=== PATIENT | female | born 1930 | race Caucasian/White ===

== ENCOUNTER 2017-02-06 06:14 | Inpatient (IN) | payer MEDICARE, BC ==
[2017-02-06 06:47] LABS: Hematocrit 41 % (35-47); Hemoglobin 14.3 g/dl (12.0-16.0); Mean Corpuscular HGB Conc 35 g/dl (31-36); Mean Corpuscular Hemoglobin 30 pg (27-31); Mean Corpuscular Volume 87 fL (80-97); Mean Platelet Volume 9 um3 (7.4-10.4); Red Blood Count 4.73 10^6/ul (4.0-5.4); Red Cell Distribution Width 13 % (10.5-15); White Blood Count 7.2 10^3/ul (3.5-10.8)
[2017-02-06 06:59] LABS: Troponin I 0.01 ng/mL (<0.04)
[2017-02-06 07:00] LABS: Albumin 3.8 g/dL (3.2-5.2); BUN/Creatinine Ratio 19.6 (8-20); Calcium 9.2 mg/dL (8.6-10.3); EGFR African American 73.9 (>60); EGFR Non-African American 57.5 (>60); Total Bilirubin 0.7 mg/dL (0.2-1.0); Total Protein 6.8 g/dL (6.4-8.9)
[2017-02-06] MEDS ORDERED: Iodixanol* (CONTRAST) 320 MG/ML 100 ML SDV IV ONE (07:06)
--- NOTE | 2017-02-06 07:48 | RAD ---
HISTORY: Dizziness COMPARISONS: None TECHNIQUE: Multiple contiguous axial CT scans were obtained of the head without intravenous contrast. FINDINGS: HEMORRHAGE/INFARCT: There is no hemorrhage or acute infarct. MASSES/SHIFT: There is no mass or shift. EXTRA-AXIAL SPACES: There are no extra-axial fluid collections. SULCI AND VENTRICLES: The sulci and ventricles are normal in size and position for the patient's stated age. CEREBRUM: There are no focal parenchymal abnormalities. BRAINSTEM: There are no focal parenchymal abnormalities. CEREBELLUM: There are no focal parenchymal abnormalities. VESSELS: There is calcification of the cavernous segments of the internal carotid arteries bilaterally and of the distal vertebral arteries bilaterally. PARANASAL SINUSES: The paranasal sinuses are clear. ORBITS: The orbits are unremarkable. BONES AND SOFT TISSUE: No bone or soft tissue abnormalities are noted. OTHER: None IMPRESSION: NO ACUTE INTRACRANIAL PATHOLOGY.
--- NOTE | 2017-02-06 07:52 | RAD ---
INDICATION: Short of breath COMPARISON: Chest x-ray February 06, 2017 TECHNIQUE: Noncontrast axial source images were obtained from the thoracic inlet to the hemidiaphragms. Coronal and sagittal reconstructed images were acquired. The thyroid is heterogeneous with multiple low density nodules. Chest wall: There are no acute abnormalities of the bony thorax or chest wall. There is sternotomy There is no supraclavicular, infraclavicular, or axillary lymphadenopathy. Lungs : There are infiltrates. There are several subcentimeter, noncalcified parenchymal nodules likely represent chronic inflammatory foci. The largest of these measures 4 mm. The pulmonary interstitium appears normal. There are no endobronchial lesions. Cardiomediastinal structures: The heart is normal in size. There is no pericardial effusion. There is no evidence of aortic aneurysm or dissection. The pulmonary vessels appear normal. There is no mediastinal or hilar adenopathy. The esophagus appears normal. Pleura : There are no pleural-based masses or effusions. Other: There are no acute or significant CT findings of the visualized upper abdomen. IMPRESSION: POSTOPERATIVE CHANGES. PROBABLE CHRONIC INFLAMMATORY FOCI.
--- NOTE | 2017-02-06 07:56 | RAD ---
INDICATION: Short of breath COMPARISON: None TECHNIQUE: An AP portable view obtained at 0707 hours is submitted. FINDINGS: Bones/Soft Tissues: There are no acute bony findings. There is prior sternotomy. Cardiomediastinal: The cardiomediastinal silhouette is normal. Lungs: There are no infiltrates. Pleura: There are no pleural effusions. Other: None IMPRESSION: NO ACTIVE DISEASE.
[2017-02-06] MEDS ORDERED: NS 0.9% 1000 ML* 1,000 ML IV ONE (09:07)
[2017-02-06 09:29] LABS: Urine Bacteria Absent (Absent); Urine Bilirubin Negative (Negative); Urine Glucose 3+(>=500 mg/dL) (Negative); Urine Nitrite Negative (Negative)
[2017-02-06] MEDS ORDERED: Ondansetron INJ* 2 MG/ML VIAL IV ONE (09:38)
[2017-02-06] MEDS ORDERED: Insulin REGULAR(*) 1 UNITS UNIT IV PUSH ONE ×2 (09:39→12:22)
[2017-02-06] MEDS ORDERED: Gabapentin CAP(*) 100 MG PO ONE (10:47)
[2017-02-06 11:35] LABS: Urine Bacteria Absent (Absent); Urine Bilirubin Negative (Negative); Urine Glucose 3+(>=500 mg/dL) (Negative); Urine Nitrite Negative (Negative)
[2017-02-06] MEDS ORDERED: LORazepam TAB(*) 1 MG PO ONE (13:07)
[2017-02-06] MEDS ORDERED: Acetaminophen TAB* 325 MG PO PRN (15:10)
[2017-02-06] MEDS ORDERED: Dextrose 50% Syringe 50 ML* 25 GM/50 ML SYRINGE IV PUSH PRN (15:10)
[2017-02-06] MEDS ORDERED: Ondansetron INJ* 2 MG/ML VIAL IV PRN (15:10)
[2017-02-06] MEDS ORDERED: NS 0.9% 1000 ML* 1,000 ML IV SCH (15:15)
[2017-02-06 15:47] LABS: Hematocrit 39 % (35-47); Hemoglobin 13.5 g/dl (12.0-16.0); Mean Corpuscular HGB Conc 35 g/dl (31-36); Mean Corpuscular Hemoglobin 30 pg (27-31); Mean Corpuscular Volume 87 fL (80-97); Mean Platelet Volume 9 um3 (7.4-10.4); Red Blood Count 4.47 10^6/ul (4.0-5.4); Red Cell Distribution Width 13 % (10.5-15); White Blood Count 8.5 10^3/ul (3.5-10.8)
[2017-02-06 16:04] LABS: Troponin I 0.01 ng/mL (<0.04)
[2017-02-06 16:18] LABS: BUN/Creatinine Ratio 16.5 (8-20); Calcium 8.7 mg/dL (8.6-10.3); EGFR African American 74.9 (>60); EGFR Non-African American 58.2 (>60)
--- NOTE | 2017-02-06 16:50 | ED ---
Ty Douglas Auryana, scribed for Curtis Banegas MD on 02/06/17 at 0735 . Progress - Progress Note Progress Note: SIGNOUT FROM DR. CONSTANTINO TO DR. BANEGAS AT 07:[address], CT CHEST, AND CXR 87 year old female presents with SOB on initial arrival to ED. She denies SOB and CP on ED physician visit but still has nausea. She is Alert and oriented. 10:30 - SPOKE WITH FAMILY - WORRIED ABOUT PATIENT BECAUSE SHE IS UNSTEADY ON HER FEET - Results/Orders Results/Orders: CT CHEST W/ CONTRAST IMPRESSION: POSTOPERATIVE CHANGES. PROBABLE CHRONIC INFLAMMATORY FOCI. CXR IMPRESSION: NO ACTIVE DISEASE. CT BRAIN IMPRESSION: NO ACUTE INTRACRANIAL PATHOLOGY DX: DIABETIC HYPERGLYCEMIA AND PERIPHERAL NEUROPATHY Re-Evaluation - Re-Evaluation First Eval Re-Evaluation Time: 13:10 - patient does not wish to be discharged home and states that she cannot walk Course/Dx - Course Course Of Treatment: Test results WNL except for glucose 304. UA contaminated even though it was a straight cath. Influenza A/B was negative. CXR: IMPRESSION: NO ACTIVE DISEASE. HEAD CT: IMPRESSION: NO ACUTE INTRACRANIAL PATHOLOGY. CHEST CT: IMPRESSION: POSTOPERATIVE CHANGES. PROBABLE CHRONIC INFLAMMATORY FOCI. In the ED course patient was hydrated and insulin given for hyperglycemia symptoms improved. I disclosed my findings and results with the family and patient - think [place] [facility] [place]iscussed with family and patient that there are no abnormal findings for admission however the patient was unable to ambulate on her own. I tried to ambulate patient myself- patient was very weak. Discussed physical exam findings with Dr. Li who accepted the patient for admission. - Diagnoses Provider Diagnoses: Peripheral neuropathy, Diabetes mellitus with hyperglycemia, Unable to ambulate - Provider Notifications Discussed Care Of Patient With: Dr. Li Time Discussed With Above Provider: 13:40 - agrees to admit patient The documentation as recorded by the Ty owusu Auryana accurately reflects the service I personally performed and the decisions made by me, Curtis Banegas MD.
[2017-02-06] MEDS: ceFAZolin VIAL(*) 1 GM in NS 0.9% 50 ML* 50 ML IVPB SCH (16:59)
[2017-02-06] MEDS: Insulin GLARGINE(*) 1 UNITS UNIT SUBCUT SCH (17:43)
[2017-02-06] MEDS: Insulin LISPRO* 1 UNITS UNIT SUBCUT SCH (17:47)
[2017-02-06] MEDS: Gabapentin CAP(*) 100 MG PO SCH (22:06)
[2017-02-06] MEDS: Heparin VIAL(*) 5000 UNITS/ML VIAL (FIVE THOUSAND) SUBCUT SCH (22:07)
[2017-02-06] MEDS: LORazepam TAB(*) 0.5 MG PO PRN (22:17)
--- NOTE | 2017-02-06 23:16 | HP ---
HISTORY AND PHYSICAL: DATE OF ADMISSION: 02/06/17 - ROOM #444 PRIMARY CARE PROVIDER: Dr. Sarah Benavides. ATTENDING PHYSICIAN WHILE IN THE HOSPITAL: Dr. Zan Li * (report dictated by Dayne Wright NP). CHIEF COMPLAINT: Weakness. HISTORY OF PRESENT ILLNESS: Ms. Tricia Daniels is an 87-year-old female patient. She has a history of diabetes, hypertension, hyperlipidemia, breast cancer, coronary artery disease, vertigo, and neuropathy. She comes in today stating that she has not been feeling well particularly over the last 6 months. She was in and out of the hospital down in [place]. She relocated up here to be closer to her family and she has noticed that she has been having issues with weakness and having difficulty. She says that she came to the hospital today because she got up this morning, she felt like something had changed. She felt like she was more weak. She felt little lightheaded particularly with position change. She felt dizzy. She felt like she was going to faint. She pressed her Life Alert and she was brought in to the hospital. She denied having any chest pain. She denied having any shortness of breath. Denied having any abdominal pain or any nausea or vomiting. No fevers or any cough. She said that she has been having some dyspnea on exertion. She says she has not had any fevers or chills. She just felt weak, felt tired, and she was concerned. She also said that she noticed that she has had some pain on her bottom. She thinks that she may have a pimple or a sore there and she says this was bothering her as well, but is not painful now. It is only if she is in one position for too long. She denied any fevers or chills. She came in to the ER. There was concern because of the weakness and the hospitalist service was asked to evaluate for admission. PAST MEDICAL HISTORY: Significant for: 1. Diabetes. 2. Hypertension. 3. Hyperlipidemia. 4. Breast cancer. 5. CAD. 6. Vertigo. 7. Neuropathy. PAST SURGICAL HISTORY: 1. She has had a CABG. 2. Laparoscopic cholecystectomy. HOME MEDICATIONS: Include: 1. Vitamin D 1000 units p.o. daily. 2. Coreg 25 mg p.o. daily. 3. Aspirin 81 mg daily. 4. Insulin aspart sliding scale subcu a.c. 5. Fish oil 1 capsule p.o. daily. 6. Losartan 100 mg daily. 7. Lantus 18 units subcu q.p.m. 8. Lipitor 10 mg p.o. daily. 9. Amlodipine 5 mg daily. 10. Neurontin 100 mg p.o. t.i.d. ALLERGIES TO MEDICATIONS: Include no known drug allergies. FAMILY HISTORY: Her mother had a history of CVA. Father passed of old age. SOCIAL HISTORY: She does not smoke. Does not drink. Surrogate decision maker is her son. REVIEW OF SYSTEMS: There is no documented fever. She denied having any significant weight change. There was no double vision. There is no ear discharge. She denies having any rhinorrhea. There is no sore throat. No thyroid enlargement. She denies having any chest pain. There was no orthopnea. There is no nocturnal dyspnea. There is no abdominal pain. No nausea. No vomiting. There was no dysuria. There was no frequency. There was no seizure. No loss of consciousness. No pruritus. There is a skin ulceration. Review of 14 systems completed, all others negative. PHYSICAL EXAMINATION GENERAL: At this time, Ms. Daniels is an 87-year-old female. She is sitting in the ER stretcher. She does not appear to be in any acute distress. VITAL SIGNS: Blood pressure 151/63 with a pulse of 66, respirations 24, O2 sat 98%, and temperature of 99.0. HEENT: Head is atraumatic and normocephalic. Eyes: EOMs are intact. Sclerae anicteric and not pale. Throat: Oral mucosa appears to be moist. No oropharyngeal erythema. NECK: Supple. LUNGS: Clear to auscultation. No wheezes, rales, or rhonchi. HEART: Sounds S1, S2. Regular rate and rhythm. No murmurs, rubs, or gallops. ABDOMEN: Soft, flat, and nontender. Bowel sounds present. EXTREMITIES: Pulses were 2+ throughout. She is able to move all 4 extremities with 5/5 strength. NEUROLOGIC: She is awake, alert, and oriented x3. Tongue midline. Civil Engineering Project Manager are equal. No gross focal deficits. SKIN: Intact with the exception she has a stage 2 pressure ulcer, it is about 2 cm x 2 cm. It was a surrounding area of erythema noted to the sacrum. Otherwise intact. LABORATORY DATA AND DIAGNOSTIC STUDIES: Revealed WBC of 7.2, RBC of 4.73, hemoglobin of 14.3, hematocrit of 41, platelet count 195. INR of 0.95. PTT of 26.7. Sodium 136, potassium 4.0, chloride of 100, bicarb 24, BUN 18, creatinine of 0.92, glucose of 304. The lactic was 1.4, calcium 9.2. Total bili 0.7, AST 12, ALT 11, alk phos 88. Troponin 0.01. Albumin of 3.8. Urine showed high specific gravity of 1.050, 1+ protein, 1+ ketones, 1+ blood, present squamous epithelial cells, 3+ glucose. She had multiple imaging here in the ER starting out with a brain CT, which revealed no intracranial pathology. She had a chest CT, which showed postoperative changes, probable chronic inflammatory foci. There were noncalcified nodules likely representing chronic inflammatory foci. She had a chest x-ray as well which on my review, I did not appreciate any acute infiltrates. Radiology read it as no active disease. There was an EKG obtained today as well, which showed a normal sinus rhythm, rate of 75. She did have a PAC. No ST elevation. She appears to have an interventricular conduction delay. It looks like a left bundle, but there is no previous EKG for comparison. Old medical records were reviewed. ASSESSMENT AND PLAN: Ms. Daniels is an 87-year-old female patient coming in to the ER today with complaints of weakness and now on evaluation in the ED, initially, they had been trying to discharge the patient; however, there was concern because of the weakness she to do well at home and we were asked to evaluate. On evaluation, there was concern that she has a new pressure ulcer that may be some cellulitis around it. She will be admitted under observation status for: 1. Weakness: It could be related to the fact that she does have an underlying infection, I think this pressure ulcer. I am going to try her on Ancef 2 g every 8 hours. In addition to this, we will get PT evaluation and her evaluated. 2. Presyncope: At this point, again, she had an episode where she felt like she was going to faint. My plan is to go ahead and get her on telemetry, cycle her troponins, check an echo as well and follow. 3. Diabetes: She has been on lispro sliding scale and Lantus. I will check an A1c . 4. Hypertension: Continue meds as prescribed. 5. Hyperlipidemia: Continue statin therapy. 6. Coronary artery disease: Continue her beta-elizabeth, statin, and aspirin. 7. Neuropathy: We will continue Neurontin 100 t.i.d. 8. Vertigo: Continue medications as prescribed. 9. Breast cancer: She is scheduled for a lumpectomy, it sounds like in the outpatient setting. She needs to follow with her primary. 10. DVT prophylaxis: She will be placed on heparin subcu as she is high risk. 11. Code status: She wishes to be a DNR. MOLST filled out. 12. Fluids, electrolytes, and nutrition: She can have a consistent carbohydrate diet. TIME SPENT: Time spent on the admission was 60 minutes; greater than half the time was spent [id number] with the patient obtaining my history and physical, other half the time spent going over the plan of care with the patient and implementing plan of care. I did discuss the plan of care with my attending, Dr. Li; he is in agreement. DAYNE WRIGHT NP CC: Dr. Sarah Benavides * [id number]/CPS #: [id number] MTDD
[2017-02-07] MEDS: ceFAZolin VIAL(*) 1 GM in NS 0.9% 50 ML* 50 ML IVPB SCH ×3 (01:12→16:27)
[2017-02-07] MEDS: Heparin VIAL(*) 5000 UNITS/ML VIAL (FIVE THOUSAND) SUBCUT SCH ×3 (05:49→21:38)
[2017-02-07] MEDS ORDERED: Carvedilol TAB* 25 MG PO SCH (08:30)
[2017-02-07] MEDS: Insulin LISPRO* 1 UNITS UNIT SUBCUT SCH ×3 (08:34→16:35)
[2017-02-07] MEDS: Losartan TAB* 25 MG PO SCH (08:35)
[2017-02-07] MEDS: Atorvastatin* 10 MG TAB PO SCH (08:35)
[2017-02-07] MEDS: amLODIPine TAB* 5 MG PO SCH (08:35)
[2017-02-07] MEDS: Gabapentin CAP(*) 100 MG PO SCH ×3 (08:35→21:34)
[2017-02-07] MEDS: Aspirin EC Low Dose* 81 MG TAB.EC PO SCH (08:35)
--- NOTE | 2017-02-07 09:46 | ECHO ---
Patient: CARLOS BETHEA [facility] Rec#: [id number] : 1930 Date: 02/07/2017 Age: 87y Height: 165.1 cm / 65.0 in Weight: 88.5 kg / 195.1 lbs Sex: F BSA: 2 Room#: [facility] Admit Date#: 02/06/2017 Type: Inpatient Referring: Dayne Wright NP Reading: Juan Anderson MD Mold Repairer: Jessica Garza RN RDCS Transthoracic Echocardiogram Indication: Shortness of breath, near syncope BP: 143/50 HR: 70 Rhythm: NSR Findings History: CAD, CABG, HTN, HLD, DM, breast cancer, vertigo, neuropathy Technical Comments: The study is technically limited due to patient body habitus. Completed at 0930. Left Ventricle: The left ventricular chamber size is normal. There is global hypokinesis of the left ventricle with minor regional variation. There is mildly decreased left ventricular systolic function. The estimated ejection fraction is 45-50%. Ventricular septal wall motion has a post-operative appearance. There is a left ventricular septal wall motion abnormality observed, possibly due to the presence of a left bundle branch block. There is an E to A reversal in the mitral valve flow pattern suggestive of diastolic dysfunction. Left Atrium: The left atrial chamber size is normal. Right Ventricle: The right ventricular chamber size and systolic function are within normal limits. Right Atrium: The right atrial cavity size is normal. There is evidence of an atrial septal aneurysm. Aortic Valve: The aortic valve is trileaflet. The aortic valve leaflets are mildly thickened. There is no evidence of aortic regurgitation. There is no evidence of aortic stenosis. Mitral Valve: The mitral valve leaflets are mildly thickened. There is a trace of mitral regurgitation. There is no evidence of mitral stenosis. Tricuspid Valve: The tricuspid valve leaflets are normal. There is trace to mild tricuspid regurgitation. Unable to estimate the right ventricular systolic pressure. Pulmonic Valve: The pulmonic valve appears normal. There is mild pulmonic regurgitation. There is no pulmonic stenosis. Pericardium: There is no significant pericardial effusion. A pericardial fat pad is visualized. Aorta: There is no dilatation of the ascending aorta. There is no dilatation of the aortic arch. The aortic root is normal in size. Pulmonary Artery: The main pulmonary artery appears normal. Venous: The inferior vena cava appears normal in size. There is a greater than 50% respiratory change in the inferior vena cava dimension. Conclusions There is global hypokinesis of the left ventricle with minor regional variation. Ventricular septal wall motion has a post-operative appearance. There is a left ventricular septal wall motion abnormality observed, possibly due to the presence of a left bundle branch block. The estimated ejection fraction is 45-50%. There is an E to A reversal in the mitral valve flow pattern suggestive of diastolic dysfunction. There is evidence of an atrial septal aneurysm. There is a trace of mitral regurgitation. There is trace to mild tricuspid regurgitation. There is mild pulmonic regurgitation. No reports of prior studies are offered for comparison. Measurements Name Value Normal Range RVDdMajor (2D) 3.4 cm (2.2 - 4.4) RAd ISD 4CH 3.8 cm (3.4 - 4.9) RA (A4C)W 4.1 cm (2.9 - 4.6) IVSd (2D) 1 cm (0.6 - 1) LVPWd (2D) 1 cm (0.6 - 1) LVIDd (2D) 4.3 cm (3.6 - 5.4) LVIDs (2D) 3.6 cm - LV FS (2D) 16 % (25 - 45) Aortic Annulus 2.1 cm (1.4 - 2.6) Ao root diameter (2D) 2.7 cm (2.1 - 3.5) Ascending Ao 2.9 cm (2.1 - 3.4) Aortic arch 2.5 cm (1.8 - 3.4) LA dimension (AP) 2D 3.4 cm (2.3 - 3.8) LAd ISD 4CH 4.4 cm (2.9 - 5.3) LA ISD 4CH W 3.8 cm (2.5 - 4.5) Name Value Normal Range LA ESV SP 4CH (A/L) 45 ml - LA ESV SP 2CH (A/L) 56 ml - LA ESV BP (A/L) 52 ml - LA ESV BP (A/L) index 26.4 ml/m2 - LA ESV SP 4CH (MOD) 38 ml - LA ESV SP 2CH (MOD) 54 ml - Name Value Normal Range MV E-wave Vmax 0.88 m/sec - MV deceleration time 193 msec - MV A-wave Vmax 1.2 m/sec - MV E:A ratio 0.7 ratio - LV septal e' Vmax 0.05 m/sec - LV lateral e' Vmax 0.06 m/sec - LV E:e' septal ratio 17.6 ratio - LV E:e' lateral ratio 14.7 ratio - Name Value Normal Range AV Vmax 1.3 m/sec - AV VTI 30 cm - AV peak gradient 7 mmHg - AV mean gradient 4 mmHg - LVOT Vmax 1.3 m/sec - LVOT VTI 30 cm - LVOT peak gradient 7 mmHg - LVOT mean gradient 4 mmHg - JENI Vmax 0.69 m/sec - Name Value Normal Range IVC diameter 1.5 cm - Name Value Normal Range PV Vmax 1 m/sec -
--- NOTE | 2017-02-07 10:21 | PN ---
Subjective Date of Service: 02/07/17 Interval History: Patient seen and examined at bedside. She reports feeling better this morning. Denies CP, SOB, abd pain, n/v. She has not felt dizzy or weak this morning or overnight. Telemetry: strips show some missed beats concerning for Mobitz Type 1 overnight Follow up strip at 9:27 show some non-conducted P-waves that may indicate Mobitz Type II. Family History: Unchanged from Admission Social History: Unchanged from Admission Past Medical History: Unchanged from Admission Objective Active Medications: Acetaminophen (Tylenol Tab*) 650 mg PO Q4H PRN PRN Reason: FEVER/PAIN Amlodipine Besylate (Norvasc Tab*) 5 mg PO DAILY [facility] Last Admin: 02/07/17 08:35 Dose: 5 mg Aspirin (Aspirin Ec Low Dose*) 81 mg PO DAILY [facility] Last Admin: 02/07/17 08:35 Dose: 81 mg Atorvastatin Calcium (Lipitor*) 10 mg PO DAILY [facility] Last Admin: 02/07/17 08:35 Dose: 10 mg Dextrose (D50w Syringe 50 Ml*) 12.5 gm IV PUSH .FOR FS < 60 - SS PRN PRN Reason: FS < 60 Gabapentin (Neurontin Cap(*)) 100 mg PO TID [facility] Last Admin: 02/07/17 08:35 Dose: 100 mg Heparin Sodium (Porcine) (Heparin Vial(*)) 5,000 units SUBCUT Q8HR [facility] Last Admin: 02/07/17 05:49 Dose: 5,000 units Cefazolin Sodium 1 gm/ Sodium (Chloride) 50 mls @ 200 mls/hr IVPB Q8H [facility] Last Admin: 02/07/17 08:34 Dose: 200 mls/hr Insulin Glargine (Lantus(*)) 80 units SUBCUT QPM [facility] Last Admin: 02/06/17 17:43 Dose: 80 unit Insulin Human Lispro (Humalog*) 0 units SUBCUT AC [facility] PRN Reason: Protocol Last Admin: 02/07/17 08:34 Dose: 3 unit Lorazepam (Ativan Tab(*)) 0.5 mg PO Q8H PRN PRN Reason: ANXIETY Last Admin: 02/06/17 22:17 Dose: 0.5 mg Losartan Potassium (Cozaar Tab*) 100 mg PO DAILY [facility] Last Admin: 05/23/17 08:35 Dose: 100 mg Ondansetron HCl (Zofran Inj*) 4 mg IV Q6H PRN PRN Reason: NAUSEA Vital Signs 02/06/17 02/06/17 02/06/17 15:00 15:20 15:30 Temperature 98.3 F Pulse Rate 77 83 Respiratory 18 16 19 Rate Blood Pressure 162/88 147/53 150/66 (mmHg) O2 Sat by Pulse 99 99 Oximetry 02/06/17 02/06/17 02/06/17 16:00 16:15 16:57 Temperature Pulse Rate 78 73 Respiratory 17 18 Rate Blood Pressure 148/80 151/54 (mmHg) O2 Sat by Pulse 99 96 Oximetry 02/06/17 02/06/17 02/06/17 17:04 18:12 18:14 Temperature Pulse Rate 79 88 Respiratory 16 Rate Blood Pressure 154/55 134/60 (mmHg) O2 Sat by Pulse 97 Oximetry 02/06/17 02/06/17 02/06/17 19:33 20:00 22:06 Temperature 98.1 F Pulse Rate 75 Respiratory 20 20 20 Rate Blood Pressure 145/55 (mmHg) O2 Sat by Pulse 97 97 Oximetry 02/06/17 02/06/17 02/07/17 22:17 23:37 00:06 Temperature 97.3 F Pulse Rate 72 Respiratory 20 16 20 Rate Blood Pressure 135/52 (mmHg) O2 Sat by Pulse 99 Oximetry 02/07/17 02/07/17 02/07/17 00:17 02:29 03:56 Temperature 97.6 F Pulse Rate 73 Respiratory 20 16 Rate Blood Pressure 143/50 (mmHg) O2 Sat by Pulse 99 99 Oximetry 02/07/17 02/07/17 02/07/17 07:53 08:00 08:35 Temperature 97.6 F Pulse Rate 71 Respiratory 16 17 16 Rate Blood Pressure 146/53 (mmHg) O2 Sat by Pulse 97 Oximetry Oxygen Devices in Use Now: None Appearance: Elderly female, lying in bed, NAD Eyes: PERRLA Ears/Nose/Mouth/Throat: Mucous Membranes Moist Neck: NL Appearance and Movements; NL JVP Respiratory: Symmetrical Chest Expansion and Respiratory Effort, Clear to Auscultation Cardiovascular: NL Sounds; No Murmurs; No JVD, RRR Abdominal: NL Sounds; No Tenderness; No Distention Extremities: No Edema Skin: - - stage II Neurological: Alert and Oriented x 3 Lines/Tubes/Other Access: Clean, Dry and Intact Peripheral IV Nutrition: Taking PO's Result Diagrams: 02/06/17 15:40 02/06/17 15:40 Microbiology and Other Data: Microbiology 02/06/17 15:25 Nasal Screen MRSA (PCR)([facility]) - Final Nasal Mrsa Negative 02/06/17 15:46 Influenza Types A,B Antigen ([facility]) - Final Nasal Specimen received for Influenza A/B Molecular testing Assess/Plan/Problems-Billing Assessment: Ms. Daniels is an 87 yo female with a PMH of DM, HTN, HLD, BrCa, CAD, vertigo, and neuropathy who presented to the ED on 02/06 with concern for weakness and presyncope. - Patient Problems (1) Pre-syncope Comment: No episodes today. Patient's telemetry strip shows missed beats - strip appears consistent with Wenckebach. Reviewed strips with Dr. Camargo; appreciate cardiology input. Patient's carvedilol held; cardiology recommends continued monitoring over next 24 hours. Patient asymptomatic during episodes this AM. Echocardiogram does not show any severe valvular abnormalities, EF 45-50%, left ventricular septal wall motion abnormality (which is consistent with apparent LBBB on patient's EKG). (2) Weakness Code(s): R53.1 - WEAKNESS Comment: May be secondary to arrhythmias Patient also has wound, which appears to have mild cellulitis. Continue Ancef. PT consult (3) Stage II pressure ulcer Code(s): L89.92 - PRESSURE ULCER OF UNSPECIFIED SITE, STAGE 2 Comment: Appreciate wound consult. Continue Mepilex and frequent repositioning. (4) Diabetes mellitus Code(s): E11.9 - TYPE 2 DIABETES MELLITUS WITHOUT COMPLICATIONS Comment: HgbA1c 6.8 Continue Lispro SSI and Lantus. Wall Man Consult requested. (5) HTN (hypertension) Code(s): I10 - ESSENTIAL (PRIMARY) HYPERTENSION Comment: Normotensive. Continue amlodipine and losartan. (6) HLD (hyperlipidemia) Code(s): E78.5 - HYPERLIPIDEMIA, UNSPECIFIED Comment: Continue atorvastatin. (7) CAD (coronary artery disease) Code(s): I25.10 - ATHSCL HEART DISEASE OF [place] CORONARY ARTERY W/O ANG PCTRS Comment: Continue ASA and atorvastatin. Coreg held due to concern for Mobitz I heart block. (8) Neuropathy Code(s): G62.9 - POLYNEUROPATHY, UNSPECIFIED Comment: Continue gabapentin. (9) Breast cancer Code(s): C50.919 - MALIGNANT NEOPLASM OF UNSP SITE OF UNSPECIFIED FEMALE BREAST Comment: Continue outpatient follow-up. Patient to have lumpectomy. (10) DVT prophylaxis Code(s): [id number] - Comment: SQ heparin Status and Disposition: Inpatient admission. D/c to home when medically stable.
[2017-02-07] MEDS: Insulin GLARGINE(*) 1 UNITS UNIT SUBCUT SCH (18:32)
--- NOTE | 2017-02-07 20:40 | CONS ---
CARDIOLOGY CONSULTATION: DATE OF CONSULT: 02/07/17 INDICATION FOR CONSULT: Bradycardia, weakness. HISTORY OF PRESENT ILLNESS: The patient is an 87-year-old female with a history of coronary artery disease, history of coronary artery bypass surgery 15 years ago, history of diabetes, who presented to the hospital because of weakness. The patient had no specific other complaints. She denied any chest pain. She denied any shortness of breath. She denied any orthopnea. She denied any lightheadedness, dizziness, or syncope. She denied any lower extremity edema. The patient had been in [place] for 25 years and recently moved back to the area. The patient had been admitted to the hospital in [place] for similar complaints without any specific diagnosis. In speaking with the patient, she says that since she has been in the [facility], she just had progressive weakness. She says it is difficult for her to walk down the end of the magana at her assisted living facility. She denied any chest pain. She denied any shortness of breath. She denied any lightheadedness or dizziness. The patient was admitted to the hospital. The patient does have a history of recent breast cancer. She was scheduled for surgical resection today at [facility]. PAST MEDICAL HISTORY: Significant for coronary artery disease, coronary artery bypass surgery 15 years ago, hypertension, hyperlipidemia, diabetes. PAST SURGICAL HISTORY: Coronary artery bypass surgery and cholecystectomy. OUTPATIENT MEDICATIONS: 1. Vitamin D 1000 a day. 2. Coreg 25 mg b.i.d. 3. Aspirin 81 mg a day. 4. Insulin sliding scale. 5. Fish oil tablets. 6. Losartan 100 mg a day. 7. Lantus insulin 18 units q.p.m. 8. Lipitor 10 mg a day. 9. Amlodipine 5 mg a day. 10. Neurontin 100 mg t.i.d. ALLERGIES: No known drug allergies. FAMILY HISTORY: Her mother had a CVA. Father of natural causes. SOCIAL HISTORY: She is . She denies tobacco or alcohol use. PHYSICAL EXAM: Height is 5 feet 5 inches, weight is 195 pounds. Temperature 97.6, heart rate is 73, blood pressure 143/50, respiratory rate is 16, oxygen saturation 99% on room air. Sclerae anicteric. Oropharynx is pink without erythema. Carotids are 2+ without bruits. JVD is normal. Thyroid is normal. Cardiac Exam: S1 and S2 without any murmurs, rubs, or gallops. Lungs are clear to auscultation. There is no dullness to percussion. Abdomen is soft, nontender , and nondistended with normoactive bowel sounds. Extremities show no edema. She has 2+ pulses throughout. The patient is awake, alert, and oriented. She moves all 4 extremities equally. DIAGNOSTIC STUDIES/LAB DATA: CBC: Within normal limits. Chemistries: Within normal limits. Troponin levels are negative. EKG today demonstrates a normal sinus rhythm, first-degree AV block, nonspecific intraventricular conduction delay. Telemetry demonstrates first- degree AV block with intermittent second-degree heart block, type 1. Occasionally, she will have 2:1 conduction with QRS rate of 35 beats per minute. The patient reportedly had an echocardiogram recently at [facility], which was unremarkable. IMPRESSION: This is an 87-year-old female with a history of coronary artery disease, diabetes, hypertension, who was admitted to the hospital with weakness. She does not have any other clearly focalizing complaints. She denies any true syncope. She denies any lightheadedness or dizziness. She was found to have intermittent second-degree heart block type 1 on the telemetry here. She was not symptomatic when she had the 2:1 heart block. In general, I think the patient has some underlying conduction abnormality based on her EKG. At this point, my recommendations are to discontinue her Coreg and observe her on telemetry. The patient may require an outpatient Holter monitor. The patient will follow up with Dr. Morelos as an outpatient. CC: Dr. Morelos, Cardiology, [facility]* [id number]/[facility] #: [id number] [facility]
[2017-02-08] MEDS: LORazepam TAB(*) 0.5 MG PO PRN ×2 (01:01→22:54)
[2017-02-08] MEDS: ceFAZolin VIAL(*) 1 GM in NS 0.9% 50 ML* 50 ML IVPB SCH ×3 (01:02→16:35)
[2017-02-08] MEDS: Heparin VIAL(*) 5000 UNITS/ML VIAL (FIVE THOUSAND) SUBCUT SCH ×3 (05:49→22:55)
[2017-02-08] MEDS: Gabapentin CAP(*) 100 MG PO SCH ×3 (09:19→22:56)
[2017-02-08] MEDS: Atorvastatin* 10 MG TAB PO SCH (09:19)
[2017-02-08] MEDS: amLODIPine TAB* 5 MG PO SCH (09:19)
[2017-02-08] MEDS: Losartan TAB* 25 MG PO SCH (09:19)
[2017-02-08] MEDS: Insulin LISPRO* 1 UNITS UNIT SUBCUT SCH ×4 (09:19→18:15)
[2017-02-08] MEDS: Aspirin EC Low Dose* 81 MG TAB.EC PO SCH (09:19)
--- NOTE | 2017-02-08 13:12 | PN ---
Subjective Date of Service: 02/08/17 - CC: VILLANUEVA and weakness Interval History: The patient was examined in her room in the presence of her two sons. The patient feels better today, able to walk around the nurses station better. The patient denies dyspnea lying in bed, did not sleep well due to roommate. No chest pain, nausea, diaphoresis with dyspnea or ever. Per patient when she came here in October she was able to walk in [place] well , now has to rest due to SOB. Sons expressed concerns about VILLANUEVA, the patient's ability to manage in independent living, not consistently taking medications and glucose control suboptimal. DIet choices not optimal for diabetes. They also are concerned about general malaise present for months, neuopathy that sounds like DM neuropathy and recent diagnosis of breast CA and coordination of care. No one feels the patient has had a stress test in [facility] recently. She was scheduled for an OP echo. Medications Active Medications: Acetaminophen (Tylenol Tab*) 650 mg PO Q4H PRN PRN Reason: FEVER/PAIN Amlodipine Besylate (Norvasc Tab*) 5 mg PO DAILY [facility] Last Admin: 02/08/17 09:19 Dose: 5 mg Aspirin (Aspirin Ec Low Dose*) 81 mg PO DAILY [facility] Last Admin: 02/08/17 09:19 Dose: 81 mg Atorvastatin Calcium (Lipitor*) 10 mg PO DAILY [facility] Last Admin: 02/08/17 09:19 Dose: 10 mg Dextrose (D50w Syringe 50 Ml*) 12.5 gm IV PUSH .FOR FS < 60 - SS PRN PRN Reason: FS < 60 Gabapentin (Neurontin Cap(*)) 100 mg PO TID [facility] Last Admin: 02/08/17 09:19 Dose: 100 mg Heparin Sodium (Porcine) (Heparin Vial(*)) 5,000 units SUBCUT Q8HR [facility] Last Admin: 02/08/17 05:49 Dose: 5,000 units Cefazolin Sodium 1 gm/ Sodium (Chloride) 50 mls @ 200 mls/hr IVPB Q8H [facility] Last Admin: 02/08/17 09:18 Dose: 200 mls/hr Insulin Glargine (Lantus(*)) 80 units SUBCUT QPM [facility] Last Admin: 02/07/17 18:32 Dose: 80 unit Insulin Human Lispro (Humalog*) 0 units SUBCUT AC [facility] PRN Reason: Protocol Last Admin: 02/08/17 12:28 Dose: 9 unit Lorazepam (Ativan Tab(*)) 0.5 mg PO Q8H PRN PRN Reason: ANXIETY Last Admin: 02/08/17 01:01 Dose: 0.5 mg Losartan Potassium (Cozaar Tab*) 100 mg PO DAILY [facility] Last Admin: 02/08/17 09:19 Dose: 100 mg Ondansetron HCl (Zofran Inj*) 4 mg IV Q6H PRN PRN Reason: NAUSEA Objective Vital Signs: Temp Pulse Resp BP Pulse Ox 98.1 F 72 18 134/52 99 02/08/17 07:29 02/08/17 07:29 02/08/17 11:19 02/08/17 07:29 02/08/17 07:29 Oxygen Devices in Use Now: Nasal Cannula Appearance: Elderly woman, centripital obesity, seated, comfortable. Eyes: No Scleral Icterus, PERRLA Ears/Nose/Mouth/Throat: Clear Oropharnyx, Mucous Membranes Moist Neck: NL Appearance and Movements; NL JVP, Trachea Midline, No Thyroid Enlargement, Masses Respiratory: Symmetrical Chest Expansion and Respiratory Effort, Clear to Auscultation Cardiovascular: NL Sounds; No Murmurs; No JVD, RRR Abdominal: NL Sounds; No Tenderness; No Distention Extremities: No Clubbing, Cyanosis - trace edema, no redness today. Skin: No Rash or Ulcers Neurological: Alert and Oriented x 3 Lines/Tubes/Other Access: Clean, Dry and Intact Peripheral IV Nutrition: Taking PO's Laboratory Results: 02/06/17 15:40 02/06/17 15:40 INR (Anticoag Therapy) 0.98 (0.89-1.11) 02/06/17 15:40 APTT 26.7 seconds (26.0-36.3) 02/06/17 06:20 Total Bilirubin 0.70 mg/dL (0.2-1.0) 02/06/17 06:20 AST 12 U/L (13-39) L 02/06/17 06:20 ALT 11 U/L (7-52) 02/06/17 06:20 Alkaline Phosphatase 88 U/L (34-104) 02/06/17 06:20 Total Protein 6.8 g/dL (6.4-8.9) 02/06/17 06:20 Albumin 3.8 g/dL (3.2-5.2) 02/06/17 06:20 Globulin 3.0 g/dL (2-4) 02/06/17 06:20 Albumin/Globulin Ratio 1.3 (1-3) 02/06/17 06:20 02/06/17 02/06/17 15:40 19:08 Troponin I 0.01 0.01 Diagnostic Imaging: CT CHEST W/ CONTRAST IMPRESSION: POSTOPERATIVE CHANGES. PROBABLE CHRONIC INFLAMMATORY FOCI. CXR IMPRESSION: NO ACTIVE DISEASE. CT BRAIN IMPRESSION: NO ACUTE INTRACRANIAL PATHOLOGY Echo: EF 45-50%, diastolic dysfunction, good valve function. EKG Data: Monitor: NSR, 2nd degree HB type 1 with sleep. Assessment/Plan 87 yo with distant CABG, mild CM, diabetes, recently diagnosed breast CA admitted for VILLANUEVA, progressive and a decline in functional ability and weakness. Wenkebach heart block noted and Coreg stopped. Mild clinical improvment overnight. Points of Discussion: Shortness of breath: large differential: Diastolic dysfunction/CHF Chronotropic incompetence Anginal equivelent Deconditioning and more. Consider addition of a low dose diuretic, HCTZ or lasix + KCl. Salt avoidance. Lexiscan myoview. Generalized weakness has a large differential. Coreg could have been a factor. Statin could impact. If B12, Vit D, thyroid, Lyme and other metabolic abnormalities have not been looked into I would do so. Diabetes alone could be the main factor. TOMAS in differential. Bradycardia I don't feel accounts for symptoms, at least in total, but agree with holding. Stay off for now and continue tele. monitor. No indication for a pacemaker at this point.
--- NOTE | 2017-02-08 13:19 | PN ---
Subjective Date of Service: 02/08/17 Interval History: Patient seen and examined at bedside. Sons Jaocb and Espinoza accompanying patient. The patient reports a progressive weakness that goes back approximately 6 months. The sons report that the patient has been in the hospital for multiple evaluations (3 times in [place]) with no acute findings to explain her symptoms. She does have known breast cancer and is due for a lumpectomy. The patient also has diabetes with untreated neuropathy. The patient admits to becoming increasingly more tired and weak but the acuity of this is unclear, per the sons. They endorse some deconditioning over the past few weeks. Concern also expressed for her ability to safely function in independent living at [place]. They are trying to move her into the assisted living section. They also voice concern for medication non-compliance and poor food choices, given the patient's diabetes. Patient states she has been feeling "a little better than normal" while she's here. Denies CP, SOB at rest, abd pain, n/v. On occasion will feel dizzy but cannot find any pattern to it. States she was able to walk farther today than before, but she did become tired. Family History: Unchanged from Admission Social History: Unchanged from Admission Past Medical History: Unchanged from Admission Objective Active Medications: Acetaminophen (Tylenol Tab*) 650 mg PO Q4H PRN PRN Reason: FEVER/PAIN Amlodipine Besylate (Norvasc Tab*) 5 mg PO DAILY [facility] Last Admin: 02/08/17 09:19 Dose: 5 mg Aspirin (Aspirin Ec Low Dose*) 81 mg PO DAILY [facility] Last Admin: 02/08/17 09:19 Dose: 81 mg Atorvastatin Calcium (Lipitor*) 10 mg PO DAILY [facility] Last Admin: 02/08/17 09:19 Dose: 10 mg Dextrose (D50w Syringe 50 Ml*) 12.5 gm IV PUSH .FOR FS < 60 - SS PRN PRN Reason: FS < 60 Gabapentin (Neurontin Cap(*)) 100 mg PO TID [facility] Last Admin: 02/08/17 09:19 Dose: 100 mg Heparin Sodium (Porcine) (Heparin Vial(*)) 5,000 units SUBCUT Q8HR [facility] Last Admin: 02/08/17 05:49 Dose: 5,000 units Cefazolin Sodium 1 gm/ Sodium (Chloride) 50 mls @ 200 mls/hr IVPB Q8H [facility] Last Admin: 02/08/17 09:18 Dose: 200 mls/hr Insulin Glargine (Lantus(*)) 80 units SUBCUT QPM [facility] Last Admin: 02/07/17 18:32 Dose: 80 unit Insulin Human Lispro (Humalog*) 0 units SUBCUT AC [facility] PRN Reason: Protocol Last Admin: 02/08/17 12:28 Dose: 9 unit Lorazepam (Ativan Tab(*)) 0.5 mg PO Q8H PRN PRN Reason: ANXIETY Last Admin: 02/08/17 01:01 Dose: 0.5 mg Losartan Potassium (Cozaar Tab*) 100 mg PO DAILY [facility] Last Admin: 02/08/17 09:19 Dose: 100 mg Ondansetron HCl (Zofran Inj*) 4 mg IV Q6H PRN PRN Reason: NAUSEA Vital Signs 02/07/17 02/07/17 02/07/17 15:03 15:53 20:00 Temperature 98.1 F Pulse Rate 63 Respiratory 20 22 20 Rate Blood Pressure 130/48 (mmHg) O2 Sat by Pulse 98 99 Oximetry 02/07/17 02/07/17 02/07/17 20:19 21:34 23:15 Temperature 97.9 F Pulse Rate 67 Respiratory 20 20 20 Rate Blood Pressure 137/48 (mmHg) O2 Sat by Pulse 99 Oximetry 02/07/17 02/08/17 02/08/17 23:34 01:01 03:01 Temperature 97.7 F Pulse Rate 72 Respiratory 20 22 16 Rate Blood Pressure 143/52 (mmHg) O2 Sat by Pulse 99 Oximetry 02/08/17 02/08/17 02/08/17 03:55 07:29 08:00 Temperature 97.5 F 98.1 F Pulse Rate 65 72 Respiratory 20 20 17 Rate Blood Pressure 138/48 134/52 (mmHg) O2 Sat by Pulse 100 99 Oximetry 02/08/17 02/08/17 09:19 11:19 Temperature Pulse Rate Respiratory 17 18 Rate Blood Pressure (mmHg) O2 Sat by Pulse Oximetry Oxygen Devices in Use Now: None Appearance: Elderly female, OOB to chair, in NAD Eyes: PERRLA Ears/Nose/Mouth/Throat: Mucous Membranes Moist Neck: NL Appearance and Movements; NL JVP Respiratory: Symmetrical Chest Expansion and Respiratory Effort Cardiovascular: NL Sounds; No Murmurs; No JVD, RRR Abdominal: NL Sounds; No Tenderness; No Distention Extremities: - - trace pretibial BLE edema Skin: - - sacral wound Neurological: Alert and Oriented x 3 Lines/Tubes/Other Access: Clean, Dry and Intact Peripheral IV Nutrition: Taking PO's Result Diagrams: 02/06/17 15:40 02/06/17 15:40 Microbiology and Other Data: Microbiology 02/06/17 15:25 Nasal Screen MRSA (PCR)([facility]) - Final Nasal Mrsa Negative 02/06/17 15:46 Influenza Types A,B Antigen ([facility]) - Final Nasal Specimen received for Influenza A/B Molecular testing Assess/Plan/Problems-Billing Assessment: Ms. Daniels is an 87 yo female with a PMH of DM, HTN, HLD, BrCa, CAD, vertigo, and neuropathy who presented to the ED on 02/06 with concern for weakness and presyncope. - Patient Problems (1) Pre-syncope Comment: No presyncopal or syncopal episodes noted by pt or nursing. Patient's carvedilol stopped for Wenckebach seen on telemetry. Patient continues to have episodes of intermittent second degree heart block with 2:1 conduction. Patient appears asymptomatic during 2:1 conduction. Echocardiogram does not show any severe valvular abnormalities, EF 45-50%, left ventricular septal wall motion abnormality (which is consistent with apparent LBBB on patient's EKG). Outpatient stress test with primary barn boss recommended. (2) Weakness Code(s): R53.1 - WEAKNESS Comment: May be secondary to arrhythmias Patient also has wound, which appears to have mild cellulitis. Continue Ancef. PT consult (3) Stage II pressure ulcer Code(s): L89.92 - PRESSURE ULCER OF UNSPECIFIED SITE, STAGE 2 Comment: Appreciate wound consult. Continue Mepilex and frequent repositioning. (4) Diabetes mellitus Code(s): E11.9 - TYPE 2 DIABETES MELLITUS WITHOUT COMPLICATIONS Comment: HgbA1c 6.8 Continue Lispro SSI and Lantus. Card Folder Consult requested. (5) HTN (hypertension) Code(s): I10 - ESSENTIAL (PRIMARY) HYPERTENSION Comment: Normotensive. Continue amlodipine and losartan. (6) HLD (hyperlipidemia) Code(s): E78.5 - HYPERLIPIDEMIA, UNSPECIFIED Comment: Continue atorvastatin. (7) CAD (coronary artery disease) Code(s): I25.10 - ATHSCL HEART DISEASE OF [place] CORONARY ARTERY W/O ANG PCTRS Comment: Continue ASA and atorvastatin. Coreg held due to concern for Mobitz I heart block. (8) Neuropathy Code(s): G62.9 - POLYNEUROPATHY, UNSPECIFIED Comment: Continue gabapentin. (9) Breast cancer Code(s): C50.919 - MALIGNANT NEOPLASM OF UNSP SITE OF UNSPECIFIED FEMALE BREAST Comment: Continue outpatient follow-up. Patient to have lumpectomy at [facility]. Will need to be rescheduled, as it was scheduled for earlier this week. (10) DVT prophylaxis Code(s): [id number] - Comment: SQ heparin Status and Disposition: Inpatient admission. Discharge planning in progress. Patient likely to need STR or assisted living. Family aware and making arrangements.
[2017-02-08 13:24] LABS: TSH (Thyroid Stimulating Horm) 2.2 mcIU/mL (0.34-5.60)
[2017-02-08] MEDS ORDERED: Hydrochlorothiazide TAB* 25 MG PO ONE (13:29)
[2017-02-08 13:31] LABS: Free T4 0.95 ng/dL (0.61-1.12)
[2017-02-08] MEDS ORDERED: Dextrose 50% Syringe 50 ML* 25 GM/50 ML SYRINGE IV PUSH PRN (13:33)
[2017-02-08] MEDS ORDERED: PPD Reading NOTE* (*USE PPD ORDER SET*) ONE (14:01)
[2017-02-08] MEDS ORDERED: PPD test dose* 5 TU/0.1 ML TEST (*USE PPD ORDER SET*) INTRADERM ONE (15:00)
[2017-02-08] MEDS: Insulin GLARGINE(*) 1 UNITS UNIT SUBCUT SCH (18:17)
[2017-02-09] MEDS: ceFAZolin VIAL(*) 1 GM in NS 0.9% 50 ML* 50 ML IVPB SCH ×2 (01:03→10:00)
[2017-02-09 05:46] LABS: Calcium 8.4 mg/dL (8.6-10.3); EGFR African American 79.9 (>60); EGFR Non-African American 62.1 (>60); Potassium 3.4 mmol/L (3.5-5.0)
[2017-02-09] MEDS: Heparin VIAL(*) 5000 UNITS/ML VIAL (FIVE THOUSAND) SUBCUT SCH ×3 (06:50→20:54)
[2017-02-09] MEDS: Insulin LISPRO* 1 UNITS UNIT SUBCUT SCH ×7 (07:19→17:57)
[2017-02-09] MEDS ORDERED: Potassium Chlor TAB* 20 MEQ TAB.ER PO ONE ×2 (07:47→10:52)
[2017-02-09] MEDS: Gabapentin CAP(*) 100 MG PO SCH ×3 (09:17→20:54)
[2017-02-09] MEDS: Losartan TAB* 25 MG PO SCH (09:18)
[2017-02-09] MEDS: Atorvastatin* 10 MG TAB PO SCH (09:18)
[2017-02-09] MEDS: Aspirin EC Low Dose* 81 MG TAB.EC PO SCH (09:18)
[2017-02-09] MEDS: Cholecalciferol TAB* 1000 UNITS PO SCH (09:18)
[2017-02-09] MEDS: amLODIPine TAB* 5 MG PO SCH (09:18)
[2017-02-09] MEDS: Hydrochlorothiazide TAB* 25 MG PO SCH (11:54)
--- NOTE | 2017-02-09 12:22 | PN ---
Subjective Date of Service: 02/09/17 Interval History: Patient seen and examined at bedside. Patient in agreement to [facility] at [place], pending approval. Denies CP, SOB, abd pain, n/v. Reports getting better with endurance. No acute concerns. Family History: Unchanged from Admission Social History: Unchanged from Admission Past Medical History: Unchanged from Admission Objective Active Medications: Acetaminophen (Tylenol Tab*) 650 mg PO Q4H PRN PRN Reason: FEVER/PAIN Amlodipine Besylate (Norvasc Tab*) 5 mg PO DAILY [facility] Last Admin: 02/09/17 09:18 Dose: 5 mg Aspirin (Aspirin Ec Low Dose*) 81 mg PO DAILY [facility] Last Admin: 02/09/17 09:18 Dose: 81 mg Atorvastatin Calcium (Lipitor*) 10 mg PO DAILY [facility] Last Admin: 02/09/17 09:18 Dose: 10 mg Cephalexin HCl (Keflex Cap*) 500 mg PO QID [facility] Cholecalciferol (Vitamin D Tab*) 1,000 units PO DAILY [facility] Last Admin: 02/09/17 09:18 Dose: 1,000 units Dextrose (D50w Syringe 50 Ml*) 12.5 gm IV PUSH .FOR FS < 60 - SS PRN PRN Reason: FS < 60 Gabapentin (Neurontin Cap(*)) 100 mg PO TID [facility] Last Admin: 02/09/17 09:17 Dose: 100 mg Heparin Sodium (Porcine) (Heparin Vial(*)) 5,000 units SUBCUT Q8HR [facility] Last Admin: 02/09/17 06:50 Dose: 5,000 units Hydrochlorothiazide (Hydrodiuril Tab*) 12.5 mg PO DAILY [facility] Last Admin: 02/09/17 11:54 Dose: 12.5 mg Insulin Glargine (Lantus(*)) 80 units SUBCUT QPM [facility] Last Admin: 02/08/17 18:17 Dose: 80 unit Insulin Human Lispro (Humalog*) 0 units SUBCUT AC [facility] PRN Reason: Protocol Last Admin: 02/09/17 07:19 Dose: Not Given Insulin Human Lispro (Humalog*) 0 units SUBCUT AC [facility] PRN Reason: Protocol Last Admin: 02/09/17 09:21 Dose: 3 unit Lorazepam (Ativan Tab(*)) 0.5 mg PO Q8H PRN PRN Reason: ANXIETY Last Admin: 02/08/17 22:54 Dose: 0.5 mg Losartan Potassium (Cozaar Tab*) 100 mg PO DAILY [facility] Last Admin: 02/09/17 09:18 Dose: 100 mg Ondansetron HCl (Zofran Inj*) 4 mg IV Q6H PRN PRN Reason: NAUSEA Pharmacy Profile Note (Ppd Reading Note*) 1 note .SEE ORDER .ONCE [facility] Stop: 02/10/17 15:01 Vital Signs 02/08/17 02/08/17 02/08/17 13:35 14:31 15:44 Temperature 97.2 F 97.7 F Pulse Rate 77 71 Respiratory 20 12 24 Rate Blood Pressure 147/49 149/47 (mmHg) O2 Sat by Pulse 100 99 Oximetry 02/08/17 02/08/17 02/08/17 16:31 19:28 20:00 Temperature 98.2 F Pulse Rate 73 Respiratory 16 16 16 Rate Blood Pressure 133/48 (mmHg) O2 Sat by Pulse 100 100 Oximetry 02/08/17 02/08/17 02/08/17 22:54 22:56 23:29 Temperature 98.0 F Pulse Rate 74 Respiratory 20 20 18 Rate Blood Pressure 142/52 (mmHg) O2 Sat by Pulse 99 Oximetry 02/09/17 02/09/17 02/09/17 00:54 00:56 04:06 Temperature 97.3 F Pulse Rate 63 Respiratory 20 20 16 Rate Blood Pressure 139/46 (mmHg) O2 Sat by Pulse 98 Oximetry 02/09/17 02/09/17 02/09/17 07:19 07:43 09:17 Temperature 98.0 F Pulse Rate 66 Respiratory 18 18 18 Rate Blood Pressure 148/47 (mmHg) O2 Sat by Pulse 99 99 Oximetry Oxygen Devices in Use Now: None Appearance: Elderly female, OOB to chair, NAD Eyes: PERRLA Ears/Nose/Mouth/Throat: Mucous Membranes Moist Neck: NL Appearance and Movements; NL JVP Respiratory: Symmetrical Chest Expansion and Respiratory Effort, Clear to Auscultation Cardiovascular: NL Sounds; No Murmurs; No JVD, RRR Abdominal: NL Sounds; No Tenderness; No Distention Extremities: - - trace BLE edema Skin: No Rash or Ulcers Neurological: Alert and Oriented x 3, NL Muscle Strength and Tone Lines/Tubes/Other Access: Clean, Dry and Intact Peripheral IV Nutrition: Taking PO's Result Diagrams: 02/06/17 15:40 02/09/17 05:04 Microbiology and Other Data: Microbiology 02/06/17 15:25 Nasal Screen MRSA (PCR)([facility]) - Final Nasal Mrsa Negative 02/06/17 15:46 Influenza Types A,B Antigen ([facility]) - Final Nasal Specimen received for Influenza A/B Molecular testing Assess/Plan/Problems-Billing Assessment: Ms. Daniels is an 87 yo female with a PMH of DM, HTN, HLD, BrCa, CAD, vertigo, and neuropathy who presented to the ED on 02/06 with concern for weakness and presyncope. - Patient Problems (1) Pre-syncope Comment: No presyncopal or syncopal episodes noted by pt or nursing. Patient's carvedilol stopped for Wenckebach seen on telemetry. Fewer episodes of intermittent second degree heart block with 2:1 conduction. Patient appears asymptomatic during 2:1 conduction. Echocardiogram does not show any severe valvular abnormalities, EF 45-50%, left ventricular septal wall motion abnormality (which is consistent with apparent LBBB on patient's EKG). Outpatient stress test with primary general car yard supervisor recommended. (2) Weakness Code(s): R53.1 - WEAKNESS Comment: With dyspnea - consider deconditioning, anginal equivalent, diastolic dysfunction Carvedilol discontinued. HCTZ started at low dose Outpatient cardiology follow up recommended Continue PT (3) Stage II pressure ulcer Code(s): L89.92 - PRESSURE ULCER OF UNSPECIFIED SITE, STAGE 2 Comment: Appreciate wound consult. Continue cephalexin. Continue Mepilex and frequent repositioning. (4) Diabetes mellitus Code(s): E11.9 - TYPE 2 DIABETES MELLITUS WITHOUT COMPLICATIONS Comment: HgbA1c 6.8 Continue Lispro SSI and Lantus. Database Administrator Consult requested. (5) HTN (hypertension) Code(s): I10 - ESSENTIAL (PRIMARY) HYPERTENSION Comment: Normotensive. Continue amlodipine and losartan. (6) HLD (hyperlipidemia) Code(s): E78.5 - HYPERLIPIDEMIA, UNSPECIFIED Comment: Continue atorvastatin. (7) CAD (coronary artery disease) Code(s): I25.10 - ATHSCL HEART DISEASE OF [place] CORONARY ARTERY W/O ANG PCTRS Comment: Continue ASA and atorvastatin. Coreg held due to concern for Mobitz I heart block. (8) Neuropathy Code(s): G62.9 - POLYNEUROPATHY, UNSPECIFIED Comment: Continue gabapentin. (9) Breast cancer Code(s): C50.919 - MALIGNANT NEOPLASM OF UNSP SITE OF UNSPECIFIED FEMALE BREAST Comment: Continue outpatient follow-up. Patient to have lumpectomy at [facility]. Will need to be rescheduled, as it was scheduled for earlier this week. (10) DVT prophylaxis Code(s): [id number] - Comment: SQ heparin Status and Disposition: Inpatient admission. Discharge planning in progress. Plan for d/c to [facility] tomorrow.
[2017-02-09] MEDS: Cephalexin CAP* 500 MG PO SCH ×3 (13:12→20:54)
[2017-02-09] MEDS: Insulin GLARGINE(*) 1 UNITS UNIT SUBCUT SCH (17:55)
[2017-02-09] MEDS ORDERED: Meclizine TAB* 12.5 MG PO ONE (18:10)
[2017-02-09] MEDS ORDERED: Meclizine TAB* 12.5 MG PO PRN (18:10)
[2017-02-09] MEDS: LORazepam TAB(*) 0.5 MG PO PRN (22:19)
--- NOTE | 2017-02-10 04:46 | DS ---
DISCHARGE SUMMARY: DATE OF ADMISSION: 02/06/17 DATE OF DISCHARGE: 02/10/17 PROVIDER: Frank Rodrigues NP ATTENDING PHYSICIAN: Jahaira Phelna MD* (as dictated by Frank Rodrigues NP) PRIMARY CARE PHYSICIANS: Sarah Benavides MD as well as Dr. Gus Morelos. CONSULTING PHYSICIANS: Cachorro Camargo MD and Pina Tong MD of Cardiology. PRIMARY DISCHARGE DIAGNOSES: 1. Weakness, suspect secondary to physical deconditioning and mild exacerbation of diastolic heart failure. 2. Sacral pressure ulcer, stage 2 with cellulitis. 3. 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 4. Diabetic peripheral neuropathy. SECONDARY DISCHARGE DIAGNOSES: 1. Type 2 diabetes. 2. Breast cancer. The patient is due for a lumpectomy at [facility]. 3. Hypertension. 4. Hyperlipidemia. 5. Coronary artery disease. 6. Vertigo. MEDICATIONS AT DISCHARGE: 1. Cholecalciferol 1000 units daily. 2. Aspirin 81 mg daily. 3. NovoLog insulin sliding scale a.c. and at bedtime. 4. [place]-3 fatty acids 1000 mg daily. 5. Losartan potassium 100 mg daily. 6. Lantus 60 units subcu q.p.m. 7. Atorvastatin 10 mg daily. 8. Amlodipine 5 mg daily. 9. Hydrochlorothiazide 12.5 mg daily. This is a new medication. 10. Miralax 17 gm daily. 11. Gabapentin 100 mg t.i.d. This is a new medication. 12. Cephalexin 500 mg q.i.d. Continue for 4 additional days. This is a new medication. DIAGNOSTIC TESTING DURING THIS ADMISSION: Transthoracic echocardiogram. Conclusions: There is global hypokinesis of the left ventricle with minor regional variation. Ventricular septal wall motion has a postoperative appearance. There is a left ventricular septal wall motion abnormality observed , possibly due to the presence of a left bundle-branch block. The estimated ejection fraction is 45% to 50%. There is an E/A reversal on the mitral valve flow pattern suggestive of diastolic dysfunctions. There is evidence of an atrial septal aneurysm. There is a trace of mitral regurgitation. There is [id number] tricuspid regurgitation. There is mild pulmonic regurgitation. No reports of prior studies are offered for comparison. CT of brain: No acute intracranial pathology. CT chest, impression: Postoperative changes. Probable chronic inflammatory foci. HOSPITAL COURSE OF STAY: For full details, please refer to the H and P provided by nurse practitioner, Dayne Wright, on 02/06/17. In summary, Ms. Daniels is an 87-year-old female who recently moved up here from [place]. She has been living at [facility]. The patient endorses a 6-month history of not feeling well and progressive weakness. She also reports at [place] that she has had increasing difficulty getting from her room to the dining area in order to get her meals. She has been having to take frequent breaks. She also reports lightheadedness or positional changes. The patient does report a recent diagnosis of breast cancer and states that she is due for a lumpectomy. She also reports that she has had soreness to her buttocks and that it becomes painful if she stays in one position for too long. During her evaluation in the ER, the patient was noted to have sacral pressure ulcer staged as II with some surrounding cellulitis. She was admitted and started on Ancef. Her other workup was benign as her labs were normal and her UA did not show any concern for infection. Her EKG upon initial evaluation was normal sinus rhythm with left bundle-branch block. There were no previous EKGs for comparison. The patient was monitored on telemetry also sometimes during that she maybe having presyncopal versus the dizziness she reported. The patient was noted to have first- degree heart block with intermittent second-degree heart block with 2:1 AV conduction on telemetry. She remained asymptomatic during these events and had no specific complaints that were comparable to complaints in the outpatient setting. She actually did report feeling better here in the hospital while receiving fluids and her antibiotics. We did have a physical therapy evaluation and continued therapy here in the hospital. It was felt that the patient does display some significant deconditioning and would benefit from subacute rehab. In addition, she has a deconditioning. The patient's son met with the team and expressed concerns for medication noncompliance, most likely secondary to the patient's forgetting. She does admit that it is difficult for her to manage her medications as well as get to the dining magana and have her food. She is also unaware of correct food choices to make for her diabetes. She would welcome more help. The family is trying to get her into [facility]; however, in the interim period, they are open to her going to [facility] for subacute rehab. In regards to the patient's weakness and dyspnea with exertion, it was felt that this maybe secondary to some mild diastolic heart failure with some mild exacerbation. Also question of anginal equivalence and chronotropic incompetence. The patient has seen Dr. Morelos of [facility] since moving up here. She was encouraged to follow up with Dr. Morelos for an outpatient chemical stress test. This was shared with the patient's son. Additionally, she is also to follow up at [facility] to reschedule her lumpectomy that she is due for. Her generalized weakness does have a large differential diagnosis to consider. We did stop her carvedilol secondary to the heart block. She states that she has been on her statin for quite some time; however, it maybe worth considering stopping her statin in the future if his weakness persists. The patient's TSH and thyroid function look normal. He B12 is within normal limits. She does have a mildly low vitamin D, but is currently taking vitamin D supplements, although the compliance of this is uncertain at this point in time. Her Lyme serology was also negative as well as her flu swab. Again, the patient does not have any sign of urinary tract infection. In regards to her pressure ulcer, the patient has responded well with the antibiotics and will continue this for a full 7 days of treatment. The patient should also work on glucose control. We did do an overnight pulse oximetry, which did not show any significant desaturation events. Per Cardiology, there was no indication for a pacemaker at this point. 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 CONCERNS AT DISCHARGE: Ms. Daniels is discharged to [facility] on 02/10/17. OUTPATIENT FOLLOWUP NEEDS: The patient needs to have a chemical stress arranged through her primary care provider's office. She also needs to have her lumpectomy rescheduled with [facility]. Her PCP should also reevaluate her pressure ulcer to the sacrum. The patient has been started on low-dose hydrochlorothiazide as she does demonstrate trace bilateral lower extremity edema in addition to her complaints of dyspnea. She is also newly started on gabapentin for her neuropathy and should be monitored for tolerance of medication and further titration. DIET: Low-sodium diabetic diet. ACTIVITY: As tolerated. CONDITION: Stable. DISPOSITION: To [facility]. TIME SPENT: Time spent on this discharge was approximately 50 minutes. Again, this is only a brief summary of the patient's hospital course of stay. For full details, please refer to the full medical record. If you have any further questions or need further assistance, please feel free to contact me at . FRANK RODRIGUES NP CC: Jahaira Phelan MD; Dr. Benavides; Dr. Morelos* [id number]/CPS #: [id number]
[2017-02-10] MEDS: Heparin VIAL(*) 5000 UNITS/ML VIAL (FIVE THOUSAND) SUBCUT SCH (05:35)
--- NOTE | 2017-02-10 09:45 | PN ---
Subjective Date of Service: 02/10/17 Interval History: Patient seen and examined at [facility]. Patient reports improvement in dizziness last evening, after receiving meclizine. Denies SOB, chest pain, n/v. Patient in agreement with plan for d/c to [place] for [facility]. Requested a shower before discharge. Family History: Unchanged from Admission Social History: Unchanged from Admission Past Medical History: Unchanged from Admission Objective Active Medications: Acetaminophen (Tylenol Tab*) 650 mg PO Q4H PRN PRN Reason: FEVER/PAIN Amlodipine Besylate (Norvasc Tab*) 5 mg PO DAILY [facility] Last Admin: 02/09/17 09:18 Dose: 5 mg Aspirin (Aspirin Ec Low Dose*) 81 mg PO DAILY [facility] Last Admin: 02/09/17 09:18 Dose: 81 mg Atorvastatin Calcium (Lipitor*) 10 mg PO DAILY [facility] Last Admin: 02/09/17 09:18 Dose: 10 mg Cephalexin HCl (Keflex Cap*) 500 mg PO QID [facility] Last Admin: 02/09/17 20:54 Dose: 500 mg Cholecalciferol (Vitamin D Tab*) 1,000 units PO DAILY [facility] Last Admin: 02/09/17 09:18 Dose: 1,000 units Dextrose (D50w Syringe 50 Ml*) 12.5 gm IV PUSH .FOR FS < 60 - SS PRN PRN Reason: FS < 60 Last Admin: 02/10/17 07:36 Dose: 12.5 gm Gabapentin (Neurontin Cap(*)) 100 mg PO TID [facility] Last Admin: 02/09/17 20:54 Dose: 100 mg Heparin Sodium (Porcine) (Heparin Vial(*)) 5,000 units SUBCUT Q8HR [facility] Last Admin: 02/10/17 05:35 Dose: 5,000 units Hydrochlorothiazide (Hydrodiuril Tab*) 12.5 mg PO DAILY [facility] Last Admin: 02/09/17 11:54 Dose: 12.5 mg Insulin Glargine (Lantus(*)) 60 units SUBCUT QPM [facility] Insulin Human Lispro (Humalog*) 0 units SUBCUT AC [facility] PRN Reason: Protocol Last Admin: 02/09/17 17:57 Dose: 2 unit Insulin Human Lispro (Humalog*) 0 units SUBCUT AC [facility] PRN Reason: Protocol Last Admin: 02/09/17 17:46 Dose: Not Given Lorazepam (Ativan Tab(*)) 0.5 mg PO Q8H PRN PRN Reason: ANXIETY Last Admin: 02/09/17 22:19 Dose: 0.5 mg Losartan Potassium (Cozaar Tab*) 100 mg PO DAILY [facility] Last Admin: 02/09/17 09:18 Dose: 100 mg Meclizine HCl (Antivert Tab*) 12.5 mg PO Q8HR PRN PRN Reason: VERTIGO Ondansetron HCl (Zofran Inj*) 4 mg IV Q6H PRN PRN Reason: NAUSEA Pharmacy Profile Note (Ppd Reading Note*) 1 note .SEE ORDER .ONCE [facility] Stop: 02/10/17 15:01 Vital Signs 02/09/17 02/09/17 02/09/17 11:15 13:12 15:11 Temperature 98.2 F 98.4 F Pulse Rate 80 77 Respiratory 20 16 20 Rate Blood Pressure 137/55 149/54 (mmHg) O2 Sat by Pulse 100 99 Oximetry 02/09/17 02/09/17 02/09/17 15:12 19:49 20:00 Temperature 97.9 F Pulse Rate 76 Respiratory 17 20 18 Rate Blood Pressure 140/52 (mmHg) O2 Sat by Pulse 97 97 Oximetry 02/09/17 02/09/17 02/10/17 20:54 22:19 00:19 Temperature Pulse Rate Respiratory 18 18 16 Rate Blood Pressure (mmHg) O2 Sat by Pulse Oximetry 02/10/17 00:32 Temperature 97.7 F Pulse Rate 66 Respiratory 16 Rate Blood Pressure 127/43 (mmHg) O2 Sat by Pulse 98 Oximetry Oxygen Devices in Use Now: None Appearance: Elderly female, OOB to chair, NAD Eyes: PERRLA Ears/Nose/Mouth/Throat: Mucous Membranes Moist Neck: NL Appearance and Movements; NL JVP Respiratory: Symmetrical Chest Expansion and Respiratory Effort, Clear to Auscultation Cardiovascular: NL Sounds; No Murmurs; No JVD, RRR Abdominal: NL Sounds; No Tenderness; No Distention Extremities: - - trace pretibial edema Skin: - - sacral pressure ulcer, surrounding skin non-erythmatous Neurological: Alert and Oriented x 3 Lines/Tubes/Other Access: Clean, Dry and Intact Peripheral IV Nutrition: Taking PO's Result Diagrams: 02/06/17 15:40 02/09/17 05:04 Microbiology and Other Data: Microbiology 02/06/17 15:25 Nasal Screen MRSA (PCR)([facility]) - Final Nasal Mrsa Negative 02/06/17 15:46 Influenza Types A,B Antigen ([facility]) - Final Nasal Specimen received for Influenza A/B Molecular testing Assess/Plan/Problems-Billing Assessment: Ms. Daniels is an 87 yo female with a PMH of DM, HTN, HLD, BrCa, CAD, vertigo, and neuropathy who presented to the ED on 02/06 with concern for weakness and presyncope. - Patient Problems (1) [place] (type) I (Wenckebach's) atrioventricular block Code(s): I44.1 - ATRIOVENTRICULAR BLOCK, SECOND DEGREE Comment: Improved after stopping carvedilol Intermittent second degree heart block with 2:1 conduction. Patient appears asymptomatic during 2:1 conduction. Echocardiogram does not show any severe valvular abnormalities, EF 45-50%, left ventricular septal wall motion abnormality (which is consistent with apparent LBBB on patient's EKG). Outpatient stress test with primary research professional recommended. (2) Diastolic CHF Code(s): I50.30 - UNSPECIFIED DIASTOLIC (CONGESTIVE) HEART FAILURE Comment: Mild acute on chronic exacerbation suspected Patient with dyspnea, large differential to consider in addition to diastolic dysfunction Continue HCTZ - edema improved Outpatient cardiology follow-up (3) Weakness Code(s): R53.1 - WEAKNESS Comment: With dyspnea - consider deconditioning, anginal equivalent, diastolic dysfunction Carvedilol discontinued. HCTZ started at low dose Outpatient cardiology follow up recommended Continue PT (4) Stage II pressure ulcer Code(s): L89.92 - PRESSURE ULCER OF UNSPECIFIED SITE, STAGE 2 Comment: Appreciate wound consult. Continue cephalexin. Continue Mepilex and frequent repositioning. (5) Diabetes mellitus Code(s): E11.9 - TYPE 2 DIABETES MELLITUS WITHOUT COMPLICATIONS Comment: HgbA1c 6.8 Continue Lispro SSI and Lantus. Lantus decreased due to hypoglycemia this AM. Tool And Die Assembler Consult requested. (6) HTN (hypertension) Code(s): I10 - ESSENTIAL (PRIMARY) HYPERTENSION Comment: Normotensive. Continue amlodipine and losartan. (7) HLD (hyperlipidemia) Code(s): E78.5 - HYPERLIPIDEMIA, UNSPECIFIED Comment: Continue atorvastatin. (8) CAD (coronary artery disease) Code(s): I25.10 - ATHSCL HEART DISEASE OF [place] CORONARY ARTERY W/O ANG PCTRS Comment: Continue ASA and atorvastatin. Coreg held due to concern for Mobitz I heart block. (9) Neuropathy Code(s): G62.9 - POLYNEUROPATHY, UNSPECIFIED Comment: Continue gabapentin. (10) Breast cancer Code(s): C50.919 - MALIGNANT NEOPLASM OF UNSP SITE OF UNSPECIFIED FEMALE BREAST Comment: Continue outpatient follow-up. Patient to have lumpectomy at [facility]. Will need to be rescheduled, as it was scheduled for earlier this week. (11) DVT prophylaxis Code(s): AHU2964 - Comment: SQ heparin Status and Disposition: Inpatient admission. Discharge planning in progress. D/c to [facility].
[2017-02-10] MEDS: Insulin LISPRO* 1 UNITS UNIT SUBCUT SCH ×2 (10:04→10:05)
[2017-02-10] MEDS: Atorvastatin* 10 MG TAB PO SCH (10:17)
[2017-02-10] MEDS: Gabapentin CAP(*) 100 MG PO SCH (10:17)
[2017-02-10] MEDS: amLODIPine TAB* 5 MG PO SCH (10:18)
[2017-02-10] MEDS: Losartan TAB* 25 MG PO SCH (10:18)
[2017-02-10] MEDS: Cholecalciferol TAB* 1000 UNITS PO SCH (10:20)
[2017-02-10] MEDS: Hydrochlorothiazide TAB* 25 MG PO SCH (10:20)
[2017-02-10] MEDS: Cephalexin CAP* 500 MG PO SCH (10:22)
[2017-02-10] MEDS ORDERED: Polyethylene Glycol 3350* 17 GM PACKET PO SCH (11:00)
[2017-02-10 11:57] VITALS: BP 137/42
[2017-02-10] MEDS: Aspirin EC Low Dose* 81 MG TAB.EC PO SCH (12:23)
[2017-02-10] MEDS ORDERED: PPD Reading 48-72 HRS NOTE SCH (15:00)
[2017-02-10] MEDS ORDERED: Insulin GLARGINE(*) 1 UNITS UNIT SUBCUT SCH (18:00)
== END 2017-02-10 13:20 | DRG 308 ==
LOC: ED 06:14 → MED 14:36 → MEDTELE 15:36
PROVIDERS: ADMIT Hospitalist; ATTEND Internal Medicine
DX: I44.1 Atrioventricular block, second degree (principal); I50.33 Acute on chronic diastolic (congestive) heart failure; L89.152 Pressure ulcer of sacral region, stage 2; I25.3 Aneurysm of heart; E11.42 Type 2 diabetes mellitus with diabetic polyneuropathy; I42.9 Cardiomyopathy, unspecified; I11.0 Hypertensive heart disease with heart failure; L03.818 Cellulitis of other sites; C50.919 Malignant neoplasm of unspecified site of unspecified female breast; E11.628 Type 2 diabetes mellitus with other skin complications; E11.649 Type 2 diabetes mellitus with hypoglycemia without coma; E11.65 Type 2 diabetes mellitus with hyperglycemia; E78.5 Hyperlipidemia, unspecified; I25.10 Atherosclerotic heart disease of native coronary artery without angina pectoris; I44.7 Left bundle-branch block, unspecified; I08.1 Rheumatic disorders of both mitral and tricuspid valves; R55 Syncope and collapse; R53.1 Weakness; R42 Dizziness and giddiness; Z95.1 Presence of aortocoronary bypass graft; Z90.49 Acquired absence of other specified parts of digestive tract; Z82.3 Family history of stroke; Z79.82 Long term (current) use of aspirin; Z79.4 Long term (current) use of insulin
CPT/HCPCS: 36415; 70450; 71010; 71260; 80048; 80053; 81003; 81015; 82306; 82607; 83036; 83605; 84439; 84443; 84484; 85025; 85610; 85730; 86618; 87040; 87086; 87502; 87641; 93005; 93306; 94762; A9270-GY; J0690; J1644; J2405; Q9967

== ENCOUNTER 2017-04-24 16:14 | Emergency (ER) | payer MEDICARE, BC ==
--- NOTE | 2017-04-24 16:46 | UC ---
General HPI - HPI Summary HPI Summary: just feels bad head feels foggy, son believes she is out of some medicine, patient states she did take her Ativan today, denies chest pain pressure.stands and pivots to bed without difficulty - History of Current Complaint Chief Complaint: UCGeneralIllness Stated Complaint: HEAD FEELS FOGGY,PA FEELS SICK Time Seen by Provider: 04/24/17 16:25 Hx Obtained From: Patient, Family/Web Search Evaluator Onset/Duration: Gradual Onset, Lasting Days, Worse Since - today Timing: Constant Onset Severity: Moderate Current Severity: Moderate Character: feels foggy in here head, no focal neurodeficits feels like this has been going on for days but is worse today Associated Signs & Symptoms: Positive: Confusion - "Foggy", Other - patient feels this could be her anxiety as well - Allergy/Home Medications Allergies/Adverse Reactions: Allergies Allergy/AdvReac Type Severity Reaction Status Date / Time No Known Allergies Allergy Verified 04/24/17 17:57 Home Medications: Home Medications Acetaminophen TAB* [Tylenol TAB*] 2 tab PO Q4HR PRN 04/24/17 [History Confirmed 04/24/17] Bisacodyl [Dulcolax] 1 supp PRN 04/24/17 [History] Insulin Glargine [Lantus Solostar 5x3 ML PENS] 10 units SUBCUT DAILY 04/24/17 [ History Confirmed 04/24/17] LORazepam TAB(*) [Ativan 0.5 MG TAB (*)] 1 tab PO Q8HR PRN 04/24/17 [History Confirmed 04/24/17] Multiple Vitamins W/ Minerals [Multi Vitamin and Mineral] 1 tab PO DAILY [History Confirmed 04/24/17] PMH/Surg Hx/FS Hx/Imm Hx Previously Healthy: No Endocrine History: Diabetes Cardiovascular History: Cardiac Disease, Hypertension Psychological History: Anxiety, Depression - Surgical History Surgical History: Yes Surgery Procedure, Year, and Place: TRIPLE BYPASS - Family History Known Family History: Positive: None - Social History Occupation: Retired Lives: Alone Alcohol Use: None Substance Use Type: None Smoking Status (MU): Never Smoked Tobacco - Immunization History Most Recent Influenza Vaccination: unk Most Recent Pneumonia Vaccination: unk Review of Systems Constitutional: Negative Skin: Negative Eyes: Negative ENT: Negative Respiratory: Negative Cardiovascular: Negative Gastrointestinal: Negative Genitourinary: Negative Motor: Negative Neurovascular: Negative Musculoskeletal: Negative Neurological: Headache Psychological: Anxious All Other Systems Reviewed And Are Negative: Yes Physical Exam Triage Information Reviewed: Yes Appearance: No Pain Distress, Ill-Appearing - chronic---no acute distress, Obese Vital Signs Reviewed: Yes Eye Exam: Normal Eyes: Positive: Conjunctiva Clear ENT Exam: Normal ENT: Positive: Normal ENT inspection, Hearing grossly normal, Pharynx normal, TMs normal. Negative: Nasal congestion, Nasal drainage, Trismus, Muffled/ hoarse voice Dental Exam: Normal Neck exam: Normal Neck: Positive: Supple, Nontender, No Lymphadenopathy Respiratory Exam: Normal Respiratory: Positive: Chest non-tender, Lungs clear, Normal breath sounds, No respiratory distress, No accessory muscle use Cardiovascular Exam: Normal Cardiovascular: Positive: RRR, No Murmur, Pulses Normal, Brisk Capillary Refill Abdominal Exam: Normal Abdomen Description: Positive: Nontender, No Organomegaly, Soft Bowel Sounds: Positive: Present Musculoskeletal Exam: Normal Musculoskeletal: Positive: Strength Intact, ROM Intact, No Edema Neurological Exam: Normal Neurological: Positive: Alert, Muscle Tone Normal Psychological Exam: Normal Skin Exam: Normal Diagnostics - Laboratory Diagnostic Studies Completed/Ordered: FSBS 286 Course/Dx - Course Course Of Treatment: d/c with sons driving her to hospital for further evaluation - Differential Dx - Multi-Symptom Differential Diagnoses: Cardiac Ischemia, Metabolic Abnormality, Sepsis, Urinary Tract Infection Provider Diagnoses: Fatigue, hypertension Discharge - Discharge Plan Condition: Guarded Disposition: HOME Referrals: Miles Georges MD [Primary Care Provider] - As Soon As Possible Additional Instructions: We recommend immediate follow up in the emergency department---
[2017-04-24 16:55] VITALS: BP 149/66
== END 2017-04-24 17:22 | disposition home or self-care (01) ==
LOC: UCEAST 16:14
DX: R53.83 Other fatigue (principal); I10 Essential (primary) hypertension; F41.9 Anxiety disorder, unspecified; F32.9 Major depressive disorder, single episode, unspecified; E11.9 Type 2 diabetes mellitus without complications; Z79.4 Long term (current) use of insulin
CPT/HCPCS: 93005; 99212; G0463

== ENCOUNTER 2017-04-24 17:52 | Emergency (ER) | payer MEDICARE ==
[2017-04-24] MEDS ORDERED: LORazepam TAB(*) 1 MG PO ONE (20:22)
[2017-04-24] MEDS ORDERED: Gabapentin CAP(*) 100 MG PO ONE (20:23)
[2017-04-24] MEDS ORDERED: NS 0.9% 1000 ML* 1,000 ML IV ONE (20:24)
[2017-04-24 20:51] LABS: Venous Bicarbonate HCO3 21.3 mmol/L (24-28)
[2017-04-24 20:52] LABS: Hematocrit 39 % (35-47); Hemoglobin 13.4 g/dl (12.0-16.0); Mean Corpuscular HGB Conc 34 g/dl (31-36); Mean Corpuscular Hemoglobin 30 pg (27-31); Mean Corpuscular Volume 88 fL (80-97); Mean Platelet Volume 9 um3 (7.4-10.4); Red Blood Count 4.44 10^6/ul (4.0-5.4); Red Cell Distribution Width 12 % (10.5-15); White Blood Count 12.8 10^3/ul (3.5-10.8)
[2017-04-24 21:05] LABS: Albumin 4.2 g/dL (3.2-5.2); BUN/Creatinine Ratio 18.8 (8-20); C Reactive Protein 6.25 mg/L (< 5.00); Calcium 9.8 mg/dL (8.6-10.3); EGFR African American 70.4 (>60); EGFR Non-African American 54.7 (>60); Potassium 4.5 mmol/L (3.5-5.0); Total Bilirubin 0.6 mg/dL (0.2-1.0); Total Protein 7.2 g/dL (6.4-8.9)
--- NOTE | 2017-04-24 21:14 | RAD ---
INDICATION: Hyperglycemia COMPARISON: Most recent comparison chest x-rays dated February 06, 2017 TECHNIQUE: Single AP portable view of the chest was obtained. FINDINGS: Image quality is compromised due to the relative inferiority of a portable chest x-ray. Postsurgical findings stable from the previous chest x-ray include sternotomy wires and a surgical clip overlying the left of midline below left hemithorax. The heart and mediastinum exhibit normal size and contour. There is atherosclerotic calcification overlying the arch of the aorta. The lungs are grossly clear. There is no evidence of a large pleural effusion. Visualized bones are normal for the patient's age. IMPRESSION: No radiographic evidence for acute cardiopulmonary abnormality on this portable chest x-ray.
[2017-04-24 22:03] VITALS: BP 143/36
[2017-04-24 22:18] LABS: Urine Bacteria Absent (Absent); Urine Bilirubin Negative (Negative); Urine Glucose 2+(150 mg/dL) (Negative); Urine Nitrite Negative (Negative)
--- NOTE | 2017-04-25 00:02 | ED ---
I, Kevin,Atilio, scribed for Bigg Osborne MD on 04/24/17 at 2025 . HPI Diabetic - HPI Summary HPI Summary: This 87 y/o female presents to ED for elevated blood glucose since a week ago. Pt is a resident in assisted living unit of [facility]. Son present at bedside reports elevated blood sugar throughout beginning of April, with highest being 370. Positive general weakness, near syncope, and nausea. Negative dysuria, CP, or SOB. PMHx is significant for known DM that is controlled with 10 unit of Lantus every morning and 60 units every night. Pt last ate 0500 AM this morning. BG is 264 today. Other PMHx includes phase I breast CA, CAD s/p triple bypass, DM, and peripheral neuropathy. Negative CHF. - History Of Current Complaint Chief Complaint: EDDiabeticProb Time Seen by Provider: 04/24/17 20:03 Hx Obtained From: Patient, Family/Business Rules Analyst - son and present at bedside , Medical Records Onset/Duration: Lasting Weeks, Still Present Timing: Constant - 1 week Character: Alert Associated Signs & Symptoms: Nausea - Allergies/Home Medications Allergies/Adverse Reactions: Allergies Allergy/AdvReac Type Severity Reaction Status Date / Time No Known Allergies Allergy Verified 04/24/17 17:57 PMH/Surg Hx/FS Hx/Imm Hx Endocrine/Hematology History: Reports: Hx Diabetes Denies: Hx Thyroid Disease Cardiovascular History: Reports: Hx Hypertension Respiratory History: Denies: Hx Asthma, Hx Chronic Obstructive Pulmonary Disease (COPD) GI History: Denies: Hx Ulcer - Cancer History Cancer Type, Location and Year: RECENT DX BREAST - Surgical History Surgery Procedure, Year, and Place: TRIPLE BYPASS Infectious Disease History: No Infectious Disease History: Reports: Hx Shingles Denies: Hx Clostridium Difficile, Hx Hepatitis, Hx Human Immunodeficiency Virus (HIV), Hx of Known/Suspected MRSA, Hx Tuberculosis, Hx Known/Suspected VRE , Hx Known/Suspected VRSA, History Other Infectious Disease, Traveled Outside the [place] in Last 30 Days - Family History Known Family History: Positive: Other - Positive CVA - Social History Alcohol Use: None Substance Use Type: Reports: None Smoking Status (MU): Never Smoked Tobacco Review of Systems Negative: Fever Positive: Other - Elevated blood glucose Positive: Nausea. Negative: Vomiting Positive: frequency - Increased. Negative: dysuria Positive: Weakness - general, Syncope - near All Other Systems Reviewed And Are Negative: Yes Physical Exam - Summary Physical Exam Summary: The patient is well-nourished in no acute distress and in no acute pain. Decreased skin turgor HEENT: The head is normocephalic and atraumatic. The pupils are equal and reactive. The conjunctivae are clear and without drainage. Nares are patent and without drainage. Mouth reveals DRY mucous membranes and the throat is without erythema and exudate. The external ears are intact. The ear canals are patent and without drainage. The tympanic membranes are intact. Neck is supple with full range of motion and non-tender. There are no carotid bruits. There is no neck vein distension. Respiratory: Chest is non-tender. Lungs are clear to auscultation and breath sounds are symmetrical and equal. Cardiovascular: Heart is regular rate and rhythm. There is no murmur or rub auscultated. There is no peripheral edema and pulses are symmetrical and equal. Abdomen: The abdomen is soft and non-tender. There are normal bowel sounds heard in all four quadrants and there is no organomegaly palpated. Musculoskeletal: There is no back pain noted. Extremities are non-tender with full range of motion. There is THREE SECOND capillary refill. There is no peripheral edema or calf tenderness elicited. Neurological: Patient is alert and oriented to person, place and time. The patient has symmetrical motor strength in all four extremities. Cranial nerves are grossly intact. Deep tendon reflexes are symmetrical and equal in all four extremities. Psychiatric: The patient has an appropriate affect but noted anxious. Triage Information Reviewed: Yes Vital Signs On Initial Exam: Initial Vitals Temp Pulse Resp BP Pulse Ox 98.0 F 80 16 148/49 99 04/24/17 17:57 04/24/17 17:57 04/24/17 17:57 04/24/17 17:57 04/24/17 17:57 Vital Signs Reviewed: Yes - Coty Coma Scale Coma Scale Total: 15 Diagnostics - Vital Signs Vital Signs Temp Pulse Resp BP Pulse Ox 04/24/17 19:41 79 132/86 98 04/24/17 19:00 83 98 04/24/17 18:17 77 98 04/24/17 18:08 98.4 F 81 16 152/52 98 04/24/17 17:57 98.0 F 80 16 148/49 99 - Laboratory Lab Results: Lab Results 04/24/17 04/24/17 04/24/17 Range/Units 20:43 20:43 20:43 WBC 12.8 H (3.5-10.8) 10^3/ul RBC 4.44 (4.0-5.4) 10^6/ul Hgb 13.4 (12.0-16.0) g/dl Hct 39 (35-47) % MCV 88 (80-97) fL MCH 30 (27-31) pg MCHC 34 (31-36) g/dl RDW 12 (10.5-15) % Plt Count 277 (150-450) 10^3/ul MPV 9 (7.4-10.4) um3 Neut % (Auto) 70.3 (38-83) % Lymph % (Auto) 19.8 L (25-47) % [place] % (Auto) 9.0 (1-9) % Eos % (Auto) 0.4 (0-6) % Baso % (Auto) 0.5 (0-2) % Absolute Neuts (auto) 9.0 H (1.5-7.7) 10^3/ul Absolute Lymphs (auto) 2.5 (1.0-4.8) 10^3/ul Absolute Monos (auto) 1.1 H (0-0.8) 10^3/ul Absolute Eos (auto) 0.1 (0-0.6) 10^3/ul Absolute Basos (auto) 0.1 (0-0.2) 10^3/ul Absolute Nucleated RBC 0 10^3/ul Nucleated RBC % 0 VBG pH (7.33-7.43) VBG pCO2 (41-51) mmHg VBG pO2 (35-45) mmHg VBG HCO3 (24-28) mmol/L VBG O2 Saturation (70-80) % VBG Base Excess (0-4) Sodium 129 L (133-145) mmol/L Potassium 4.5 (3.5-5.0) mmol/L Chloride 97 L (101-111) mmol/L Carbon Dioxide 24 (22-32) mmol/L Anion Gap 8 (2-11) mmol/L BUN 18 (6-24) mg/dL Creatinine 0.96 H (0.51-0.95) mg/dL Est GFR ( Amer) 70.4 (>60) Est GFR (Non-Af Amer) 54.7 (>60) BUN/Creatinine Ratio 18.8 (8-20) Glucose 186 H (70-100) mg/dL POC Glucose (mg/dL) (70-100) mg/dL Lactic Acid 1.2 (0.5-2.0) mmol/L Calcium 9.8 (8.6-10.3) mg/dL Total Bilirubin 0.60 (0.2-1.0) mg/dL AST 14 (13-39) U/L ALT 12 (7-52) U/L Alkaline Phosphatase 91 (34-104) U/L C-Reactive Protein 6.25 H (< 5.00) mg/L Total Protein 7.2 (6.4-8.9) g/dL Albumin 4.2 (3.2-5.2) g/dL Globulin 3.0 (2-4) g/dL Albumin/Globulin Ratio 1.4 (1-3) Urine Color Urine Appearance Urine pH (5-9) Ur Specific [place] (1.010-1.030) Urine Protein (Negative) Urine Ketones (Negative) Urine Blood (Negative) Urine Nitrate (Negative) Urine Bilirubin (Negative) Urine Urobilinogen (Negative) Ur Leukocyte Esterase (Negative) Urine WBC (Auto) (Absent) Urine RBC (Auto) (Absent) Ur Squamous Epith Cells (Absent) Urine Bacteria (Absent) Urine Glucose (Negative) 04/24/17 04/24/17 04/24/17 Range/Units 20:43 22:00 22:15 WBC (3.5-10.8) 10^3/ul RBC (4.0-5.4) 10^6/ul Hgb (12.0-16.0) g/dl Hct (35-47) % MCV (80-97) fL MCH (27-31) pg MCHC (31-36) g/dl RDW (10.5-15) % Plt Count (150-450) 10^3/ul MPV (7.4-10.4) um3 Neut % (Auto) (38-83) % Lymph % (Auto) (25-47) % [place] % (Auto) (1-9) % Eos % (Auto) (0-6) % Baso % (Auto) (0-2) % Absolute Neuts (auto) (1.5-7.7) 10^3/ul Absolute Lymphs (auto) (1.0-4.8) 10^3/ul Absolute Monos (auto) (0-0.8) 10^3/ul Absolute Eos (auto) (0-0.6) 10^3/ul Absolute Basos (auto) (0-0.2) 10^3/ul Absolute Nucleated RBC 10^3/ul Nucleated RBC % VBG pH 7.38 (7.33-7.43) VBG pCO2 35 L (41-51) mmHg VBG pO2 33 L (35-45) mmHg VBG HCO3 21.3 L (24-28) mmol/L VBG O2 Saturation 72.7 (70-80) % VBG Base Excess -3.9 L (0-4) Sodium (133-145) mmol/L Potassium (3.5-5.0) mmol/L Chloride (101-111) mmol/L Carbon Dioxide (22-32) mmol/L Anion Gap (2-11) mmol/L BUN (6-24) mg/dL Creatinine (0.51-0.95) mg/dL Est GFR ( Amer) (>60) Est GFR (Non-Af Amer) (>60) BUN/Creatinine Ratio (8-20) Glucose (70-100) mg/dL POC Glucose (mg/dL) 235 H (70-100) mg/dL Lactic Acid (0.5-2.0) mmol/L Calcium (8.6-10.3) mg/dL Total Bilirubin (0.2-1.0) mg/dL AST (13-39) U/L ALT (7-52) U/L Alkaline Phosphatase (34-104) U/L C-Reactive Protein (< 5.00) mg/L Total Protein (6.4-8.9) g/dL Albumin (3.2-5.2) g/dL Globulin (2-4) g/dL Albumin/Globulin Ratio (1-3) Urine Color Yellow Urine Appearance Cloudy Urine pH 5.0 (5-9) Ur Specific [place] 1.012 (1.010-1.030) Urine Protein 1+(30 mg/dl) H (Negative) Urine Ketones Negative (Negative) Urine Blood 1+ H (Negative) Urine Nitrate Negative (Negative) Urine Bilirubin Negative (Negative) Urine Urobilinogen Negative (Negative) Ur Leukocyte Esterase 2+ H (Negative) Urine WBC (Auto) 3+(>20/hpf) H (Absent) Urine RBC (Auto) 1+(3-5/hpf) H (Absent) Ur Squamous Epith Cells Present H (Absent) Urine Bacteria Absent (Absent) Urine Glucose 2+(150 mg/dl) H (Negative) Result Diagrams: 04/24/17 20:43 04/24/17 20:43 Lab Statement: Any lab studies that have been ordered have been reviewed, and results considered in the medical decision making process. - Radiology CXR Xray Interpretation: No Acute Changes - No radiographic evidence for acute cardiopulmonary abnormality on this portable chest x-ray. Radiology Interpretation Completed By: Radiologist Re-Evaluation - Re-Evaluation First Eval Re-Evaluation Time: 22:23 Comment: MD in room to update son and on UA, Blood work, and CXR. Diabetic Course/Dx - Course Assessment/Plan: This 87 y/o female with known DM presents to ED due to elevated glucose since a week ago. Son and present at bedside shows [facility] report with blood glucose as high as 370. Pt is currently taking Lantus 10 units in morning and 60 units at night. They also expresses concern over acute on chronic peripheral neuropathy and dosage strength of Lorazepam. Blood work is noted with mildly elevated WBC and CRP, blood glucose of 235. UA is noted with 3+ WBC, 1+ RBC, and 2+ Leuk. Pt is given lorazepam and gabapentin to symptomatically treated her aggravated neuropathy. Pt is stable for discharge. Plan of care involving discharge and outpatient f/u is discussed with and son, and they are agreeable. - Diagnoses Differential Dx: Diabetic Ketoacidosis, Hyperglycemia, Pneumonia, Pyelonephritis , Other - anxiety Provider Diagnoses: Hyperglycemia, UTI (urinary tract infection) Discharge - Discharge Plan Condition: Stable Disposition: HOME Prescriptions: Ciprofloxacin TAB* [Cipro 500 MG TAB*] 500 mg PO BID #14 tab LORazepam TAB(*) [Ativan 1 MG TAB (*)] 1 mg PO Q8H PRN #15 tab MDD 3 PRN Reason: anxiety Patient Education Materials: Ciprofloxacin (By mouth), Lorazepam (By mouth), Diabetic Hyperglycemia (ED) Referrals: Miles Georges MD [Primary Care Provider] - 2 Days Additional Instructions: Increase your morning Lantus to 20 units. Lorazepam 1 mg tid PRN. Please take Cipro as instructed. The documentation as recorded by the Kevin owusu Soohyun accurately reflects the service I personally performed and the decisions made by me, Bigg Osborne MD.
== END 2017-04-24 22:46 | disposition home or self-care (01) ==
LOC: ED 17:52
DX: R73.9 Hyperglycemia, unspecified (principal); N39.0 Urinary tract infection, site not specified; R53.1 Weakness; R11.0 Nausea
CPT/HCPCS: 36415; 71010; 80053; 81003; 81015; 82803; 83605; 85025; 86140; 87086; 99285; A9270-GY

== ENCOUNTER 2017-08-11 14:21 | Inpatient (IN) | payer MEDICARE ==
--- NOTE | 2017-08-11 15:37 | RAD ---
HISTORY: Shortness of breath and cough COMPARISONS: April 24, 2017 VIEWS: 1: frontal portable view of the chest at 3:10 PM FINDINGS: LINES AND TUBES: None. CARDIOMEDIASTINAL SILHOUETTE: The cardiomediastinal silhouette is normal for portable technique. PLEURA: The costophrenic angles are sharp. No pleural abnormalities are noted. LUNG PARENCHYMA: The lungs are clear. ABDOMEN: The upper abdomen is clear. There is no subphrenic gas. BONES AND SOFT TISSUES: The patient is status post median sternotomy. IMPRESSION: NO ACTIVE CARDIOPULMONARY DISEASE.
[2017-08-11 16:14] LABS: Hematocrit 34 % (35-47); Hemoglobin 11.6 g/dl (12.0-16.0); Mean Corpuscular HGB Conc 35 g/dl (31-36); Mean Corpuscular Hemoglobin 29 pg (27-31); Mean Corpuscular Volume 84 fL (80-97); Mean Platelet Volume 8 um3 (7.4-10.4); Red Blood Count 3.97 10^6/ul (4.0-5.4); Red Cell Distribution Width 13 % (10.5-15); White Blood Count 11.4 10^3/ul (3.5-10.8)
[2017-08-11 16:30] LABS: Albumin 3.9 g/dL (3.2-5.2); BUN/Creatinine Ratio 21.8 (8-20); C Reactive Protein 2.79 mg/L (< 5.00); EGFR African American 60.1 (>60); EGFR Non-African American 46.8 (>60); Globulin 2.7 g/dL (2-4); Potassium 4.4 mmol/L (3.5-5.0); Total Bilirubin 0.4 mg/dL (0.2-1.0); Total Protein 6.6 g/dL (6.4-8.9)
[2017-08-11] MEDS ORDERED: guaiFENesin ER TAB 600 MG PO ONE (17:26)
[2017-08-11] MEDS ORDERED: Polyethylene Glycol 3350* 17 GM PACKET PO PRN (19:15)
[2017-08-11] MEDS ORDERED: Acetaminophen TAB* 325 MG PO PRN (19:15)
[2017-08-11] MEDS ORDERED: Dextrose 50% Syringe 50 ML* 25 GM/50 ML SYRINGE IV PUSH PRN (19:16)
[2017-08-11] MEDS: NS 0.9% 1000 ML* 1,000 ML IV SCH (20:42)
[2017-08-11] MEDS: Insulin LISPRO* 1 UNITS UNIT SUBCUT SCH (21:30)
[2017-08-11] MEDS: guaiFENesin ER TAB 600 MG PO SCH (21:32)
[2017-08-11] MEDS: Gabapentin CAP(*) 300 MG PO SCH (21:32)
[2017-08-11] MEDS: LORazepam TAB(*) 1 MG PO SCH (21:32)
--- NOTE | 2017-08-11 21:32 | RAD ---
HISTORY: Left foot pain TECHNIQUE: Multiple transverse and longitudinal ultrasound images were obtained of the veins of the left lower extremity using grayscale, color Doppler, and spectral Doppler imaging with and without compression and with augmentation. FINDINGS: VEINS: The common femoral vein, deep femoral vein, femoral vein and popliteal vein are compressible throughout their course, with normal flow on color Doppler imaging and normal response to augmentation on spectral Doppler imaging. SOFT TISSUES: Grossly normal. No large popliteal fossa cyst was identified. IMPRESSION: No sonographic evidence of deep vein thrombosis.
[2017-08-11] MEDS: Heparin VIAL(*) 5000 UNITS/ML VIAL (FIVE THOUSAND) SUBCUT SCH (21:35)
--- NOTE | 2017-08-11 22:14 | HP ---
CC: Dr. Georges * HISTORY AND PHYSICAL: DATE OF ADMISSION: 08/11/17 PRIMARY CARE PROVIDER: Dr. Georges. CHIEF COMPLAINT: Shortness of breath, cough and difficulty bringing up mucus. HISTORY OF PRESENT ILLNESS: Ms. Daniels is an 87-year-old female who has a history of hypertension, hyperlipidemia, past history of breast cancer, type 2 diabetes, coronary artery disease and diabetic neuropathy, who presents to the emergency room with complaints of shortness of breath, cough and the inability to bring up sputum. The patient states for approximately the last 1 week, she has had cold-like symptoms. Initially, she was not having any problems bringing up any mucus. Today after lunch she noted because she was unable bring up phlegm that she felt like stuck in her throat and she felt short of breath. Because of this she presented to the emergency room. She did receive a dose of Mucinex in the emergency room and feels much better now. While in the ER, lab work was obtained, which revealed low sodium level and for this the patient is being admitted for further treatment. PAST MEDICAL HISTORY: 1. Type 2 diabetes. 2. Hypertension. 3. Hyperlipidemia. 4. Breast cancer. 5. Coronary artery disease. 6. Diabetic neuropathy. PAST SURGICAL HISTORY: 1. CABG. 2. Lap carlos. 3. Bilateral cataract extraction. MEDICATIONS: 1. MiraLax 17 g p.o. daily p.r.n. constipation. 2. Tylenol 650 mg p.o. q.4 hours p.r.n. pain. 3. Lantus 50 units subcutaneous q.a.m. and 30 units subcutaneous q. p.m. 4. Zoloft 25 mg p.o. daily. 5. Gabapentin 300 mg p.o. t.i.d. 6. Lorazepam 1 mg p.o. b.i.d. 7. Multivitamin 1 tablet p.o. daily. 8. Vitamin D 2000 units p.o. daily. 9. Losartan 100 mg p.o. daily. 10. Hydrochlorothiazide 25 mg p.o. daily. 11. Lipitor 10 mg p.o. daily. 12. Aspirin 81 mg p.o. daily. 13. Arimidex 1 mg p.o. daily. 14. Amlodipine 5 mg p.o. daily. ALLERGIES: No known drug allergies. FAMILY HISTORY: Mother of complications from a stroke. She also had hypertension. Father approximately at age 100, but his cause of unknown. SOCIAL HISTORY: The patient is a lifelong nonsmoker. She does not drink alcohol. She lives at the assisted-living portion of [facility]. She is . She has 2 sons who are both listed as her healthcare proxy. REVIEW OF SYSTEMS: A complete 11-system review of systems is obtained, pertinent positives and negatives are as per HPI; and in addition, she complains of a wound on her buttocks, that has been present for sometimes, which she used to follow in the wound clinic, but has been discharged from the wound clinic recently. PHYSICAL EXAMINATION GENERAL: The patient is a well developed elderly female sitting in the stretcher in no acute distress. VITAL SIGNS: Blood pressure 148/79, pulse 87, respirations 20, temp 99.0, O2 sat 98% on room air. HEENT: Pupils are equal. They are round. There is evidence of prior cataract extraction. Extraocular muscles are intact. Oropharynx is clear. Oral mucosa is moist. There is no submandibular, cervical, or supraclavicular adenopathy. Thyroid is not enlarged. No thyroid nodules are noted. PULMONARY: Lungs are clear to auscultation bilaterally, though breast sounds are diminished in all lung hills. CARDIAC: Normal S1, S2. Regular rate and rhythm. I do not appreciate any murmurs. There is asymmetry of the lower extremities with the left calf being larger than the right. There is trace edema of the left. ABDOMEN: Bowel sounds present. Abdomen is soft, nontender and nondistended. MUSCULOSKELETAL: There is no cyanosis or clubbing of the digits. There is full active range of motion of all 4 extremities. NEUROLOGIC: Cranial nerves II through XII are grossly intact. Sensation is intact to light touch throughout. Strength is 5/5 and symmetric in both upper and lower extremities bilaterally. PSYCH: The patient is alert. She is oriented x3. Affect appears appropriate. SKIN: Warm and dry. There are no rashes. There does appear to be some petechiae to the bilateral lower extremities that the patient states has been present since her previous hospitalizations. DIAGNOSTIC STUDIES/LAB DATA: WBC 11.4, hemoglobin 11.6, hematocrit 34, platelets 285. Sodium 122, potassium 4.4, chloride 89, CO2 of 25, BUN 24, creatinine 1.10, glucose 248, calcium 9.0. Bilirubin 0.4, AST 14, ALT 14, alk phos 26. CPK 33, troponin 0, CRP 2.79, BNP 27, albumin 3.9. Chest x-ray: No active cardiopulmonary disease. EKG reveals normal sinus rhythm without any acute ST-T wave abnormalities. There are, however, perhaps biphasic to inverted Q wave anteriorly. ASSESSMENT AND PLAN: Ms. Daniels is an 87-year-old female with a history of hypertension, hyperlipidemia and type 2 diabetes, who presents to the emergency room with complaints of shortness of breath, cough and inability to bring up sputum, but is found to have hyponatremia and for this she is being admitted under observation status. 1. Cough and sputum and shortness of breath. This likely represents a viral illness. The patient's white blood cell count is mildly elevated at 11.4. This will be followed tomorrow as well as her fever curve and if the white blood cell count increases or she develops fever, we will go ahead and start azithromycin for perhaps of bacterial bronchitis, if not this likely represents a viral illness and does not need any treatment other than conservative management. 2. Hyponatremia. This is likely multifactorial, likely secondary to poor oral intake as it appears that she is likely volume depleted as her sodium and chloride are low and her creatinine is higher than her baseline. She will be started on normal saline at 100 mL per hour. A followup sodium level will be obtained tomorrow morning. Additionally, she is on hydrochlorothiazide at baseline and this likely is contributing. I am going to stop her hydrochlorothiazide and we will need to monitor her sodium level and blood pressure off this medication. 3. Hypertension. The patient's blood pressure is mildly elevated. At this time, I am stopping her hydrochlorothiazide, so we will need to follow this. If her blood pressure becomes markedly elevated we will need to consider adding an additional agent as at this point she should be be off the hydrochlorothiazide. 4. Type 2 diabetes. The patient will be maintained on her usual dose of Lantus and additionally she will be started on a lispro sliding scale with fingersticks q.a.c., h.s. Hemoglobin A1c will be added to labs from the ER. 5. Hyperlipidemia. The patient will be continued on her usual dose of Lipitor. 6. History of breast cancer. The patient will continue on Arimidex. 7. Coronary artery disease. No complaints of chest pain at this point. Troponin is negative. Continue aspirin and Lipitor. 8. Diabetic neuropathy. Continue gabapentin though the patient states that she does not feel it helps very much. 9. DVT prophylaxis. According to the Adult Thrombosis Prophylaxis Risk Factor Assessment Guide, the patient has a total risk factor score of 5 making her the highest risk, heparin 5000 units subcutaneous q.8 hours is going to be utilized for DVT prophylaxis. 10. Code status is DNR. Again the patient indicates that both sons are her healthcare proxy. TIME SPENT: Sixty five minutes were spent admitting this patient. [id number]/CPS #: [id number] DORI
[2017-08-12] MEDS: Heparin VIAL(*) 5000 UNITS/ML VIAL (FIVE THOUSAND) SUBCUT SCH ×3 (07:12→21:44)
[2017-08-12 07:16] LABS: Hematocrit 32 % (35-47); Hemoglobin 11.2 g/dl (12.0-16.0); Mean Corpuscular HGB Conc 35 g/dl (31-36); Mean Corpuscular Hemoglobin 30 pg (27-31); Mean Corpuscular Volume 84 fL (80-97); Mean Platelet Volume 8 um3 (7.4-10.4); Red Blood Count 3.77 10^6/ul (4.0-5.4); Red Cell Distribution Width 13 % (10.5-15); White Blood Count 9.7 10^3/ul (3.5-10.8)
[2017-08-12 07:31] LABS: BUN/Creatinine Ratio 22.8 (8-20); Calcium 8.7 mg/dL (8.6-10.3); EGFR African American 66.4 (>60); EGFR Non-African American 51.6 (>60); Potassium 3.8 mmol/L (3.5-5.0)
--- NOTE | 2017-08-12 07:33 | ED ---
Micki Douglas Gabriel, scribed for Curtis Banegas MD on 08/11/17 at 1505 . Respiratory - HPI Summary HPI Summary: This patient is a 87 year old F BIBA to [facility] with a chief complaint of difficulty breathing since a few hours ago. Patient denies cough, rhinorrhea, fever, chest pain, and n/v/d. - History of Current Complaint Chief Complaint: EDShortnessOfBreath Stated Complaint: DIFFICULTY BREATHING Hx Obtained From: Patient Onset/Duration: Sudden Onset, Resolved Pain Intensity: 0 Alleviating Factor(s): Spontaneous Resolution Associated Signs and Symptoms: Negative - cough, rhinorrhea, fever, chest pain, and n/v/d. - Allergy/Home Medications Allergies/Adverse Reactions: Allergies Allergy/AdvReac Type Severity Reaction Status Date / Time No Known Allergies Allergy Verified 04/24/17 17:57 Home Medications: Home Medications Acetaminophen TAB* [Tylenol TAB*] 650 mg PO Q4H PRN 08/11/17 [History Confirmed 08/11/17] Anastrozole (NF) [Arimidex (NF)] 1 mg PO DAILY 08/11/17 [History Confirmed 08/11] Aspirin Low Dose CHEW TAB* [Aspirin Low Dose TAB*] 81 mg PO DAILY 08/11/17 [ History Confirmed 08/11/17] Cholecalciferol TAB* [Vitamin D TAB*] 2,000 units PO DAILY 08/11/17 [History Confirmed 08/11/17] Gabapentin CAP(*) [Neurontin 300 CAP(*)] 300 mg PO TID 08/11/17 [History Confirmed 08/11/17] Hydrochlorothiazide TAB* [Hydrodiuril TAB*] 25 mg PO DAILY 08/11/17 [History Confirmed 08/11/17] Insulin GLARGINE(*) [Lantus(*)] 30 units SUBCUT QPM 08/11/17 [History Confirmed 08/11/17] Insulin GLARGINE(*) [Lantus(*)] 50 units SUBCUT QAM 08/11/17 [History Confirmed 08/11/17] LORazepam TAB(*) [Ativan 1 MG TAB (*)] 1 mg PO BID MDD 2mg 08/11/17 [History Confirmed 08/11/17] Losartan TAB* [Cozaar TAB*] 100 mg PO DAILY 08/11/17 [History Confirmed 08/11/17 ] Multivitamins/Minerals TAB* [Theragran/minerals TAB*] 1 tab PO DAILY 08/11/17 [ History Confirmed 08/11/17] Polyethylene Glycol 3350* [Miralax*] 17 gm PO DAILY PRN 08/11/17 [History Confirmed 08/11/17] Sertraline* [Zoloft*] 25 mg PO DAILY 08/11/17 [History Confirmed 08/11/17] amLODIPine TAB* [Norvasc 5 mg TAB*] 5 mg PO DAILY 08/11/17 [History Confirmed ] PMH/Surg Hx/FS Hx/Imm Hx Previously Healthy: No Endocrine/Hematology History: Reports: Hx Diabetes Denies: Hx Thyroid Disease Cardiovascular History: Reports: Hx Hypertension Respiratory History: Denies: Hx Asthma, Hx Chronic Obstructive Pulmonary Disease (COPD) GI History: Denies: Hx Ulcer - Cancer History Cancer Type, Location and Year: RECENT DX BREAST - Surgical History Surgery Procedure, Year, and Place: TRIPLE BYPASS Infectious Disease History: No Infectious Disease History: Reports: Hx Shingles Denies: Hx Clostridium Difficile, Hx Hepatitis, Hx Human Immunodeficiency Virus (HIV), Hx of Known/Suspected MRSA, Hx Tuberculosis, Hx Known/Suspected VRE , Hx Known/Suspected VRSA, History Other Infectious Disease, Traveled Outside the [place] in Last 30 Days - Family History Known Family History: Positive: None, Other - Positive CVA - Social History Alcohol Use: None Substance Use Type: Reports: None Smoking Status (MU): Never Smoked Tobacco Review of Systems Negative: Fever Negative: Nasal Discharge Negative: Chest Pain Negative: Cough Negative: Vomiting, Diarrhea, Nausea All Other Systems Reviewed And Are Negative: Yes Physical Exam - Summary Physical Exam Summary: VITAL SIGNS: Reviewed. GENERAL: ~Patient is an elderly female who is lying comfortable in the stretcher. ~Patient is not in any acute respiratory distress. HEAD AND FACE: No signs of trauma. ~No ecchymosis, hematomas or skull depressions. No sinus tenderness. EYES: PERRLA, EOMI x 2, No injected conjunctiva, no nystagmus. EARS: Ear canals and tympanic membranes are within normal limits. MOUTH: Oropharynx within normal limits. NECK: Supple, trachea is midline, no adenopathy, no JVD, no carotid bruit, no c- spine tenderness, neck with full ROM. CHEST: Symmetric, no tenderness at palpation LUNGS: Clear to auscultation bilaterally. No wheezing or crackles. CVS: Regular rate and rhythm, S1 and S2 present, no murmurs or gallops appreciated. ABDOMEN: Soft, non-tender. No signs of distention. No rebound no guarding, and no masses palpated. Bowel sounds are normal. EXTREMITIES: FROM in all major joints, no edema, no cyanosis or clubbing. NEURO: Alert and oriented x 3. No acute neurological deficits. Speech is normal and follows commands. SKIN: Dry and warm Triage Information Reviewed: Yes Vital Signs On Initial Exam: Initial Vitals Temp Pulse Resp BP Pulse Ox 99 F 87 20 148/79 98 08/11/17 14:29 08/11/17 14:29 08/11/17 14:29 08/11/17 14:29 08/11/17 14:29 Vital Signs Reviewed: Yes Diagnostics - Vital Signs Vital Signs Temp Pulse Resp BP Pulse Ox 08/11/17 14:29 99 F 87 20 148/79 98 - Laboratory Result Diagrams: 08/11/17 16:01 08/11/17 16:01 Lab Statement: Any lab studies that have been ordered have been reviewed, and results considered in the medical decision making process. - Radiology CXR Radiology Interpretation Completed By: Radiologist - NO ACTIVE CARDIOPULMONARY DISEASE., ED physician has reviewed this radiology report and agrees. - EKG 15:07 Cardiac Rate: NL EKG Rhythm: Sinus Rhythm - 86 BPM EKG Interpretation: no ST elevations Disposition - Course Assessment/Plan: Labs without any significant abnormalities except for slight anemia and sodium level of 122. EKG shows a NSR at 86 BPM w/o ST elevations.CXR impression shows no acute pathology. In the ED course an IV access was obtained. 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 Pt was started with IV fluids, at this point I discussed the findings with Dr. Nielsen who accepted the patient for acute hyponatremia. Pt is hemodynamically stable, alert and oriented x3. - Diagnoses Provider Diagnoses: Hyponatremia Discharge - Discharge Plan Condition: Stable Disposition: ADMITTED TO [facility] Referrals: Miles Georges MD [Primary Care Provider] - The documentation as recorded by the Micki owusu Gabriel accurately reflects the service I personally performed and the decisions made by me, Curtis Banegas MD.
[2017-08-12] MEDS: Insulin LISPRO* 1 UNITS UNIT SUBCUT SCH ×4 (08:36→21:29)
[2017-08-12] MEDS ORDERED: amLODIPine TAB* 5 MG PO SCH (09:00)
[2017-08-12] MEDS: CMCS: Anastrozole (NF) 1 MG TAB PO SCH (09:34)
[2017-08-12] MEDS: Insulin GLARGINE(*) 1 UNITS UNIT SUBCUT SCH (09:34)
[2017-08-12] MEDS: Losartan TAB* 25 MG PO SCH (09:35)
[2017-08-12] MEDS: LORazepam TAB(*) 1 MG PO SCH ×3 (09:35→21:18)
[2017-08-12] MEDS: Gabapentin CAP(*) 300 MG PO SCH ×3 (09:35→21:18)
[2017-08-12] MEDS: Multivitamins/Minerals TAB PO SCH (09:35)
[2017-08-12] MEDS: guaiFENesin ER TAB 600 MG PO SCH ×2 (09:35→21:18)
[2017-08-12] MEDS: Aspirin Low Dose CHEW TAB* 81 MG PO SCH (09:35)
[2017-08-12] MEDS: Sertraline* 25 MG TAB PO SCH (09:35)
[2017-08-12] MEDS: Atorvastatin* 10 MG TAB PO SCH (09:35)
[2017-08-12] MEDS: Cholecalciferol TAB* 1000 UNITS PO SCH (09:35)
[2017-08-12] MEDS: NS 0.9% 1000 ML* 1,000 ML IV SCH (11:54)
--- NOTE | 2017-08-12 13:48 | PN ---
Subjective Date of Service: 08/12/17 Interval History: Pt is feeling better today than yesterday. She states she has not had any more issues with cough or feeling like she could not bring up sputum. She is anxious and would like to go home. Family History: Unchanged from Admission Social History: Unchanged from Admission Past Medical History: Unchanged from Admission Objective Active Medications: Acetaminophen (Tylenol Tab*) 650 mg PO Q4H PRN PRN Reason: PAIN Amlodipine Besylate (Norvasc Tab*) 5 mg PO DAILY [facility] Last Admin: 08/12/17 09:35 Dose: 5 mg Anastrozole (Arimidex (Nf)) 1 mg PO DAILY [facility] Last Admin: 08/12/17 09:34 Dose: 1 mg Aspirin (Aspirin Low Dose Tab*) 81 mg PO DAILY [facility] Last Admin: 08/12/17 09:35 Dose: 81 mg Atorvastatin Calcium (Lipitor*) 10 mg PO DAILY [facility] Last Admin: 08/12/17 09:35 Dose: 10 mg Cholecalciferol (Vitamin D Tab*) 2,000 units PO DAILY [facility] Last Admin: 08/12/17 09:35 Dose: 2,000 units Dextrose (D50w Syringe 50 Ml*) 12.5 gm IV PUSH .FOR FS < 60 - SS PRN PRN Reason: FS < 60 Gabapentin (Neurontin Cap(*)) 300 mg PO TID [facility] Last Admin: 08/12/17 09:35 Dose: 300 mg Guaifenesin (Mucinex*) 600 mg PO BID [facility] Last Admin: 08/12/17 09:35 Dose: 600 mg Heparin Sodium (Porcine) (Heparin Vial(*)) 5,000 units SUBCUT Q8HR [facility] Last Admin: 08/12/17 07:12 Dose: Not Given Sodium Chloride (Ns 0.9% 1000 Ml*) 1,000 mls @ 100 mls/hr IV PER RATE [facility] Last Admin: 08/12/17 11:54 Dose: 100 mls/hr Insulin Glargine (Lantus(*)) 30 units SUBCUT QPM [facility] Insulin Glargine (Lantus(*)) 50 units SUBCUT QAM [facility] Last Admin: 08/12/17 09:34 Dose: 50 units Insulin Human Lispro (Humalog*) 0 units SUBCUT ACHS [facility] PRN Reason: Protocol Last Admin: 08/12/17 12:26 Dose: 9 units Lorazepam (Ativan Tab(*)) 1 mg PO BID [facility] Last Admin: 08/12/17 09:35 Dose: 1 mg Losartan Potassium (Cozaar Tab*) 100 mg PO DAILY [facility] Last Admin: 08/12/17 09:35 Dose: 100 mg Multivitamins/Minerals (Theragran/Minerals Tab*) 1 tab PO DAILY [facility] Last Admin: 08/12/17 09:35 Dose: 1 tab Polyethylene Glycol/Electrolytes (Miralax*) 17 gm PO DAILY PRN PRN Reason: CONSTIPATION Sertraline HCl (Zoloft*) 25 mg PO DAILY [facility] Last Admin: 08/12/17 09:35 Dose: 25 mg Vital Signs 08/11/17 08/11/17 08/11/17 20:30 21:00 21:32 Temperature 97.5 F Pulse Rate 78 Respiratory 18 16 16 Rate Blood Pressure 157/90 (mmHg) O2 Sat by Pulse 100 Oximetry 08/11/17 08/12/17 08/12/17 23:31 00:05 03:30 Temperature 97.5 F 97.9 F Pulse Rate 79 83 Respiratory 16 20 12 Rate Blood Pressure 144/51 149/54 (mmHg) O2 Sat by Pulse 98 99 Oximetry 08/12/17 08/12/17 08/12/17 04:21 07:38 09:35 Temperature 97.8 F Pulse Rate 84 Respiratory 12 20 Rate Blood Pressure 148/54 (mmHg) O2 Sat by Pulse 99 Oximetry 08/12/17 11:52 Temperature Pulse Rate Respiratory 18 Rate Blood Pressure (mmHg) O2 Sat by Pulse Oximetry Oxygen Devices in Use Now: None Appearance: Elderly female sitting in a chair, eating lunch, NAD Eyes: No Scleral Icterus Ears/Nose/Mouth/Throat: Mucous Membranes Moist Respiratory: Symmetrical Chest Expansion and Respiratory Effort, Clear to Auscultation - diminished breath sounds in all lung hills Cardiovascular: NL Sounds; No Murmurs; No JVD, RRR, - - trace LE edema Abdominal: NL Sounds; No Tenderness; No Distention Extremities: No Clubbing, Cyanosis Skin: No Rash or Ulcers, No Nodules or Sclerosis Neurological: Alert and Oriented x 3 Result Diagrams: 08/12/17 06:57 08/12/17 06:57 Microbiology and Other Data: Microbiology 08/11/17 20:45 Influenza Types A,B Antigen (HUGO) - Final Nasopharyngeal Specimen received for Influenza A/B Molecular testing Assess/Plan/Problems-Billing Ms Daniels is an 87 yo F who has a h/o HTN, HLD, type II DM and a h/o breast cancer who presented to the ER with c/o cough and a difficult time bringing up sputum and was found to have significant hyponatremia. - Patient Problems (1) Hyponatremia Current Visit: Yes Status: Acute Code(s): E87.1 - HYPO-OSMOLALITY AND HYPONATREMIA SNOMED Code(s): 73198219 Comment: Likely secondary to volume depletion. Na level is improving with hydration. Her creatinine was up slightly compared to her baseline but this too is improving with NS. Will continue fluids overnight again tonight and likely home tomorrow. (2) Diabetes mellitus Current Visit: Yes Status: Chronic Code(s): E11.9 - TYPE 2 DIABETES MELLITUS WITHOUT COMPLICATIONS SNOMED Code(s): 75378286 Comment: Sugars have fluctuated quite a bit but her HbA1c is acceptable at 7.2%. I would rather her sugars run high than low at her advanced age. (3) CAD (coronary artery disease) Current Visit: Yes Status: Chronic Code(s): I25.10 - ATHSCL HEART DISEASE OF [place] CORONARY ARTERY W/O ANG PCTRS SNOMED Code(s): 12076535 Comment: Continue ASA and atorvastatin. (4) HLD (hyperlipidemia) Current Visit: Yes Status: Acute Code(s): E78.5 - HYPERLIPIDEMIA, UNSPECIFIED SNOMED Code(s): 71814346 Comment: Continue atorvastatin. (5) HTN (hypertension) Current Visit: Yes Status: Chronic Code(s): I10 - ESSENTIAL (PRIMARY) HYPERTENSION SNOMED Code(s): 10818222 Comment: BP is moderately elevated off the HCTZ. Will increase the amlodipine and monitor the BP. (6) Neuropathy Current Visit: Yes Status: Acute Code(s): G62.9 - POLYNEUROPATHY, UNSPECIFIED SNOMED Code(s): 290492663 Comment: Continue gabapentin. (7) DVT prophylaxis Current Visit: Yes Status: Acute Code(s): WXI0025 - SNOMED Code(s): 484112897 Comment: SQ heparin (8) DNR (do not resuscitate) Current Visit: Yes Status: Acute
[2017-08-12] MEDS ORDERED: Insulin GLARGINE(*) 1 UNITS UNIT SUBCUT SCH (18:00)
[2017-08-12 21:52] LABS: Urine Bilirubin Negative (Negative); Urine Glucose 2+(150 mg/dL) (Negative); Urine Nitrite Negative (Negative)
[2017-08-13] MEDS: NS 0.9% 1000 ML* 1,000 ML IV SCH (01:19)
[2017-08-13 03:39] VITALS: BP 138/49
[2017-08-13 05:08] LABS: BUN/Creatinine Ratio 25.3 (8-20); Calcium 8.5 mg/dL (8.6-10.3); EGFR African American 74.9 (>60); EGFR Non-African American 58.2 (>60); Potassium 3.7 mmol/L (3.5-5.0)
[2017-08-13] MEDS: Heparin VIAL(*) 5000 UNITS/ML VIAL (FIVE THOUSAND) SUBCUT SCH (05:50)
[2017-08-13] MEDS: Insulin LISPRO* 1 UNITS UNIT SUBCUT SCH ×2 (08:41→12:05)
[2017-08-13] MEDS ORDERED: amLODIPine TAB* 5 MG PO SCH (09:00)
[2017-08-13] MEDS: Insulin GLARGINE(*) 1 UNITS UNIT SUBCUT SCH (09:16)
[2017-08-13] MEDS: CMCS: Anastrozole (NF) 1 MG TAB PO SCH (09:16)
[2017-08-13] MEDS: Multivitamins/Minerals TAB PO SCH (09:17)
[2017-08-13] MEDS: Cholecalciferol TAB* 1000 UNITS PO SCH (09:17)
[2017-08-13] MEDS: LORazepam TAB(*) 1 MG PO SCH (09:17)
[2017-08-13] MEDS: Gabapentin CAP(*) 300 MG PO SCH (09:17)
[2017-08-13] MEDS: Losartan TAB* 25 MG PO SCH (09:17)
[2017-08-13] MEDS: guaiFENesin ER TAB 600 MG PO SCH (09:18)
[2017-08-13] MEDS: Aspirin Low Dose CHEW TAB* 81 MG PO SCH (09:18)
[2017-08-13] MEDS: Sertraline* 25 MG TAB PO SCH (09:18)
[2017-08-13] MEDS: Atorvastatin* 10 MG TAB PO SCH (09:18)
--- NOTE | 2017-08-13 09:30 | PN ---
Subjective Date of Service: 08/13/17 Interval History: Pt is feeling well. She is anxious to go home. She denies any SOB. No pain. No issues with BMs. Family History: Unchanged from Admission Social History: Unchanged from Admission Past Medical History: Unchanged from Admission Objective Active Medications: Acetaminophen (Tylenol Tab*) 650 mg PO Q4H PRN PRN Reason: PAIN Amlodipine Besylate (Norvasc Tab*) 10 mg PO DAILY [facility] Last Admin: 08/13/17 09:17 Dose: 10 mg Anastrozole (Arimidex (Nf)) 1 mg PO DAILY [facility] Last Admin: 08/13/17 09:16 Dose: 1 mg Aspirin (Aspirin Low Dose Tab*) 81 mg PO DAILY [facility] Last Admin: 08/13/17 09:18 Dose: 81 mg Atorvastatin Calcium (Lipitor*) 10 mg PO DAILY [facility] Last Admin: 08/13/17 09:18 Dose: 10 mg Cholecalciferol (Vitamin D Tab*) 2,000 units PO DAILY [facility] Last Admin: 08/13/17 09:17 Dose: 2,000 units Dextrose (D50w Syringe 50 Ml*) 12.5 gm IV PUSH .FOR FS < 60 - SS PRN PRN Reason: FS < 60 Gabapentin (Neurontin Cap(*)) 300 mg PO TID [facility] Last Admin: 08/13/17 09:17 Dose: 300 mg Guaifenesin (Mucinex*) 600 mg PO BID [facility] Last Admin: 08/13/17 09:18 Dose: 600 mg Heparin Sodium (Porcine) (Heparin Vial(*)) 5,000 units SUBCUT Q8HR [facility] Last Admin: 08/13/17 05:50 Dose: Not Given Sodium Chloride (Ns 0.9% 1000 Ml*) 1,000 mls @ 100 mls/hr IV PER RATE [facility] Last Admin: 08/13/17 01:19 Dose: 100 mls/hr Insulin Glargine (Lantus(*)) 30 units SUBCUT QPM [facility] Last Admin: 08/12/17 17:23 Dose: 30 units Insulin Glargine (Lantus(*)) 50 units SUBCUT QAM [facility] Last Admin: 08/13/17 09:16 Dose: 50 units Insulin Human Lispro (Humalog*) 0 units SUBCUT ACHS [facility] PRN Reason: Protocol Last Admin: 08/13/17 08:41 Dose: Not Given Lorazepam (Ativan Tab(*)) 1 mg PO TID [facility] Last Admin: 08/13/17 09:17 Dose: 1 mg Losartan Potassium (Cozaar Tab*) 100 mg PO DAILY [facility] Last Admin: 08/13/17 09:17 Dose: 100 mg Multivitamins/Minerals (Theragran/Minerals Tab*) 1 tab PO DAILY [facility] Last Admin: 08/13/17 09:17 Dose: 1 tab Polyethylene Glycol/Electrolytes (Miralax*) 17 gm PO DAILY PRN PRN Reason: CONSTIPATION Sertraline HCl (Zoloft*) 25 mg PO DAILY [facility] Last Admin: 08/13/17 09:18 Dose: 25 mg Vital Signs 08/12/17 08/12/17 08/12/17 14:32 15:22 16:40 Temperature 97.6 F Pulse Rate 80 Respiratory 18 18 Rate Blood Pressure 151/45 (mmHg) O2 Sat by Pulse 99 Oximetry 08/12/17 08/12/17 08/12/17 19:40 20:00 21:18 Temperature 98.0 F Pulse Rate 86 Respiratory 24 16 16 Rate Blood Pressure 154/49 (mmHg) O2 Sat by Pulse 98 Oximetry 08/13/17 08/13/17 08/13/17 00:14 00:20 03:35 Temperature 98.4 F 98.0 F Pulse Rate 73 72 Respiratory 12 18 20 Rate Blood Pressure 132/58 138/49 (mmHg) O2 Sat by Pulse 100 99 Oximetry 08/13/17 09:17 Temperature Pulse Rate Respiratory 16 Rate Blood Pressure (mmHg) O2 Sat by Pulse Oximetry Oxygen Devices in Use Now: None Appearance: Elderly female sitting up in bed, NAD Eyes: No Scleral Icterus Ears/Nose/Mouth/Throat: Mucous Membranes Moist Respiratory: Symmetrical Chest Expansion and Respiratory Effort, Clear to Auscultation - diminished breath sounds in all lung hills Cardiovascular: NL Sounds; No Murmurs; No JVD, RRR, No Edema Abdominal: NL Sounds; No Tenderness; No Distention Extremities: No Clubbing, Cyanosis Skin: No Rash or Ulcers, No Nodules or Sclerosis Neurological: Alert and Oriented x 3 Result Diagrams: 08/12/17 06:57 08/13/17 04:37 Microbiology and Other Data: Microbiology 08/11/17 20:45 Influenza Types A,B Antigen (HUGO) - Final Nasopharyngeal Specimen received for Influenza A/B Molecular testing Assess/Plan/Problems-Billing Ms Daniels is an 87 yo F who has a h/o HTN, HLD, type II DM and a h/o breast cancer who presented to the ER with c/o cough and a difficult time bringing up sputum and was found to have significant hyponatremia. - Patient Problems (1) Hyponatremia Current Visit: Yes Status: Acute Code(s): E87.1 - HYPO-OSMOLALITY AND HYPONATREMIA SNOMED Code(s): 83865522 Comment: Na slowly improving. At this point will d/c pt home to get follow up labs on 08/15/17 to ensure her Na continues to improve. Encourage good oral intake. (2) Diabetes mellitus Current Visit: Yes Status: Chronic Code(s): E11.9 - TYPE 2 DIABETES MELLITUS WITHOUT COMPLICATIONS SNOMED Code(s): 62706474 Comment: Sugars have fluctuated quite a bit but her HbA1c is acceptable at 7.2%. I would rather her sugars run high than low at her advanced age. Continue lantus 50 units qAM and 30 units qPM. (3) CAD (coronary artery disease) Current Visit: Yes Status: Chronic Code(s): I25.10 - ATHSCL HEART DISEASE OF [place] CORONARY ARTERY W/O ANG PCTRS SNOMED Code(s): 35911773 Comment: Continue ASA and atorvastatin. (4) HLD (hyperlipidemia) Current Visit: Yes Status: Acute Code(s): E78.5 - HYPERLIPIDEMIA, UNSPECIFIED SNOMED Code(s): 25078687 Comment: Continue atorvastatin. (5) HTN (hypertension) Current Visit: Yes Status: Chronic Code(s): I10 - ESSENTIAL (PRIMARY) HYPERTENSION SNOMED Code(s): 01225700 Comment: Continue increased amlodipine and losartan. Monitor pressures as an outpatient. (6) Neuropathy Current Visit: Yes Status: Acute Code(s): G62.9 - POLYNEUROPATHY, UNSPECIFIED SNOMED Code(s): 426110405 Comment: Continue gabapentin. (7) DVT prophylaxis Current Visit: Yes Status: Acute Code(s): LNG6329 - SNOMED Code(s): 387042811 Comment: SQ heparin (8) DNR (do not resuscitate) Current Visit: Yes Status: Acute Status and Disposition: d/c home
--- NOTE | 2017-08-13 12:43 | DS ---
CC: Dr. Miles Georges MD * DISCHARGE SUMMARY: DATE OF ADMISSION: 08/11/17. DATE OF DISCHARGE: 08/13/17. PRIMARY CARE PROVIDER: Miles Georges MD. PRINCIPAL DIAGNOSES: 1. Hyponatremia - likely secondary to volume depletion and hydrochlorothiazide use. 2. Viral upper respiratory tract infection. SECONDARY DIAGNOSES: 1. Type 2 diabetes. 2. Hypertension. 3. Coronary artery disease. 4. Hyperlipidemia. 5. Diabetic neuropathy. DISCHARGE MEDICATIONS: 1. MiraLax 17 g p.o. daily p.r.n. constipation. 2. Tylenol 650 mg p.o. q. 4 hours p.r.n. pain. 3. Lantus 50 units subcutaneous q.a.m., 30 units subcutaneous q.p.m. 4. Zoloft 25 mg p.o. daily. 5. Gabapentin 300 mg p.o. t.i.d. 6. Ativan 1 mg p.o. b.i.d. 7. Multivitamin one tab p.o. daily. 8. Vitamin D 2000 units p.o. daily. 9. Losartan 100 mg p.o. daily. 10. Lipitor 10 mg p.o. daily. 11. Aspirin 81 mg p.o. daily. 12. Amlodipine 10 mg p.o. daily (new dose). Discontinued medications: Hydrochlorothiazide. HOSPITAL COURSE: Ms. Daniels is an 87-year-old female who for approximately one week prior to admission had complaints of cough and congestion. She ultimately presented to the emergency room on 08/11/17 with complaints of cough and a feeling of just cannot bring up sputum, as well as mild shortness of breath. She is diagnosed with a viral URI and management was felt to only needed to be symptomatic. However, she was found to be hyponatremic. The patient was admitted for management of hyponatremia. It was felt that this is likely secondary to volume depletion and hydrochlorothiazide use. The patient's hydrochlorothiazide has been discontinued and she received IV fluid hydration through the course of her hospitalization. The patient's sodium level improved from 122 to 128 on the day of discharge. The patient at this point is very interested to be discharged home. She is eating and drinking well. I feel the patient is stable for discharge home today, 08/13/17. She needs to have a followup BMP on 08/15/17 to ensure sodium level is at least stable, but hopefully improving. During the course of the hospitalization, the patient's blood pressure was noted to be moderately elevated. This was off her usual dose of hydrochlorothiazide. Because of this, her amlodipine dose is being increased to 10 mg p.o. daily. The patient will need to have her blood pressure checked as an outpatient to ensure it does not go too low. FOLLOWUP CONCERNS: The patient is being discharged home today, 08/13/17. She is to follow up with Dr. Georges in the next 4 to 7 days. She is to have a BMP on 08/15/17. ACTIVITY LEVEL: As tolerated. DIET: Diabetic heart healthy. CONDITION ON DISCHARGE: Stable. TIME SPENT: Thirty-five minutes was spent discharging this patient. [id number]/CPS #: [id number] MTDD
== END 2017-08-13 12:45 | disposition home or self-care (01) | DRG 641 ==
LOC: ED 14:21 → MED 19:12 → OBSVTOIN 08-12 13:41
PROVIDERS: ADMIT Hospitalist; ATTEND Hospitalist
DX: E87.1 Hypo-osmolality and hyponatremia (principal); E11.40 Type 2 diabetes mellitus with diabetic neuropathy, unspecified; C50.919 Malignant neoplasm of unspecified site of unspecified female breast; E86.9 Volume depletion, unspecified; I25.10 Atherosclerotic heart disease of native coronary artery without angina pectoris; I11.9 Hypertensive heart disease without heart failure; E78.5 Hyperlipidemia, unspecified; T50.2X5A Adverse effect of carbonic-anhydrase inhibitors, benzothiadiazides and other diuretics, initial encounter; X58.XXXA Exposure to other specified factors, initial encounter; J06.9 Acute upper respiratory infection, unspecified; Y92.009 Unspecified place in unspecified non-institutional (private) residence as the place of occurrence of the external cause; Z95.1 Presence of aortocoronary bypass graft; Z79.1 Long term (current) use of non-steroidal anti-inflammatories (NSAID); Z79.82 Long term (current) use of aspirin; Z79.4 Long term (current) use of insulin; Z79.899 Other long term (current) drug therapy; Z82.3 Family history of stroke; Z66 Do not resuscitate
CPT/HCPCS: 36415; 71010; 80048; 80053; 81003; 82550; 83036; 83880; 84484; 85025; 85027; 86140; 87502; 93005; A9270-GY; J1644

== ENCOUNTER → 2017-08-15 12:28 | Emergency (ER) | payer MEDICARE ==
[~2017-08-15 12:28] MED LIST: Gabapentin CAP(*) 300 MG PO ONE; Insulin GLARGINE(*) 1 UNITS UNIT SUBCUT ONE; NS 0.9% 1000 ML* 1,000 ML IV ONE
[2017-08-15 13:38] LABS: Hematocrit 33 % (35-47); Hemoglobin 11.3 g/dl (12.0-16.0); Mean Corpuscular HGB Conc 34 g/dl (31-36); Mean Corpuscular Hemoglobin 29 pg (27-31); Mean Corpuscular Volume 85 fL (80-97); Mean Platelet Volume 8 um3 (7.4-10.4); Red Blood Count 3.87 10^6/ul (4.0-5.4); Red Cell Distribution Width 13 % (10.5-15); White Blood Count 9.6 10^3/ul (3.5-10.8)
[2017-08-15 13:54] LABS: Albumin 3.7 g/dL (3.2-5.2); BUN/Creatinine Ratio 17.5 (8-20); C Reactive Protein 4.48 mg/L (< 5.00); Calcium 8.9 mg/dL (8.6-10.3); EGFR African American 69.5 (>60); EGFR Non-African American 54.1 (>60); Globulin 2.7 g/dL (2-4); Magnesium 2.1 mg/dL (1.9-2.7); Potassium 4.4 mmol/L (3.5-5.0); Total Bilirubin 0.3 mg/dL (0.2-1.0); Total Protein 6.4 g/dL (6.4-8.9)
[2017-08-15 13:55] LABS: Troponin I 0.02 ng/mL (<0.04)
[2017-08-15 14:30] LABS: TSH (Thyroid Stimulating Horm) 1.41 mcIU/mL (0.34-5.60)
--- NOTE | 2017-08-15 14:35 | RAD ---
Indication: Weakness. Vomiting. Cardiac disease. Comparison: February 06, 2017 CT. Technique: Sitting AP and lateral chest views. Report: No pulmonary infiltrate, focal pulmonary lesion, pleural effusion, pneumothorax. Median sternotomy wires and mediastinal vascular clips. Negative for cardiomegaly. Unremarkable central pulmonary vasculature and mediastinal contours accounting for leftward rotation. Negative for free air beneath the diaphragm. Thoracic degenerative spondylosis. IMPRESSION: No evidence for acute intrathoracic disease.
[2017-08-15 16:43] LABS: Urine Bacteria Absent (Absent); Urine Bilirubin Negative (Negative); Urine Glucose 1+(50 mg/dL) (Negative); Urine Nitrite Negative (Negative)
--- NOTE | 2017-08-16 00:33 | ED ---
Micki Douglas Gabriel, caleibed for Preet Beltran on 08/16/17 at 0029 . Progress - Progress Note Progress Note: This patient was signed out from Dr. Banegas, pending disposition, awaiting MHE. MHE was done deeming the patient as stable with depression. The patients condition is stable and will be discharged to home with Dx of depression. - Consult/PCP Time Called: 23:46 Course/Dx - Diagnoses Provider Diagnoses: Depression The documentation as recorded by the Micki owusu Gabriel accurately reflects the service I personally performed and the decisions made by Devin swan Emmanuel.
[2017-08-16 00:50] VITALS: BP 174/64
== END ==
LOC: ED 12:28
DX: F32.9 Major depressive disorder, single episode, unspecified (principal)
CPT/HCPCS: 36415; 71020; 80053; 81003; 81015; 82550; 83605; 83735; 83880; 84443; 84484; 85025; 86140; 93005; 96360; 99284; A9270-GY

== ENCOUNTER → 2017-08-16 12:38 | Emergency (ER) | payer MEDICARE ==
[~2017-08-16 12:38] MED LIST changes: -Gabapentin CAP(*) 300 MG PO ONE; -Insulin GLARGINE(*) 1 UNITS UNIT SUBCUT ONE; +Ketorolac INJ* 15 MG/ML 1 ML VIAL IV PUSH ONE; +LORazepam INJ* 2 MG/ML 1 ML VIAL IV PUSH ONE; +Morphine INJ* 2 MG/ML 1 ML CARPUJECT IV ONE; +Morphine INJ* 2 MG/ML 1 ML SYRINGE (TWO MG - NEW SYRINGE VERSION) IV ONE; +Morphine INJ* 2 MG/ML 1 ML SYRINGE (TWO MG - NEW SYRINGE VERSION) ONE; +Ondansetron INJ* 2 MG/ML VIAL IV ONE; +Ondansetron INJ* 2 MG/ML VIAL ONE; +Ondansetron ODT TAB* 4 MG PO ONE
[2017-08-16 14:15] LABS: Hematocrit 34 % (35-47); Hemoglobin 11.8 g/dl (12.0-16.0); Mean Corpuscular HGB Conc 35 g/dl (31-36); Mean Corpuscular Hemoglobin 30 pg (27-31); Mean Corpuscular Volume 86 fL (80-97); Mean Platelet Volume 8 um3 (7.4-10.4); Red Blood Count 3.98 10^6/ul (4.0-5.4); Red Cell Distribution Width 13 % (10.5-15); White Blood Count 10.5 10^3/ul (3.5-10.8)
[2017-08-16 14:22] LABS: Albumin 3.7 g/dL (3.2-5.2); BUN/Creatinine Ratio 17.1 (8-20); Calcium 9.3 mg/dL (8.6-10.3); EGFR African American 84.4 (>60); EGFR Non-African American 65.6 (>60); Globulin 2.9 g/dL (2-4); Potassium 4.1 mmol/L (3.5-5.0); Total Bilirubin 0.5 mg/dL (0.2-1.0); Total Protein 6.6 g/dL (6.4-8.9)
--- NOTE | 2017-08-16 14:56 | RAD ---
Indication: Headaches. CT of the brain was performed without IV contrast. Ventricular structures are midline. No midline shift is noted. The extraction spaces are unremarkable. There is no evidence of intracranial mass or hemorrhage. No other high or low density lesions are identified. Mastoid air cells and paranasal sinuses are unremarkable. IMPRESSION: No intracranial mass or hemorrhage is noted.
--- NOTE | 2017-08-16 15:06 | RAD ---
INDICATION: Occipital headache. COMPARISON: No relevant prior exams available on the [facility] PACS for comparison. TECHNIQUE: Multidetector CT images foramen magnum to lung apices without contrast. Multiplanar reformation. REPORT: Normal vertebral alignment accounting for exam positioning without spondylolisthesis or subluxation at any level. Negative for cervical vertebral body or posterior element fracture. Negative for paravertebral hematoma. Multilevel degenerative spondylosis and facet joint osteoarthritis. Multilevel mild uncinate process spurring. No compelling significant acquired spinal stenosis evident. IMPRESSION: Negative for traumatic cervical spine injury.
--- NOTE | 2017-08-16 16:53 | ED ---
Magan Douglas Benjamin, scribed for Deonte Fuentes MD on 08/16/17 at 1341 . Headache - HPI Summary HPI Summary: 87yo female c/o back and occipital headache. Pt comes from [place] with her symptoms. Pt also reports photophobia. Denies N/V. Denies SI. Pt feels dehydrated, but states drinking a few bottles of water this morning. - History Of Current Complaint Chief Complaint: EDGeneral Stated Complaint: GENERAL WEAKNESS Time Seen by Provider: 08/16/17 13:33 Hx Obtained From: Patient Onset/Duration: Sudden Onset, Started hours ago, Still Present Initially Headache Was: Moderate Currently Pain Is: Moderate Timing: Constant Location of Headache: Occipital Radiates to: back pain Associated Signs And Symptoms: Negative - Allergies/Home Medications Allergies/Adverse Reactions: Allergies Allergy/AdvReac Type Severity Reaction Status Date / Time No Known Allergies Allergy Verified 04/24/17 17:57 PMH/Surg Hx/FS Hx/Imm Hx Endocrine/Hematology History: Reports: Hx Diabetes Denies: Hx Thyroid Disease Cardiovascular History: Reports: Hx Hypertension, Other Cardiovascular Problems/ Disorders - DIABETIC Respiratory History: Denies: Hx Asthma, Hx Chronic Obstructive Pulmonary Disease (COPD) GI History: Denies: Hx Ulcer Sensory History: Reports: Hx Hearing Problem - pt hard of hearing, has no hearing aids Denies: Hx Contacts or Glasses, Hx Hearing Aid Opthamlomology History: Denies: Hx Contacts or Glasses - Cancer History Cancer Type, Location and Year: RECENT DX BREAST - Surgical History Surgery Procedure, Year, and Place: TRIPLE BYPASS Infectious Disease History: No Infectious Disease History: Reports: Hx Shingles Denies: Hx Clostridium Difficile, Hx Hepatitis, Hx Human Immunodeficiency Virus (HIV), Hx of Known/Suspected MRSA, Hx Tuberculosis, Hx Known/Suspected VRE , Hx Known/Suspected VRSA, History Other Infectious Disease, Traveled Outside the [place] in Last 30 Days - Family History Known Family History: Positive: Other - Positive CVA - Social History Alcohol Use: None Substance Use Type: Reports: None Smoking Status (MU): Never Smoked Tobacco Review of Systems Constitutional: Negative Eyes: Negative ENT: Negative Cardiovascular: Negative Respiratory: Negative Gastrointestinal: Negative Genitourinary: Negative Positive: no symptoms reported Positive: Myalgia - back pain Skin: Negative Positive: Headache Psychological: Normal All Other Systems Reviewed And Are Negative: Yes Physical Exam - Summary Physical Exam Summary: VITAL SIGNS: Reviewed. GENERAL: Patient is an elderly FEMALE who is lying somewhat uncomfortable in the stretcher. Patient is not in any acute respiratory distress. HEAD AND FACE: No signs of trauma. No ecchymosis, hematomas or skull depressions. No sinus tenderness. EYES: PERRLA, EOMI x 2, No injected conjunctiva, no nystagmus. EARS: Hearing grossly intact. Ear canals and tympanic membranes are within normal limits. MOUTH: Oropharynx within normal limits. NECK: Supple, trachea is midline, no adenopathy, no JVD, no carotid bruit, no c- spine tenderness, neck with full ROM. CHEST: Symmetric, no tenderness at palpation LUNGS: Clear to auscultation bilaterally. No wheezing or crackles. CVS: Regular rate and rhythm, S1 and S2 present, no murmurs or gallops appreciated. ABDOMEN: Soft, non-tender. No signs of distention. No rebound no guarding, and no masses palpated. Bowel sounds are normal. EXTREMITIES: FROM in all major joints, no edema, no cyanosis or clubbing. NEURO: Alert and oriented x 3. No acute neurological deficits. Speech is normal and follows commands. SKIN: Dry and warm Psych: Pt denies SI. Triage Information Reviewed: Yes Vital Signs On Initial Exam: Initial Vitals Temp Pulse Resp BP Pulse Ox 97.8 F 85 17 175/79 99 08/16/17 13:11 08/16/17 13:11 08/16/17 13:11 08/16/17 13:11 08/16/17 13:11 Vital Signs Reviewed: Yes Diagnostics - Vital Signs Vital Signs Temp Pulse Resp BP Pulse Ox 08/16/17 13:11 97.8 F 85 17 175/79 99 - Laboratory Result Diagrams: 08/16/17 14:00 08/16/17 14:00 Lab Statement: Any lab studies that have been ordered have been reviewed, and results considered in the medical decision making process. - CT CT Brain CT Interpretation: No Acute Changes CT Interpretation Completed By: Radiologist - ED physician has reviewed this radiology report and agrees. C-spine CT CT Interpretation: No Acute Changes CT Interpretation Completed By: Radiologist - ED physician has reviewed this radiology report and agrees. Re-Evaluation - Re-Evaluation First Eval Re-Evaluation Time: 15:58 Comment: Pt is still complaining of a MACK Headache Course/Dx - Course Course Of Treatment: 87yo female c/o back and occipital headache. Pt comes from [place] with her symptoms. Pt also reports photophobia. Denies N/V. Denies SI. Pt feels dehydrated, but states drinking a few bottles of water this morning. - Diagnoses Provider Diagnoses: Headache Discharge - Discharge Plan Condition: Stable Disposition: HOME Patient Education Materials: General Headache (ED) Referrals: Miles Georges MD [Primary Care Provider] - The documentation as recorded by the Magan owusu Benjamin accurately reflects the service I personally performed and the decisions made by me, Deonte Fuentes MD.
[2017-08-16 17:21] VITALS: BP 160/49
== END | disposition home or self-care (01) ==
LOC: ED 12:38
DX: R51 Headache (principal); E11.9 Type 2 diabetes mellitus without complications; I10 Essential (primary) hypertension; Z95.1 Presence of aortocoronary bypass graft
CPT/HCPCS: 36415; 70450; 72125; 80053; 85025; 85610; 85730; 96360; 96374; 96375; 96376; 99284; A9270-GY; J1885; J2060; J2270; J2405

== ENCOUNTER 2017-08-19 17:56 | Inpatient (IN) | payer MEDICARE ==
[2017-08-19] MEDS ORDERED: Morphine INJ* 4 MG/ML 1 ML CARPUJECT IV ONE (19:25)
[2017-08-19] MEDS ORDERED: Ondansetron INJ* 2 MG/ML VIAL IV ONE (19:25)
[2017-08-19] MEDS ORDERED: NS 0.9% 1000 ML* 1,000 ML IV SCH (19:30)
[2017-08-19 20:40] LABS: Hematocrit 34 % (35-47); Hemoglobin 11.9 g/dl (12.0-16.0); Mean Corpuscular HGB Conc 35 g/dl (31-36); Mean Corpuscular Hemoglobin 30 pg (27-31); Mean Corpuscular Volume 84 fL (80-97); Mean Platelet Volume 7 um3 (7.4-10.4); Red Cell Distribution Width 13 % (10.5-15); White Blood Count 9.3 10^3/ul (3.5-10.8)
[2017-08-19 20:54] LABS: ALT 18 U/L (7-52); AST 17 U/L (13-39); Albumin 3.9 g/dL (3.2-5.2); Alkaline Phosphatase 68 U/L (34-104); Anion Gap 7 mmol/L (2-11); BUN/Creatinine Ratio 15.1 (8-20); Blood Urea Nitrogen 13 mg/dL (6-24); C Reactive Protein < 1.00 mg/L (< 5.00); CO2 Carbon Dioxide 26 mmol/L (22-32); Calcium 8.9 mg/dL (8.6-10.3); Chloride 101 mmol/L (101-111); EGFR African American 79.9 (>60); EGFR Non-African American 62.1 (>60); Globulin 2.6 g/dL (2-4); Glucose 102 mg/dL (70-100); Potassium 3.8 mmol/L (3.5-5.0); Sodium 134 mmol/L (133-145); Total Protein 6.5 g/dL (6.4-8.9)
[2017-08-19] MEDS ORDERED: Iodixanol* (CONTRAST) 320 MG/ML 100 ML SDV IV ONE (21:08)
[2017-08-20] MEDS ORDERED: Ibuprofen TAB* 600 MG PO ONE (00:39)
[2017-08-20 00:48] LABS: Urine Bacteria 1+ (Absent); Urine Bilirubin Negative (Negative); Urine Glucose Negative (Negative); Urine Nitrite Negative (Negative)
--- NOTE | 2017-08-20 00:48 | ED ---
Sherri Douglas Emily, scribed for Ramses Jennings MD on 08/19/17 at 1923 . Complex/Multi-Sys Presentation - HPI Summary HPI Summary: This patient is an 87 year old F [facility] to [facility] with a chief complaint of neck and back of head pain that began today. 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 The patient rates the pain 5/10 in severity. Symptoms aggravated by nothing. Symptoms alleviated by nothing. Patient denies CP, weakness, SOB, and dyspnea. Pt reports having similar symptoms previously. - History Of Current Complaint Chief Complaint: EDNeckComplaint Time Seen by Provider: 08/19/17 19:12 Hx Obtained From: Patient Onset/Duration: Sudden Onset, Lasting Hours, Still Present Timing: Constant, Hours Severity Currently: Moderate Severity Initially: Severe Associated Signs And Symptoms: Positive: Other - Negative CP, weakness, SOB, and dyspnea - Allergies/Home Medications Allergies/Adverse Reactions: Allergies Allergy/AdvReac Type Severity Reaction Status Date / Time No Known Allergies Allergy Verified 04/24/17 17:57 PMH/Surg Hx/FS Hx/Imm Hx Previously Healthy: No Endocrine/Hematology History: Reports: Hx Diabetes Denies: Hx Thyroid Disease Cardiovascular History: Reports: Hx Hypertension, Other Cardiovascular Problems/ Disorders - DIABETIC Respiratory History: Denies: Hx Asthma, Hx Chronic Obstructive Pulmonary Disease (COPD) GI History: Denies: Hx Ulcer Sensory History: Reports: Hx Hearing Problem - pt hard of hearing, has no hearing aids Denies: Hx Contacts or Glasses, Hx Hearing Aid Opthamlomology History: Denies: Hx Contacts or Glasses - Cancer History Cancer Type, Location and Year: RECENT DX BREAST - Surgical History Surgery Procedure, Year, and Place: TRIPLE BYPASS Infectious Disease History: No Infectious Disease History: Reports: Hx Shingles Denies: Hx Clostridium Difficile, Hx Hepatitis, Hx Human Immunodeficiency Virus (HIV), Hx of Known/Suspected MRSA, Hx Tuberculosis, Hx Known/Suspected VRE , Hx Known/Suspected VRSA, History Other Infectious Disease, Traveled Outside the [place] in Last 30 Days - Family History Known Family History: Positive: Other - Positive CVA - Social History Occupation: Retired Lives: Alone Alcohol Use: None Substance Use Type: Reports: None Smoking Status (MU): Never Smoked Tobacco Review of Systems Negative: Chest Pain Positive: Other - Negative dyspnea. Negative: Shortness Of Breath Positive: Other - Positive back of head and neck pain Negative: Weakness All Other Systems Reviewed And Are Negative: Yes Physical Exam Triage Information Reviewed: Yes Vital Signs On Initial Exam: Initial Vitals Temp Pulse Resp BP Pulse Ox 99.6 F 81 20 156/49 98 08/19/17 18:08 08/19/17 18:08 08/19/17 18:08 08/19/17 18:08 08/19/17 18:08 Vital Signs Reviewed: Yes Appearance: Positive: Well-Appearing, No Pain Distress Skin: Positive: Warm, Skin Color Reflects Adequate Perfusion, Dry Head/Face: Positive: Normal Head/Face Inspection Eyes: Positive: EOMI, EFFIE ENT: Positive: Normal ENT inspection Neck: Positive: Supple, Nontender Respiratory/Lung Sounds: Positive: Clear to Auscultation, Breath Sounds Present Cardiovascular: Positive: RRR Abdomen Description: Positive: Nontender, Soft Bowel Sounds: Positive: Present Musculoskeletal: Positive: Normal, Strength/ROM Intact Neurological: Positive: Normal, Sensory/Motor Intact, Alert, Oriented to Person Place, Time Psychiatric: Positive: Affect/Mood Appropriate - [place] Coma Scale Coma Scale Total: 15 Diagnostics - Vital Signs Vital Signs Temp Pulse Resp BP Pulse Ox 08/19/17 19:00 73 143/45 97 08/19/17 18:30 77 142/57 97 08/19/17 18:10 80 97 08/19/17 18:08 99.6 F 81 20 156/49 98 - Laboratory Lab Results: Lab Results 08/19/17 08/19/17 08/19/17 Range/Units 20:30 20:30 20:30 WBC 9.3 (3.5-10.8) 10^3/ul RBC 4.00 (4.0-5.4) 10^6/ul Hgb 11.9 L (12.0-16.0) g/dl Hct 34 L (35-47) % MCV 84 (80-97) fL MCH 30 (27-31) pg MCHC 35 (31-36) g/dl RDW 13 (10.5-15) % Plt Count 295 (150-450) 10^3/ul MPV 7 L (7.4-10.4) um3 Neut % (Auto) 70.3 (38-83) % Lymph % (Auto) 20.5 L (25-47) % Tucker % (Auto) 8.5 (1-9) % Eos % (Auto) 0.3 (0-6) % Baso % (Auto) 0.4 (0-2) % Absolute Neuts (auto) 6.5 (1.5-7.7) 10^3/ul Absolute Lymphs (auto) 1.9 (1.0-4.8) 10^3/ul Absolute Monos (auto) 0.8 (0-0.8) 10^3/ul Absolute Eos (auto) 0 (0-0.6) 10^3/ul Absolute Basos (auto) 0 (0-0.2) 10^3/ul Absolute Nucleated RBC 0 10^3/ul Nucleated RBC % 0 INR (Anticoag Therapy) 1.05 H (0.77-1.02) APTT 28.3 (26.0-36.3) seconds Sodium 134 (133-145) mmol/L Potassium 3.8 (3.5-5.0) mmol/L Chloride 101 (101-111) mmol/L Carbon Dioxide 26 (22-32) mmol/L Anion Gap 7 (2-11) mmol/L BUN 13 (6-24) mg/dL Creatinine 0.86 (0.51-0.95) mg/dL Est GFR ( Amer) 79.9 (>60) Est GFR (Non-Af Amer) 62.1 (>60) BUN/Creatinine Ratio 15.1 (8-20) Glucose 102 H (70-100) mg/dL Calcium 8.9 (8.6-10.3) mg/dL Total Bilirubin 0.40 (0.2-1.0) mg/dL AST 17 (13-39) U/L ALT 18 (7-52) U/L Alkaline Phosphatase 68 (34-104) U/L C-Reactive Protein < 1.00 (< 5.00) mg/L Total Protein 6.5 (6.4-8.9) g/dL Albumin 3.9 (3.2-5.2) g/dL Globulin 2.6 (2-4) g/dL Albumin/Globulin Ratio 1.5 (1-3) Result Diagrams: 08/19/17 20:30 08/19/17 20:30 Lab Statement: Any lab studies that have been ordered have been reviewed, and results considered in the medical decision making process. - CT Head CTA CT Interpretation Completed By: Radiologist - Head CTA reveals, per radiologist , calcification in the bilateral carotid siphon with mild to moderate narrowing. The bilateral anterior cerebral arteries, middle cerebral arteries and posterior cerebral arteries are patent. The basilar artery is patent. No AV malformation or aneurysmal dilation is identified. No abnormally enhancing lesion is seen in the brain parenchyma. ED physician has reviewed this radiology report and agrees. Neck CTA CT Interpretation Completed By: Radiologist - Neck CTA reveals, per radiologist , calcification at right carotid bifurcation and the origin of the right internal carotid artery with 50-70% moderate stenosis by NASCET criteria. Left carotid palpation calcification with less than 30% stenosis. No evidence of carotid dissection. Calcification at the origin of the right vertebral artery with mild narrowing. The rest of the right vertebral artery and the entire left vertebral artery is patent without evidence of dissection. Multiple low-density cysts versus nodules in the bilateral thyroid lobes. Status post median sternotomy. ED physician has reviewed this radiology report and agrees. Re-Evaluation - Re-Evaluation First Eval Re-Evaluation Time: 20:05 Change: Unchanged Comment: Discussed plan of care with pt. Second Eval Re-Evaluation Time: 23:45 Comment: Discussed plan of care with pt. Complex Multi-Symp Course/Dx Course Of Treatment: ADMIT HOSPITALIST - Diagnoses Provider Diagnoses: Neck pain, Headache - Physician Notifications Discussed Care Of Patient With: Rema Teixeira Time Discussed With Above Provider: 00:13 Instructed by Provider To: Other - Consult with Dr. Teixeira (hospitalist) at 0013. She agrees to admit pt. Discharge - Discharge Plan Condition: Stable Disposition: ADMITTED TO [facility] Referrals: Miles Georges MD [Primary Care Provider] - The documentation as recorded by the Sherri owusu Emily accurately reflects the service I personally performed and the decisions made by me, Ramses Jennings MD.
[2017-08-20] MEDS ORDERED: Morphine INJ* 2 MG/ML 1 ML CARPUJECT IV ONE (01:41)
[2017-08-20] MEDS ORDERED: Al Hydrox/Mg Hydrox/Simet LIQ* 30 ML UDC PO PRN (01:41)
[2017-08-20] MEDS ORDERED: Acetaminophen TAB* 325 MG PO PRN (01:41)
[2017-08-20] MEDS ORDERED: Morphine INJ* 2 MG/ML 1 ML SYRINGE (TWO MG - NEW SYRINGE VERSION) IV PRN (01:41)
[2017-08-20] MEDS ORDERED: Docusate CAP* 100 MG PO PRN (01:41)
[2017-08-20] MEDS ORDERED: NS 0.9% 1000 ML* 1,000 ML IV SCH (01:45)
[2017-08-20] MEDS ORDERED: Dextrose 50% Syringe 50 ML* 25 GM/50 ML SYRINGE IV PUSH PRN ×2 (01:52→12:56)
[2017-08-20] MEDS ORDERED: Ketorolac INJ* 15 MG/ML 1 ML VIAL IV PUSH PRN (02:04)
[2017-08-20] MEDS ORDERED: oxyCODONE/Acetamin 5/325 MG* TAB ONE (02:11)
[2017-08-20] MEDS: oxyCODONE/Acetamin 5/325 MG* TAB PO PRN ×2 (02:12→11:26)
[2017-08-20] MEDS: Heparin VIAL(*) 5000 UNITS/ML VIAL (FIVE THOUSAND) SUBCUT SCH ×3 (04:17→20:46)
[2017-08-20] MEDS: clonazePAM TAB(*) 0.5 MG PO PRN ×2 (05:27→11:26)
--- NOTE | 2017-08-20 05:35 | HP ---
CC: Miles Georges MD HISTORY AND PHYSICAL: DATE OF ADMISSION: 08/20/17 TIME OF EVALUATION: 0100. PRIMARY CARE PHYSICIAN: Miles Georges MD CHIEF COMPLAINT: Headache. HISTORY OF PRESENT ILLNESS: This is an 87-year-old female with a past medical history of breast cancer, on hormonal therapy, and diabetic, who presents to the emergency room with complaints of headache. Note, this is her fourth visit to the emergency room in the past 5 days. The patient states she feels sick. She came to the emergency room on 08/15/17 with vomiting and headache. She came on 08/16/17 with generalized weakness and then she returned on 08/18/17 with nausea. She complains of neck pain and head pain. No falls. No vision changes. No numbness or weakness. No neuro deficit. She states she is sensitive to the light. She is not sensitive to sound. No history of migraines in the past. She saw her primary care physician yesterday and they did several dose adjustments, stopped her blood pressure medication, and her asthma and her anti-hyperlipidemia agents and changed several medications around in an attempt to improve her symptoms. The family states that for the past year, she always says she always feels sick. She does not feel well. Did notice some increase in confusion. Her last fall was 3 months ago, the headache and the neck pain she does complain about, but not to this extent. The patient keeps asking me for a pill to take her pain away. She denies any chest pain or shortness of breath. No nausea, vomiting, or diarrhea. No other pain or urinary symptoms, otherwise remaining review of systems is negative. In the emergency room, the patient has labs and imaging. She was given ibuprofen 600 mg, morphine 2 mg, and Zofran 4 mg and was referred to the hospitalist service for further evaluation. PAST MEDICAL HISTORY: 1. Type 2 diabetes. 2. Hypertension. 3. Hyperlipidemia. 4. Breast cancer, on treatment, Arimidex, followed by Dr. Mathias. 5. Coronary artery disease. 6. Diabetic neuropathy. 7. Constipation. 8. Depression. 9. History of diastolic heart failure. PAST SURGICAL HISTORY: 1. Coronary artery bypass graft. 2. Lap carlos. 3. Bilateral cataract extractions. MEDICATIONS: 1. Gabapentin 300 mg p.o. daily. 2. Amlodipine 10 mg daily. 3. Anastrozole 1 mg daily. 4. Aspirin is on hold. 5. Atorvastatin is on hold. 6. Hydrochlorothiazide is on hold. 7. Sertraline 25 mg p.o. daily. 8. Losartan is on hold. 9. Multivitamin daily. 10. Vitamin D3 2000 units daily. 11. Mucinex 600 mg p.o. b.i.d. 12. Lantus 50 units in the morning, 30 units every evening. 13. MiraLAX as needed for constipation. 14. Tylenol 650 mg every 4 hours as needed for pain. 15. Bisacodyl/Dulcolax rectal every 4 hours as needed constipation. 16. Zofran 4 mg every 8 hours as needed for nausea. 17. Clonazepam 0.5 mg 1 tab p.o. t.i.d. as needed for anxiety. ALLERGIES: No known drug allergies. FAMILY HISTORY: Mother from complications from stroke, at age 100 from old age. SOCIAL HISTORY: The patient lives at [facility]. She ambulates with a walker. No history of tobacco, alcohol, or illicit drug use. Her healthcare proxies are her sons, Espinoza and Jacob Daniels. Her son, Espinoza, is at the bedside. CODE STATUS: DNR/DNI. This was confirmed and MOLST form will be completed. REVIEW OF SYSTEMS: A 14-point review of systems reviewed, pertinent positives and negatives are mentioned in the HPI, otherwise negative. PHYSICAL EXAMINATION GENERAL: Some mild discomfort, holding her hand behind her head. Her son and her [id number] are at the bedside. VITAL SIGNS: Temp 99.6, pulse rate 69, respiratory rate 14, oxygen saturation 97% on room air, and blood pressure 166/49. HEENT: Head is normocephalic. Pupils are equal, reactive, and anicteric. Oropharynx: Mucous membranes are dry. No erythema or exudate. NECK: Supple. No lymphadenopathy. Tenderness at the posterior skull and some neck tenderness with range of motion. RESPIRATORY: Diminished breath sounds. No wheezing, rhonchi, or rales. CARDIAC: Regular rate and rhythm. Soft systolic murmur throughout. ABDOMEN: Soft, nontender, and nondistended. EXTREMITIES: Trace pretibial edema. +2 DPs. NEUROLOGIC: Alert and oriented x3. No gross focal neurologic deficits. DIAGNOSTIC STUDIES/LAB DATA: White count 9.3, hemoglobin 11.9, hematocrit 34, platelets 295. INR is 1.05. Sodium 134, potassium 3.8, chloride 101, bicarb 26 , BUN 13, creatinine 0.86, glucose 102. CRP is less than 1. Urine shows no ketones, +1 blood. Radiographic data: Head and neck CTA shows calcifications of bilateral carotid with [id number] narrowing. Bilateral anterior cerebral arteries, middle cerebral arteries, and posterior tibial arteries are patent. Basilar artery is patent. No AV malformation or aneurysmal dilatation. No enhancing lesions are seen in the brain parenchyma. Calcification in the right carotid bifurcation of the origin of the right internal carotid with 50% to 75% moderate stenosis. ASSESSMENT AND PLAN: This is an 87-year-old female with a past medical history of breast cancer, on hormonal therapy, and diabetes, who presents to the emergency room for the fourth time in the past few days with weakness, neck, and head pain. Weakness, head and neck pain. Assessment: The patient was also seen by her primary, who has been adjusting all of her medications accordingly. It is unclear the etiology behind her pain. It could be atypical migraine and could be degenerative changes in her neck. There is concern with a history of breast cancer, a venous sinus thrombosis though this seems to be neck pain as well contributing to this. The patient could be declining over on the assisted living as the family states that she always feels sick and has been complaining for the past year with similar symptoms. Plan: We will admit her to [address] [place] [address]. We will continue pain medication, IV fluids, and supportive care. If her pain continues, consider further evaluation with an MRV of the brain and Neurology consultation. We will also give her Zofran. We will also give her some Toradol as well. CHRONIC MEDICAL PROBLEMS: Diabetes. The patient's glucose is 104. She is on a hefty dose of Lantus. We will check her blood glucose now. Consider holding her evening Lantus dose and checking her sugars a.c. and putting her on lispro sliding scale. We will resume her remaining home medications as prescribed with the exception of anastrozole for her breast cancer. FEN: We will place the patient on diabetic diet with IV fluids in place. DVT prophylaxis: The patient scores high risk. We will place her on heparin subcu t.i.d. Code status: DNR/DNI. Disposition planning: We will place a Social Work consult for concern that she will need higher level of care from assisted living at [place]. PATIENT TIME: Greater than 60 minutes was spent doing the history and physical , more than half the time spent in direct patient contact. [id number]/CPS #: [id number] MTDD
[2017-08-20] MEDS ORDERED: Insulin LISPRO* 1 UNITS UNIT SUBCUT SCH ×2 (07:30→16:30)
[2017-08-20] MEDS: Ondansetron INJ* 2 MG/ML VIAL IV PRN (08:06)
[2017-08-20] MEDS: amLODIPine TAB* 5 MG PO SCH (08:51)
[2017-08-20] MEDS: Gabapentin CAP(*) 300 MG PO SCH (08:51)
[2017-08-20] MEDS: Aspirin EC Low Dose* 81 MG TAB.EC PO SCH (08:51)
[2017-08-20] MEDS: Sertraline* 25 MG TAB PO SCH (08:51)
[2017-08-20] MEDS: Senna TAB PO PRN (08:51)
[2017-08-20] MEDS ORDERED: amLODIPine TAB* 5 MG PO SCH (09:00)
--- NOTE | 2017-08-20 09:16 | RAD ---
CPT II: CPT II Codes: 3100F INDICATION: Occipital headache and posterior neck pain COMPARISON: CT of the brain August 16, 2017 TECHNIQUE: A CT angiogram of the head and neck was performed with 80 cc of Visipaque 320. Contiguous axial sections were obtained from the thoracic inlet through the sal[place] of [place]. Images were reconstructed in the sagittal, coronal planes and in a 3-D volume rendered format. The distal cervical internal carotid artery diameter is used as the denominater for stenosis measurement. CTA NECK: The common and internal carotid arteries are patent without hemodynamically significant stenosis. Right: Just below the carotid bifurcation the common carotid artery measures 7 mm in diameter. There is coarse atherosclerotic calcification at the carotid bulb narrowing the lumen to 3 mm yielding 57% degree narrowing. Left: Below the carotid bifurcation the common carotid artery measures 7 mm in diameter. There is coarse atherosclerotic calcification at the carotid bulb narrowing the lumen to 5 mm yielding to 29% degree narrowing. There is calcified atherosclerosis bilaterally of the vertebral arteries as they enter the foramen magnum. The right vertebral artery is diminutive relative to the left but patency appears to be maintained. CTA of the brain: The internal carotid, anterior and middle cerebral arteries appear are patent without high grade stenosis or occlusion. There is coarse atherosclerotic calcification of the petrous carotid arteries bilaterally. The vertebral, basilar and posterior cerebral arteries appear patent without high grade stenosis or occlusion. The left posterior communicating artery is absent causing the [place] of [place] to be incomplete. No focal luminal filling defect, aneurysm or vascular malformation is seen. NON-ARTERIAL FINDINGS: There are multiple low-attenuation foci in the thyroid gland the largest measuring 1 cm in the lateral millimeters in the right. IMPRESSION: 1. There is coarse atherosclerotic calcification of the bilateral carotid bulbs yielding approximately 57% degree narrowing on the right and 29% degree narrowing of the left. 2. Multifocal hypointensities in the bilateral thyroid similar to findings in the February 06, 2017 CT of the chest
[2017-08-20] MEDS ORDERED: Meclizine TAB* 12.5 MG PO ONE (11:21)
[2017-08-20] MEDS ORDERED: Meclizine TAB* 12.5 MG ONE (11:23)
--- NOTE | 2017-08-20 13:24 | PN ---
Subjective Date of Service: 08/20/17 Interval History: Currently no headache. Pt recalls some of her previous sx's but seems to have no c/o at this time. Objective Active Medications: Acetaminophen (Tylenol Tab*) 650 mg PO Q4H PRN PRN Reason: FEVER/PAIN Al Hydrox/Mg Hydrox/Simethicone (Maalox Plus*) 30 ml PO Q6H PRN PRN Reason: INDIGESTION Amlodipine Besylate (Norvasc Tab*) 10 mg PO DAILY [facility] Last Admin: 08/20/17 08:51 Dose: 10 mg Aspirin (Aspirin Ec Low Dose*) 81 mg PO DAILY [facility] Last Admin: 08/20/17 08:51 Dose: 81 mg Clonazepam (Klonopin Tab(*)) 0.5 mg PO TID PRN PRN Reason: ANXIETY Last Admin: 08/20/17 11:26 Dose: 0.5 mg Dextrose (D50w Syringe 50 Ml*) 12.5 gm IV PUSH .FOR FS < 60 - SS PRN PRN Reason: FS < 60 Dextrose (D50w Syringe 50 Ml*) 12.5 gm IV PUSH .FOR FS < 60 - SS PRN PRN Reason: FS < 60 Gabapentin (Neurontin Cap(*)) 300 mg PO DAILY [facility] Last Admin: 08/20/17 08:51 Dose: 300 mg Heparin Sodium (Porcine) (Heparin Vial(*)) 5,000 units SUBCUT Q8HR [facility] Last Admin: 08/20/17 04:17 Dose: 5,000 units Insulin Glargine (Lantus(*)) 40 units SUBCUT Q24H [facility] Insulin Human Lispro (Humalog*) 0 units SUBCUT ACHS [facility] PRN Reason: Protocol Meclizine HCl (Antivert Tab*) 25 mg PO TID [facility] Ondansetron HCl (Zofran Inj*) 4 mg IV Q4H PRN PRN Reason: NAUSEA/VOMITING Last Admin: 08/20/17 08:06 Dose: 4 mg Oxycodone/Acetaminophen (Percocet 5/325 Tab*) 1 tab PO Q4H PRN PRN Reason: Pain Last Admin: 08/20/17 11:26 Dose: 1 tab Senna (Senokot Tab*) 1 tab PO BID PRN PRN Reason: CONSTIPATION Last Admin: 08/20/17 08:51 Dose: 1 tab Sertraline HCl (Zoloft*) 25 mg PO DAILY [facility] Last Admin: 08/20/17 08:51 Dose: 25 mg Vital Signs 08/20/17 08/20/17 08/20/17 02:00 02:12 02:24 Temperature Pulse Rate 72 Respiratory 16 16 Rate Blood Pressure 162/56 (mmHg) O2 Sat by Pulse 97 Oximetry 08/20/17 08/20/17 08/20/17 03:56 05:25 05:27 Temperature 97.8 F 97.6 F Pulse Rate 78 79 Respiratory 16 16 16 Rate Blood Pressure 157/46 176/59 (mmHg) O2 Sat by Pulse 99 100 Oximetry 08/20/17 08/20/17 08/20/17 08:00 08:05 08:51 Temperature 97.6 F Pulse Rate 70 Respiratory 16 18 16 Rate Blood Pressure 182/56 (mmHg) O2 Sat by Pulse 99 Oximetry 08/20/17 08/20/17 08/20/17 10:49 11:03 11:26 Temperature 98.1 F Pulse Rate 86 Respiratory 20 18 Rate Blood Pressure 145/50 (mmHg) O2 Sat by Pulse 99 Oximetry Oxygen Devices in Use Now: None Appearance: Alert, sitting up in bed. Somewhat anxious, otherwise looks comfortable. Eyes: No Scleral Icterus Neck: NL Appearance and Movements; NL JVP, No Thyroid Enlargement, Masses Respiratory: Symmetrical Chest Expansion and Respiratory Effort, Clear to Auscultation, Clear to Percussion Cardiovascular: NL Sounds; No Murmurs; No JVD, RRR, No Edema, - Extremities: No Edema, No Clubbing, Cyanosis, - Skin: No Rash or Ulcers, No Nodules or Sclerosis, - Neurological: Alert and Oriented x 3, NL Sensation Result Diagrams: 08/19/17 20:30 08/19/17 20:30 Additional Lab and Data: Lab Results 08/19/17 08/19/17 08/19/17 Range/Units 20:30 20:30 20:30 WBC 9.3 (3.5-10.8) 10^3/ul RBC 4.00 (4.0-5.4) 10^6/ul Hgb 11.9 L (12.0-16.0) g/dl Hct 34 L (35-47) % MCV 84 (80-97) fL MCH 30 (27-31) pg MCHC 35 (31-36) g/dl RDW 13 (10.5-15) % Plt Count 295 (150-450) 10^3/ul MPV 7 L (7.4-10.4) um3 Neut % (Auto) 70.3 (38-83) % Lymph % (Auto) 20.5 L (25-47) % [place] % (Auto) 8.5 (1-9) % Eos % (Auto) 0.3 (0-6) % Baso % (Auto) 0.4 (0-2) % Absolute Neuts (auto) 6.5 (1.5-7.7) 10^3/ul Absolute Lymphs (auto) 1.9 (1.0-4.8) 10^3/ul Absolute Monos (auto) 0.8 (0-0.8) 10^3/ul Absolute Eos (auto) 0 (0-0.6) 10^3/ul Absolute Basos (auto) 0 (0-0.2) 10^3/ul Absolute Nucleated RBC 0 10^3/ul Nucleated RBC % 0 INR (Anticoag Therapy) 1.05 H (0.77-1.02) APTT 28.3 (26.0-36.3) seconds Sodium 134 (133-145) mmol/L Potassium 3.8 (3.5-5.0) mmol/L Chloride 101 (101-111) mmol/L Carbon Dioxide 26 (22-32) mmol/L Anion Gap 7 (2-11) mmol/L BUN 13 (6-24) mg/dL Creatinine 0.86 (0.51-0.95) mg/dL Est GFR ( Amer) 79.9 (>60) Est GFR (Non-Af Amer) 62.1 (>60) BUN/Creatinine Ratio 15.1 (8-20) Glucose 102 H (70-100) mg/dL Calcium 8.9 (8.6-10.3) mg/dL Total Bilirubin 0.40 (0.2-1.0) mg/dL AST 17 (13-39) U/L ALT 18 (7-52) U/L Alkaline Phosphatase 68 (34-104) U/L C-Reactive Protein < 1.00 (< 5.00) mg/L Total Protein 6.5 (6.4-8.9) g/dL Albumin 3.9 (3.2-5.2) g/dL Globulin 2.6 (2-4) g/dL Albumin/Globulin Ratio 1.5 (1-3) Assess/Plan/Problems-Billing Assessment: - Patient Problems (1) Headache Current Visit: Yes Status: Acute Code(s): R51 - HEADACHE SNOMED Code(s): 79458146 Comment: May have resolved 08/20. Continue PRN oxycodone/APAP (used one so far 08/20 13:30 hrs) (2) Diabetes mellitus Current Visit: No Status: Chronic Code(s): E11.9 - TYPE 2 DIABETES MELLITUS WITHOUT COMPLICATIONS SNOMED Code(s): 07679908 Comment: Start here with reduced dose of Lantus of 40 U q 24 hrs plus Lispro by SS. (3) Breast cancer Current Visit: No Status: Acute Code(s): C50.919 - MALIGNANT NEOPLASM OF UNSP SITE OF UNSPECIFIED FEMALE BREAST SNOMED Code(s): 016034898 Comment: Continue anastrozole. (4) Weakness Current Visit: No Status: Acute Code(s): R53.1 - WEAKNESS SNOMED Code(s): 49010944 Comment: Weakness, diminished memory/judgement, may need higher level of care. OT/PT ordered.
[2017-08-20] MEDS: Meclizine TAB* 12.5 MG PO SCH ×2 (13:48→20:45)
[2017-08-20] MEDS: Insulin LISPRO* 1 UNITS UNIT SUBCUT SCH ×3 (13:48→20:45)
[2017-08-20] MEDS: Insulin GLARGINE(*) 1 UNITS UNIT SUBCUT SCH (13:49)
[2017-08-20] MEDS: CMC: Anastrozole (NF) 1 MG TAB PO SCH (15:40)
[2017-08-20] MEDS: guaiFENesin ER TAB 600 MG PO SCH (20:45)
[2017-08-21] MEDS: clonazePAM TAB(*) 0.5 MG PO PRN ×3 (04:06→22:15)
[2017-08-21] MEDS: Heparin VIAL(*) 5000 UNITS/ML VIAL (FIVE THOUSAND) SUBCUT SCH ×3 (06:13→22:16)
[2017-08-21] MEDS: Insulin LISPRO* 1 UNITS UNIT SUBCUT SCH ×4 (08:09→22:16)
[2017-08-21] MEDS: Ondansetron INJ* 2 MG/ML VIAL IV PRN (09:08)
[2017-08-21] MEDS: Meclizine TAB* 12.5 MG PO SCH ×3 (09:23→22:15)
[2017-08-21] MEDS: Senna TAB PO PRN (09:24)
[2017-08-21] MEDS: Sertraline* 25 MG TAB PO SCH (09:24)
[2017-08-21] MEDS: guaiFENesin ER TAB 600 MG PO SCH ×2 (09:24→22:14)
[2017-08-21] MEDS: amLODIPine TAB* 5 MG PO SCH (09:25)
[2017-08-21] MEDS: Gabapentin CAP(*) 300 MG PO SCH (09:25)
[2017-08-21] MEDS: Aspirin EC Low Dose* 81 MG TAB.EC PO SCH (09:25)
[2017-08-21] MEDS: CMC: Anastrozole (NF) 1 MG TAB PO SCH (09:39)
[2017-08-21] MEDS ORDERED: Docusate CAP* 100 MG PO PRN (10:08)
[2017-08-21] MEDS: Polyethylene Glycol 3350* 17 GM PACKET PO PRN (10:40)
[2017-08-21] MEDS: oxyCODONE/Acetamin 5/325 MG* TAB PO PRN ×2 (10:40→16:36)
[2017-08-21] MEDS: Insulin GLARGINE(*) 1 UNITS UNIT SUBCUT SCH (12:02)
--- NOTE | 2017-08-21 18:41 | PN ---
Subjective Date of Service: 08/21/17 Interval History: Patient continues to complain of headache and general feeling of unwellness Objective Active Medications: Acetaminophen (Tylenol Tab*) 650 mg PO Q4H PRN PRN Reason: FEVER/PAIN Al Hydrox/Mg Hydrox/Simethicone (Maalox Plus*) 30 ml PO Q6H PRN PRN Reason: INDIGESTION Anastrozole (Arimidex (Nf)) 1 mg PO DAILY [facility] Last Admin: 08/21/17 09:39 Dose: 1 mg Aspirin (Aspirin Ec Low Dose*) 81 mg PO DAILY [facility] Last Admin: 08/21/17 09:25 Dose: 81 mg Clonazepam (Klonopin Tab(*)) 0.5 mg PO TID PRN PRN Reason: ANXIETY Last Admin: 08/21/17 12:05 Dose: 0.5 mg Dextrose (D50w Syringe 50 Ml*) 12.5 gm IV PUSH .FOR FS < 60 - SS PRN PRN Reason: FS < 60 Dextrose (D50w Syringe 50 Ml*) 12.5 gm IV PUSH .FOR FS < 60 - SS PRN PRN Reason: FS < 60 Docusate Sodium (Colace Cap*) 100 mg PO BID PRN PRN Reason: CONSTIPATION Last Admin: 08/21/17 10:40 Dose: 100 mg Gabapentin (Neurontin Cap(*)) 300 mg PO DAILY [facility] Last Admin: 08/21/17 09:25 Dose: 300 mg Guaifenesin (Mucinex*) 600 mg PO BID [facility] Last Admin: 08/21/17 09:24 Dose: 600 mg Heparin Sodium (Porcine) (Heparin Vial(*)) 5,000 units SUBCUT Q8HR [facility] Last Admin: 08/21/17 13:46 Dose: 5,000 units Insulin Glargine (Lantus(*)) 40 units SUBCUT Q24H [facility] Last Admin: 08/21/17 12:02 Dose: 40 units Insulin Human Lispro (Humalog*) 0 units SUBCUT ACHS [facility] PRN Reason: Protocol Last Admin: 08/21/17 16:39 Dose: Not Given Meclizine HCl (Antivert Tab*) 25 mg PO TID [facility] Last Admin: 08/21/17 13:46 Dose: 25 mg Ondansetron HCl (Zofran Inj*) 4 mg IV Q4H PRN PRN Reason: NAUSEA/VOMITING Last Admin: 08/21/17 09:08 Dose: 4 mg Oxycodone/Acetaminophen (Percocet 5/325 Tab*) 1 tab PO Q4H PRN PRN Reason: Pain Last Admin: 08/21/17 16:36 Dose: 1 tab Polyethylene Glycol/Electrolytes (Miralax*) 17 gm PO DAILY PRN PRN Reason: CONSTIPATION Last Admin: 08/21/17 10:40 Dose: 17 gm Senna (Senokot Tab*) 1 tab PO BID PRN PRN Reason: CONSTIPATION Last Admin: 08/21/17 09:24 Dose: 1 tab Sertraline HCl (Zoloft*) 25 mg PO DAILY [facility] Last Admin: 08/21/17 09:24 Dose: 25 mg Vital Signs 08/20/17 08/20/17 08/21/17 20:00 21:02 00:00 Temperature 97.6 F 97.9 F Pulse Rate 80 79 Respiratory 18 16 16 Rate Blood Pressure 150/53 153/50 (mmHg) O2 Sat by Pulse 97 99 Oximetry 08/21/17 08/21/17 08/21/17 03:24 04:06 07:45 Temperature 97.9 F 97.7 F Pulse Rate 85 85 Respiratory 16 20 19 Rate Blood Pressure 161/51 177/66 (mmHg) O2 Sat by Pulse 100 100 Oximetry 08/21/17 08/21/17 08/21/17 08:00 08:08 09:25 Temperature Pulse Rate Respiratory 18 18 20 Rate Blood Pressure (mmHg) O2 Sat by Pulse Oximetry 08/21/17 08/21/17 08/21/17 10:40 12:00 12:05 Temperature 98.2 F Pulse Rate 79 Respiratory 20 18 16 Rate Blood Pressure 152/58 (mmHg) O2 Sat by Pulse 99 Oximetry 08/21/17 08/21/17 08/21/17 12:07 13:11 13:57 Temperature Pulse Rate Respiratory 16 16 16 Rate Blood Pressure (mmHg) O2 Sat by Pulse Oximetry 08/21/17 08/21/17 16:02 16:36 Temperature 97.9 F Pulse Rate 91 Respiratory 16 16 Rate Blood Pressure 150/51 (mmHg) O2 Sat by Pulse 98 Oximetry Oxygen Devices in Use Now: None Appearance: Elderly woman lying in bed in NAD Eyes: No Scleral Icterus Ears/Nose/Mouth/Throat: Clear Oropharnyx Neck: No Thyroid Enlargement, Masses Respiratory: Clear to Auscultation Cardiovascular: - - S1S2 terry Abdominal: NL Sounds; No Tenderness; No Distention, No Hepatosplenomegaly Lymphatic: No Cervical Adenopathy Extremities: No Clubbing, Cyanosis Skin: No Rash or Ulcers Neurological: Alert and Oriented x 3 Result Diagrams: 08/19/17 20:30 08/19/17 20:30 Additional Lab and Data: Lab Results 08/19/17 08/19/17 08/19/17 Range/Units 20:30 20:30 20:30 WBC 9.3 (3.5-10.8) 10^3/ul RBC 4.00 (4.0-5.4) 10^6/ul Hgb 11.9 L (12.0-16.0) g/dl Hct 34 L (35-47) % MCV 84 (80-97) fL MCH 30 (27-31) pg MCHC 35 (31-36) g/dl RDW 13 (10.5-15) % Plt Count 295 (150-450) 10^3/ul MPV 7 L (7.4-10.4) um3 Neut % (Auto) 70.3 (38-83) % Lymph % (Auto) 20.5 L (25-47) % [place] % (Auto) 8.5 (1-9) % Eos % (Auto) 0.3 (0-6) % Baso % (Auto) 0.4 (0-2) % Absolute Neuts (auto) 6.5 (1.5-7.7) 10^3/ul Absolute Lymphs (auto) 1.9 (1.0-4.8) 10^3/ul Absolute Monos (auto) 0.8 (0-0.8) 10^3/ul Absolute Eos (auto) 0 (0-0.6) 10^3/ul Absolute Basos (auto) 0 (0-0.2) 10^3/ul Absolute Nucleated RBC 0 10^3/ul Nucleated RBC % 0 INR (Anticoag Therapy) 1.05 H (0.77-1.02) APTT 28.3 (26.0-36.3) seconds Sodium 134 (133-145) mmol/L Potassium 3.8 (3.5-5.0) mmol/L Chloride 101 (101-111) mmol/L Carbon Dioxide 26 (22-32) mmol/L Anion Gap 7 (2-11) mmol/L BUN 13 (6-24) mg/dL Creatinine 0.86 (0.51-0.95) mg/dL Est GFR ( Amer) 79.9 (>60) Est GFR (Non-Af Amer) 62.1 (>60) BUN/Creatinine Ratio 15.1 (8-20) Glucose 102 H (70-100) mg/dL Calcium 8.9 (8.6-10.3) mg/dL Total Bilirubin 0.40 (0.2-1.0) mg/dL AST 17 (13-39) U/L ALT 18 (7-52) U/L Alkaline Phosphatase 68 (34-104) U/L C-Reactive Protein < 1.00 (< 5.00) mg/L Total Protein 6.5 (6.4-8.9) g/dL Albumin 3.9 (3.2-5.2) g/dL Globulin 2.6 (2-4) g/dL Albumin/Globulin Ratio 1.5 (1-3) Assess/Plan/Problems-Billing Assessment: - Patient Problems (1) Headache Current Visit: Yes Status: Acute Code(s): R51 - HEADACHE SNOMED Code(s): 69015193 Comment: Still with headache. Unclear etiology but I suspect may be a manifestation of depression. Hold Norvasc as headache can be a side effect. (2) Breast cancer Current Visit: No Status: Acute Code(s): C50.919 - MALIGNANT NEOPLASM OF UNSP SITE OF UNSPECIFIED FEMALE BREAST SNOMED Code(s): 072770422 Comment: Stable. Continue anastrozole. (3) Weakness Current Visit: No Status: Acute Code(s): R53.1 - WEAKNESS SNOMED Code(s): 04339143 Comment: Weakness, diminished memory/judgement. Again unclear etiology but I suspect Depression. May increase sertraline (4) Depression Current Visit: Yes Status: Acute Code(s): F32.9 - MAJOR DEPRESSIVE DISORDER , SINGLE EPISODE, UNSPECIFIED SNOMED Code(s): 36086339 Comment: See above. Patient had to be moved up here from her home and has lost her independence. All of her friends have recently too. (5) Diabetes mellitus Current Visit: No Status: Chronic Code(s): E11.9 - TYPE 2 DIABETES MELLITUS WITHOUT COMPLICATIONS SNOMED Code(s): 89686524 Comment: Continue Lantus of 40 U q 24 hrs plus Lispro by SS. (6) DVT prophylaxis Current Visit: No Status: Acute Code(s): VPO5735 - SNOMED Code(s): 196888391 Comment: SQ heparin (7) DNR (do not resuscitate) Current Visit: No Status: Acute
[2017-08-22] MEDS: Ondansetron INJ* 2 MG/ML VIAL IV PRN (05:28)
[2017-08-22] MEDS: Heparin VIAL(*) 5000 UNITS/ML VIAL (FIVE THOUSAND) SUBCUT SCH ×3 (05:28→21:26)
[2017-08-22] MEDS: Insulin LISPRO* 1 UNITS UNIT SUBCUT SCH ×4 (09:15→21:26)
[2017-08-22] MEDS: guaiFENesin ER TAB 600 MG PO SCH ×2 (09:26→21:26)
[2017-08-22] MEDS: Gabapentin CAP(*) 300 MG PO SCH (09:26)
[2017-08-22] MEDS: CMC: Anastrozole (NF) 1 MG TAB PO SCH (09:26)
[2017-08-22] MEDS: Aspirin EC Low Dose* 81 MG TAB.EC PO SCH (09:26)
[2017-08-22] MEDS: Sertraline* 25 MG TAB PO SCH (09:26)
[2017-08-22] MEDS: Meclizine TAB* 12.5 MG PO SCH ×3 (09:26→21:26)
[2017-08-22] MEDS: Insulin GLARGINE(*) 1 UNITS UNIT SUBCUT SCH (12:55)
[2017-08-22] MEDS: oxyCODONE/Acetamin 5/325 MG* TAB PO PRN (14:30)
--- NOTE | 2017-08-22 15:41 | PN ---
Subjective Date of Service: 08/22/17 Interval History: Patient says headache is better but just doesn't feel good. She cannot give me any further details. Objective Active Medications: Acetaminophen (Tylenol Tab*) 650 mg PO Q4H PRN PRN Reason: FEVER/PAIN Al Hydrox/Mg Hydrox/Simethicone (Maalox Plus*) 30 ml PO Q6H PRN PRN Reason: INDIGESTION Anastrozole (Arimidex (Nf)) 1 mg PO DAILY [facility] Last Admin: 08/22/17 09:26 Dose: 1 mg Aspirin (Aspirin Ec Low Dose*) 81 mg PO DAILY [facility] Last Admin: 08/22/17 09:26 Dose: 81 mg Clonazepam (Klonopin Tab(*)) 0.5 mg PO TID PRN PRN Reason: ANXIETY Last Admin: 08/21/17 22:15 Dose: 0.5 mg Dextrose (D50w Syringe 50 Ml*) 12.5 gm IV PUSH .FOR FS < 60 - SS PRN PRN Reason: FS < 60 Dextrose (D50w Syringe 50 Ml*) 12.5 gm IV PUSH .FOR FS < 60 - SS PRN PRN Reason: FS < 60 Docusate Sodium (Colace Cap*) 100 mg PO BID PRN PRN Reason: CONSTIPATION Last Admin: 08/21/17 10:40 Dose: 100 mg Gabapentin (Neurontin Cap(*)) 300 mg PO DAILY [facility] Last Admin: 08/22/17 09:26 Dose: 300 mg Guaifenesin (Mucinex*) 600 mg PO BID [facility] Last Admin: 08/22/17 09:26 Dose: 600 mg Heparin Sodium (Porcine) (Heparin Vial(*)) 5,000 units SUBCUT Q8HR [facility] Last Admin: 08/22/17 15:03 Dose: Not Given Insulin Glargine (Lantus(*)) 40 units SUBCUT Q24H [facility] Last Admin: 08/22/17 12:55 Dose: 40 units Insulin Human Lispro (Humalog*) 0 units SUBCUT ACHS [facility] PRN Reason: Protocol Last Admin: 08/22/17 12:55 Dose: 2 units Meclizine HCl (Antivert Tab*) 25 mg PO TID [facility] Last Admin: 08/22/17 14:30 Dose: 25 mg Ondansetron HCl (Zofran Inj*) 4 mg IV Q4H PRN PRN Reason: NAUSEA/VOMITING Last Admin: 08/22/17 05:28 Dose: 4 mg Oxycodone/Acetaminophen (Percocet 5/325 Tab*) 1 tab PO Q4H PRN PRN Reason: Pain Last Admin: 08/22/17 14:30 Dose: 1 tab Polyethylene Glycol/Electrolytes (Miralax*) 17 gm PO DAILY PRN PRN Reason: CONSTIPATION Last Admin: 08/21/17 10:40 Dose: 17 gm Senna (Senokot Tab*) 1 tab PO BID PRN PRN Reason: CONSTIPATION Last Admin: 08/21/17 09:24 Dose: 1 tab Sertraline HCl (Zoloft*) 25 mg PO DAILY [facility] Last Admin: 08/22/17 09:26 Dose: 25 mg Vital Signs - 8 hr 08/22/17 08/22/17 08/22/17 08:00 09:26 11:22 Temperature 98.4 F Pulse Rate 85 Respiratory 16 18 16 Rate Blood Pressure 146/49 (mmHg) O2 Sat by Pulse 96 Oximetry 08/22/17 08/22/17 12:04 14:30 Temperature Pulse Rate Respiratory 16 20 Rate Blood Pressure (mmHg) O2 Sat by Pulse Oximetry Oxygen Devices in Use Now: None Appearance: Elderly woman lying in bed in NAD Eyes: PERRLA Ears/Nose/Mouth/Throat: Mucous Membranes Moist Neck: No Thyroid Enlargement, Masses Respiratory: Clear to Auscultation Cardiovascular: - - S1S2 terry Abdominal: NL Sounds; No Tenderness; No Distention, No Hepatosplenomegaly Lymphatic: No Cervical Adenopathy Extremities: No Edema Skin: No Rash or Ulcers Neurological: Alert and Oriented x 3 Result Diagrams: 08/19/17 20:30 08/19/17 20:30 Additional Lab and Data: Lab Results 08/19/17 08/19/17 08/19/17 Range/Units 20:30 20:30 20:30 WBC 9.3 (3.5-10.8) 10^3/ul RBC 4.00 (4.0-5.4) 10^6/ul Hgb 11.9 L (12.0-16.0) g/dl Hct 34 L (35-47) % MCV 84 (80-97) fL MCH 30 (27-31) pg MCHC 35 (31-36) g/dl RDW 13 (10.5-15) % Plt Count 295 (150-450) 10^3/ul MPV 7 L (7.4-10.4) um3 Neut % (Auto) 70.3 (38-83) % Lymph % (Auto) 20.5 L (25-47) % [place] % (Auto) 8.5 (1-9) % Eos % (Auto) 0.3 (0-6) % Baso % (Auto) 0.4 (0-2) % Absolute Neuts (auto) 6.5 (1.5-7.7) 10^3/ul Absolute Lymphs (auto) 1.9 (1.0-4.8) 10^3/ul Absolute Monos (auto) 0.8 (0-0.8) 10^3/ul Absolute Eos (auto) 0 (0-0.6) 10^3/ul Absolute Basos (auto) 0 (0-0.2) 10^3/ul Absolute Nucleated RBC 0 10^3/ul Nucleated RBC % 0 INR (Anticoag Therapy) 1.05 H (0.77-1.02) APTT 28.3 (26.0-36.3) seconds Sodium 134 (133-145) mmol/L Potassium 3.8 (3.5-5.0) mmol/L Chloride 101 (101-111) mmol/L Carbon Dioxide 26 (22-32) mmol/L Anion Gap 7 (2-11) mmol/L BUN 13 (6-24) mg/dL Creatinine 0.86 (0.51-0.95) mg/dL Est GFR ( Amer) 79.9 (>60) Est GFR (Non-Af Amer) 62.1 (>60) BUN/Creatinine Ratio 15.1 (8-20) Glucose 102 H (70-100) mg/dL Calcium 8.9 (8.6-10.3) mg/dL Total Bilirubin 0.40 (0.2-1.0) mg/dL AST 17 (13-39) U/L ALT 18 (7-52) U/L Alkaline Phosphatase 68 (34-104) U/L C-Reactive Protein < 1.00 (< 5.00) mg/L Total Protein 6.5 (6.4-8.9) g/dL Albumin 3.9 (3.2-5.2) g/dL Globulin 2.6 (2-4) g/dL Albumin/Globulin Ratio 1.5 (1-3) Assess/Plan/Problems-Billing Assessment: - Patient Problems (1) Headache Current Visit: Yes Status: Acute Code(s): R51 - HEADACHE SNOMED Code(s): 75937472 Comment: Headache resolved.Still unclear etiology but I suspect may be a manifestation of depression. Norvasc was held because of depression. (2) Breast cancer Current Visit: No Status: Acute Code(s): C50.919 - MALIGNANT NEOPLASM OF UNSP SITE OF UNSPECIFIED FEMALE BREAST SNOMED Code(s): 929002903 Comment: Stable. Continue anastrozole. (3) Weakness Current Visit: No Status: Acute Code(s): R53.1 - WEAKNESS SNOMED Code(s): 73423698 Comment: Weakness.Again unclear etiology but I suspect Depression.Will increase sertraline today. (4) Depression Current Visit: Yes Status: Acute Code(s): F32.9 - MAJOR DEPRESSIVE DISORDER , SINGLE EPISODE, UNSPECIFIED SNOMED Code(s): 65778412 Comment: See above. Patient had to be moved up here from her home and has lost her independence. All of her friends have recently too. (5) Diabetes mellitus Current Visit: No Status: Chronic Code(s): E11.9 - TYPE 2 DIABETES MELLITUS WITHOUT COMPLICATIONS SNOMED Code(s): 66157828 Comment: Continue Lantus of 40 U q 24 hrs plus Lispro by SS. (6) DVT prophylaxis Current Visit: No Status: Acute Code(s): LAF3460 - SNOMED Code(s): 950000351 Comment: SQ heparin (7) DNR (do not resuscitate) Current Visit: No Status: Acute
[2017-08-22] MEDS: clonazePAM TAB(*) 0.5 MG PO PRN (21:26)
[2017-08-23] MEDS: Ondansetron INJ* 2 MG/ML VIAL IV PRN (01:25)
[2017-08-23] MEDS: oxyCODONE/Acetamin 5/325 MG* TAB PO PRN ×4 (05:27→21:13)
[2017-08-23] MEDS: Heparin VIAL(*) 5000 UNITS/ML VIAL (FIVE THOUSAND) SUBCUT SCH ×4 (05:30→21:22)
[2017-08-23] MEDS: Polyethylene Glycol 3350* 17 GM PACKET PO PRN (05:39)
[2017-08-23] MEDS: Insulin LISPRO* 1 UNITS UNIT SUBCUT SCH ×4 (08:07→21:15)
[2017-08-23] MEDS: Gabapentin CAP(*) 300 MG PO SCH (09:42)
[2017-08-23] MEDS: Aspirin EC Low Dose* 81 MG TAB.EC PO SCH (09:42)
[2017-08-23] MEDS: guaiFENesin ER TAB 600 MG PO SCH ×2 (09:43→21:12)
[2017-08-23] MEDS: Meclizine TAB* 12.5 MG PO SCH ×3 (09:43→21:13)
[2017-08-23] MEDS: Sertraline* 50 MG TAB PO SCH (09:43)
[2017-08-23] MEDS: CMC: Anastrozole (NF) 1 MG TAB PO SCH (09:43)
--- NOTE | 2017-08-23 11:21 | DS ---
CC: Dr. Miles Georges * DATE OF ADMISSION: 08/20/2017. DATE OF DISCHARGE: 08/23/2017. PRIMARY CARE PHYSICIAN: Dr. Miles Georges. ATTENDING PHYSICIAN WHILE IN THE HOSPITAL: Dr. Jahaira Phelan * (dictated by LADARIUS Ozuna). PRIMARY DISCHARGE DIAGNOSES: Headache, weakness, decreased functional capacity , depression. SECONDARY DIAGNOSES: Diabetes mellitus with neuropathy, hypertension, hyperlipidemia, breast cancer on treatment with Arimidex, coronary artery disease, constipation, diastolic heart failure. STUDIES DONE WHILE IN THE HOSPITAL: Head CTA from 08/19/2017 read as coarse atherosclerotic calcification of the bilateral carotid bulbs yielding approximately 57 percent degree narrowing on the right and 29 percent degree narrowing of the left. Multifocal hypointensities in the bilateral thyroid similar to findings on the February 06, 2017 CT of the chest. MEDICATIONS AT DISCHARGE: 1. Vitamin D 2000 units p.o. daily. 2. Losartan 100 mg p.o. daily. 3. Anastrozole 1 mg p.o. daily. 4. Tylenol 650 mg p.o. q.4 hours. 5. Maalox 30 ml p.o. q.6 hours. 6. Aspirin 81 mg p.o. daily. 7. Klonopin 0.5 mg p.o. t.i.d. 8. Docusate 100 mg p.o. b.i.d. 9. Gabapentin 300 mg p.o. daily. 10. Guaifenesin 1,200 mg p.o. b.i.d. 11. Insulin Glargine 40 units subcutaneous q.24 hours. 12. Insulin Lispro ACHS per protocol. 13. Meclizine 25 mg p.o. t.i.d. 14. Zofran ODT 4 mg p.o. q.6 hours as needed. 15. Percocet 5/325 one tab p.o. q.4 hours as needed. 16. MiraLax 17 gm p.o. daily as needed. 17. Senna one tab p.o. b.i.d. as needed. 18. Sertraline 50 mg p.o. daily. New medications at discharge: Sertraline, Senna, Percocet, Zofran, Meclizine. Medications discontinued at discharge: Sertraline 25 mg p.o. daily, Amlodipine 10 mg p.o. daily, Dulcolax 10 mg p.r. q.4 hours if needed, insulin Glargine 30 units subcutaneous q.p.m. and 50 units p.o. subcutaneous q.a.m. HOSPITAL COURSE: This is a brief summary of the patient's presentation. For more details, please see the history and physical from Dr. Rema Teixeira on 11/2016. In brief, the patient is an 87-year-old female with a past medical history significant for the above who presented to the emergency room for the fourth time in four days with vomiting and head-ache with neck pain. No neurological deficits with photophobia. The patient also complained of just general malaise. The patient had no other symptoms. The patient was admitted, given ibuprofen, Morphine and Zofran. The patient had a CTA which was read as above. The patient was started on sliding scale insulin and her Lantus was halved while she was in the hospital. The patient's headache went away on the first day of discharge. The patient was seen by Physical Therapy and she was near baseline, but had continued functional deficits for which she would benefit from a prison. The family was in agreement. The patient had no other complaints over the course of her hospitalization beside not feeling well , having the feeling of mucus being stuck in her throat which responded to Guaifenesin. The patient was previously admitted for this complaint last month and neck pain which responds to Percocet. 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 The patient and her family were agreeable to discharge to [facility] for rehab on 08/23/2017. PHYSICAL EXAMINATION ON THE DAY OF DISCHARGE: General: The patient is an 87- year- old female who appears her stated age and is sitting comfortably in bed in no acute distress. Vital Signs: At the time of discharge, temperature 98.1 , pulse rate 74, respiratory rate 16, oxygen saturation 98 percent on room air, blood pressure 145/58. HEENT: Head normocephalic, atraumatic. Sclerae anicteric. No conjunctival injection. No tenderness over the sinuses. No nasal drainage. Nasal mucosa pink and moist. Oral mucosa moist. No pharyngeal erythema or postnasal drip. Neck: Supple, tender to palpation over the posterior aspect on the left. Pain with any manipulation of the neck. No carotid bruit. Cardiac: Regular rate and rhythm. No clicks, murmurs, gallops or rubs. Pulse is 2+ in bilateral dorsalis pedis, posterior tibialis, and radial areas. Respiratory: Clear to auscultation bilaterally. No wheezes, rales or rhonchi. Good air exchange bilaterally. Abdomen: Obese, nontender, nondistended. Bowel sounds are present. Normoactive in all four quadrants. No hepatosplenomegaly. No abdominal bruits auscultated. Genitourinary: No CVA tenderness, no suprapubic tenderness. Skin: Clean, dry, intact. No rash. Neuro: Alert and oriented times two. Cranial nerves II through XII grossly intact. No focal deficits. Psychiatric: The patient is anxious and constantly worrying about her general feeling of malaise. LABORATORY DATA: Of note from hospitalization: Hemoglobin 11.9; INR 1.05; urinalysis with bacteria, but no nitrate or leukocyte esterase; hemoglobin A1c of 6.9. DISCHARGE PLAN: The patient will be discharged to [facility] for rehab and assistance with her decreased functional capacity. 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 The patient will be continued on the decreased dose of her Lantus and sliding scale insulin. The patient should follow-up with her primary care provider within one week to assess the efficacy of this treatment regimen and increase her basal insulin as indicated. ACTIVITY: The patient should have activity as tolerated, working with PT and OT to restore her functional capacity. DIET: The patient should have a consistent carbohydrate diet. Approximately 60 minutes were spent on this discharge, 30 of which were spent face- to-face with the patient obtaining history and physical and discussing treatment plan. LADARIUS OZUNA [id number]/[facility] #: [id number] DORI
[2017-08-23] MEDS: Insulin GLARGINE(*) 1 UNITS UNIT SUBCUT SCH (13:11)
[2017-08-23] MEDS ORDERED: Levalbuterol 0.63MG/3ML NEB* UNIT OF USE INH PRN (13:44)
[2017-08-23] MEDS ORDERED: Meclizine TAB* 12.5 MG PO PRN (17:23)
[2017-08-23] MEDS ORDERED: Ondansetron ODT TAB* 4 MG SL PRN (17:41)
[2017-08-23] MEDS: clonazePAM TAB(*) 0.5 MG PO PRN (23:43)
[2017-08-24] MEDS: Heparin VIAL(*) 5000 UNITS/ML VIAL (FIVE THOUSAND) SUBCUT SCH (05:27)
[2017-08-24] MEDS ORDERED: guaiFENesin ER TAB 600 MG PO SCH (08:03)
--- NOTE | 2017-08-24 08:09 | PN ---
Subjective Date of Service: 08/24/17 Interval History: Patient complains of general malaise and post nasal drip. Patient is weepy during this interaction. Patient offers no other specific complaints such as headache, neck pain, CP, SOB, or other pain. Family History: Unchanged from Admission Social History: Unchanged from Admission Past Medical History: Findings - Patient has a small open area on R buttock that is treated at the wound clinic. Objective Active Medications: Acetaminophen (Tylenol Tab*) 650 mg PO Q4H PRN PRN Reason: FEVER/PAIN Last Admin: 08/23/17 13:12 Dose: 650 mg Al Hydrox/Mg Hydrox/Simethicone (Maalox Plus*) 30 ml PO Q6H PRN PRN Reason: INDIGESTION Anastrozole (Arimidex (Nf)) 1 mg PO DAILY [facility] Last Admin: 08/23/17 09:43 Dose: 1 mg Aspirin (Aspirin Ec Low Dose*) 81 mg PO DAILY [facility] Last Admin: 08/23/17 09:42 Dose: 81 mg Clonazepam (Klonopin Tab(*)) 0.5 mg PO TID PRN PRN Reason: ANXIETY Last Admin: 08/23/17 23:43 Dose: 0.5 mg Dextrose (D50w Syringe 50 Ml*) 12.5 gm IV PUSH .FOR FS < 60 - SS PRN PRN Reason: FS < 60 Dextrose (D50w Syringe 50 Ml*) 12.5 gm IV PUSH .FOR FS < 60 - SS PRN PRN Reason: FS < 60 Docusate Sodium (Colace Cap*) 100 mg PO BID PRN PRN Reason: CONSTIPATION Last Admin: 08/21/17 10:40 Dose: 100 mg Gabapentin (Neurontin Cap(*)) 300 mg PO DAILY [facility] Last Admin: 08/23/17 09:42 Dose: 300 mg Guaifenesin (Mucinex*) 1,200 mg PO BID [facility] Heparin Sodium (Porcine) (Heparin Vial(*)) 5,000 units SUBCUT Q8HR [facility] Last Admin: 08/24/17 05:27 Dose: 5,000 units Insulin Glargine (Lantus(*)) 40 units SUBCUT Q24H [facility] Last Admin: 08/23/17 13:11 Dose: 40 units Insulin Human Lispro (Humalog*) 0 units SUBCUT ACHS [facility] PRN Reason: Protocol Last Admin: 08/23/17 21:15 Dose: 3 units Levalbuterol HCl (Xopenex 0.63mg/3ml Neb*) 0.63 mg INH Q4H PRN PRN Reason: SOB/WHEEZING Losartan Potassium (Cozaar Tab*) 100 mg PO DAILY [facility] Meclizine HCl (Antivert Tab*) 25 mg PO TID [facility] Last Admin: 08/23/17 21:13 Dose: 25 mg Meclizine HCl (Antivert Tab*) 25 mg PO DAILY PRN PRN Reason: DIZZINESS Last Admin: 08/23/17 17:34 Dose: 25 mg Ondansetron HCl (Zofran Odt Tab*) 4 mg SL Q6H PRN PRN Reason: NAUSEA/VOMITING Oxycodone/Acetaminophen (Percocet 5/325 Tab*) 1 tab PO Q4H PRN PRN Reason: Pain Last Admin: 08/23/17 21:13 Dose: 1 tab Polyethylene Glycol/Electrolytes (Miralax*) 17 gm PO DAILY PRN PRN Reason: CONSTIPATION Last Admin: 08/23/17 05:39 Dose: 17 gm Senna (Senokot Tab*) 1 tab PO BID PRN PRN Reason: CONSTIPATION Last Admin: 08/21/17 09:24 Dose: 1 tab Sertraline HCl (Zoloft*) 50 mg PO DAILY [facility] Last Admin: 08/23/17 09:43 Dose: 50 mg Vital Signs - 8 hr 08/24/17 08/24/17 08/24/17 01:03 03:24 03:45 Temperature 97.5 F Pulse Rate 77 Respiratory 18 16 16 Rate Blood Pressure 168/54 (mmHg) O2 Sat by Pulse 98 Oximetry Oxygen Devices in Use Now: None Appearance: Patient is an 87yo female who is outwardly morose and weepy who is otherwise sitting in the bed in [facility]. Eyes: No Scleral Icterus, PERRLA Ears/Nose/Mouth/Throat: NL Teeth, Lips, Gums, Clear Oropharnyx, Mucous Membranes Moist Neck: NL Appearance and Movements; NL JVP, Trachea Midline Respiratory: Symmetrical Chest Expansion and Respiratory Effort, Clear to Auscultation Cardiovascular: NL Sounds; No Murmurs; No JVD, RRR, - - Pulses 2+ in B/L LE. Abdominal: NL Sounds; No Tenderness; No Distention, No Hepatosplenomegaly Lymphatic: No Cervical Adenopathy Extremities: No Clubbing, Cyanosis, - - Trace Edema Skin: No Rash or Ulcers Neurological: Alert and Oriented x 3, - - CN II=XII intact. Generalized weakness and poor effort with exam. Result Diagrams: 08/19/17 20:30 08/19/17 20:30 Additional Lab and Data: Lab Results Assess/Plan/Problems-Billing Assessment: - Patient Problems (1) Weakness Current Visit: No Status: Acute Code(s): R53.1 - WEAKNESS SNOMED Code(s): 69117194 Comment: Weakness. Likely due to feeling of general not well feeling. PT/OT and stimulation from family and friends would likely help to improve her well being. (2) Depression Current Visit: Yes Status: Acute Code(s): F32.9 - MAJOR DEPRESSIVE DISORDER , SINGLE EPISODE, UNSPECIFIED SNOMED Code(s): 92054766 Comment: See above. Patient had to be moved up here from her home and has lost her independence. All of her friends have recently too. Sertraline increased. Consider increasing again at later date. (3) Headache Current Visit: Yes Status: Acute Code(s): R51 - HEADACHE SNOMED Code(s): 06015427 Comment: Headache resolved and recurs infrequently. Responds to Tylenol. Possibly tension related from neck pain. Consider muscle relaxants if mental state improves on antidepressant therapy. (4) Breast cancer Current Visit: No Status: Acute Code(s): C50.919 - MALIGNANT NEOPLASM OF UNSP SITE OF UNSPECIFIED FEMALE BREAST SNOMED Code(s): 163497764 Comment: Stable. Continue anastrozole. Follow up with Oncology outpatient. (5) Diastolic CHF Current Visit: No Status: Acute Code(s): I50.30 - UNSPECIFIED DIASTOLIC ( CONGESTIVE) HEART FAILURE SNOMED Code(s): 658374705 Comment: No signs of exacerbation or fluid overload. Follow up with Cardiology outpatient. (6) Neuropathy Current Visit: No Status: Acute Code(s): G62.9 - POLYNEUROPATHY, UNSPECIFIED SNOMED Code(s): 908459709 Comment: Continue gabapentin. (7) Stage II pressure ulcer Current Visit: No Status: Acute Code(s): L89.92 - PRESSURE ULCER OF UNSPECIFIED SITE, STAGE 2 SNOMED Code(s): 772171257 Comment: Continue Mepilex and frequent repositioning. No signs of current infection (8) Diabetes mellitus Current Visit: No Status: Chronic Code(s): E11.9 - TYPE 2 DIABETES MELLITUS WITHOUT COMPLICATIONS SNOMED Code(s): 29508056 Comment: Continue Lantus of 40 U q 24 hrs plus Lispro by SS. (9) Vertigo Current Visit: No Status: Chronic Code(s): R42 - DIZZINESS AND GIDDINESS SNOMED Code(s): 577061892 Comment: Continue meclizine scheduled (10) DNR (do not resuscitate) Current Visit: No Status: Acute (11) DVT prophylaxis Current Visit: No Status: Acute Code(s): ELX3063 - SNOMED Code(s): 358689030 Comment: SQ heparin Status and Disposition: Patient will be discharged to [facility] today.
[2017-08-24] MEDS: oxyCODONE/Acetamin 5/325 MG* TAB PO PRN (08:30)
[2017-08-24] MEDS: Meclizine TAB* 12.5 MG PO SCH (08:31)
[2017-08-24] MEDS: Gabapentin CAP(*) 300 MG PO SCH (08:32)
[2017-08-24] MEDS: Sertraline* 50 MG TAB PO SCH (08:33)
[2017-08-24] MEDS: Aspirin EC Low Dose* 81 MG TAB.EC PO SCH (08:33)
[2017-08-24] MEDS: Insulin LISPRO* 1 UNITS UNIT SUBCUT SCH (08:33)
[2017-08-24] MEDS: CMC: Anastrozole (NF) 1 MG TAB PO SCH (08:34)
[2017-08-24] MEDS ORDERED: Losartan TAB* 25 MG PO SCH (09:00)
[2017-08-24 09:25] VITALS: BP 146/45
== END 2017-08-24 11:10 | DRG 103 ==
LOC: ED 17:56 → MED 08-20 01:41
PROVIDERS: ADMIT Pediatrics; ATTEND Internal Medicine
DX: R51 Headache (principal); L89.312 Pressure ulcer of right buttock, stage 2; E11.40 Type 2 diabetes mellitus with diabetic neuropathy, unspecified; I11.0 Hypertensive heart disease with heart failure; I50.32 Chronic diastolic (congestive) heart failure; C50.919 Malignant neoplasm of unspecified site of unspecified female breast; M54.2 Cervicalgia; Z66 Do not resuscitate; R53.1 Weakness; E78.5 Hyperlipidemia, unspecified; H91.90 Unspecified hearing loss, unspecified ear; J45.909 Unspecified asthma, uncomplicated; I25.10 Atherosclerotic heart disease of native coronary artery without angina pectoris; F32.9 Major depressive disorder, single episode, unspecified; H53.149 Visual discomfort, unspecified; R42 Dizziness and giddiness; K59.00 Constipation, unspecified; Z82.3 Family history of stroke; Z95.1 Presence of aortocoronary bypass graft; Z98.41 Cataract extraction status, right eye; Z98.42 Cataract extraction status, left eye; Z79.82 Long term (current) use of aspirin; Z79.4 Long term (current) use of insulin
CPT/HCPCS: 36415; 70496; 70498; 80053; 81003; 81015; 83036; 84443; 85025; 85610; 85730; 86140; 87086; A9270-GY; J1644; J2270; J2405; J7614; Q9967